=== PATIENT | female | born 1960 | race Caucasian/White ===

== ENCOUNTER 2017-02-08 16:30 | Emergency (ER) | payer BC ==
[2017-02-08 17:01] VITALS: BP 132/83
--- NOTE | 2017-02-08 18:07 | UC ---
Skin Complaint HPI - HPI Summary HPI Summary: The patient comes in today for: 1. Skin condition: Onset: 2-3 hours. Palliative/provocative: Pressing or flexing to a fish makes it worse. Quality: Throbbing, tightness. Region: Dorsum of the left hand. Severity: 4/10 Time: Constant. Associated symptoms: Event: She was emptying a sprinkler installer bucket and while doing so noticed a spider on her hand. She felt a bite and she shook her hand and the spider flew off. Headache: Left hand: throbbing, tightness, She also complains of feeling dizziness (unbalanced). Last Tetanus was done in the last 10 years. * - History of Current Complaint Chief Complaint: [facility] Time Seen by Provider: 02/08/17 17:49 Stated Complaint: SPIDER BITE,DIZZY, SWELLING AT THE SITE Hx Obtained From: Patient, Family/Brewmaster Hx Last Menstrual Period: 30 years ago. - Allergy/Home Medications Allergies/Adverse Reactions: Allergies Allergy/AdvReac Type Severity Reaction Status Date / Time Sulfa Drugs Allergy Severe Hives Verified 12/31/16 14:19 artifical chemical Allergy Unknown Hives Uncoded 12/31/16 14:19 Home Medications: Home Medications Aspirin [Aspirin 81 MG TAB] 81 mg PO DAILY 02/08/17 [History Confirmed 02/08/17] Indomethacin CAP* [Indocin CAP*] 25 mg PO BID 02/08/17 [History Confirmed ] Montelukast Sodium TAB* [Singulair 5 mg TAB*] 5 mg PO DAILY 02/08/17 [History Confirmed 02/08/17] Review of Systems Constitutional: Negative Skin: Rash Eyes: Negative ENT: Negative Respiratory: Negative Cardiovascular: Negative Gastrointestinal: Negative Genitourinary: Negative All Other Systems Reviewed And Are Negative: Yes PMH/Surg Hx/FS Hx/Imm Hx Previously Healthy: No - Tremor of head, Rheumatoid arthritis, Cardiovascular History: Hypertension Respiratory History: Asthma Psychological History: Anxiety - Surgical History Surgical History: Yes Surgery Procedure, Year, and Place: TOTAL RIGHT KNEE RECONSTRUCTION, ACL REPAIR , TWO RIGHT KNEE SCOPINGS,TOTAL HYSTERECTOMY,RECTAL REPAIR,LASER EYE SURGERY. LAPROSCOPIC ABLASION, LYMPH GLAND BIOPSY. ACL REPAIR RIGHT-SCAR TISSUE REMOVED FROM RIGTH ARM - Family History Known Family History: Positive: Cardiac Disease, Hypertension, Diabetes - Social History Occupation: Unemployed Lives: With Family Alcohol Use: Rare Substance Use Type: None Smoking Status (MU): Never Smoked Tobacco - Immunization History Most Recent Tetanus Shot: Within past 10 yrs. Physical Exam Triage Information Reviewed: Yes Appearance: Well-Appearing, No Pain Distress, Well-Nourished Vital Signs: Initial Vital Signs Temp 98.0 F 02/08/17 16:54 Pulse 79 02/08/17 16:54 Resp 18 02/08/17 16:54 BP 132/83 02/08/17 16:54 Pulse Ox 100 02/08/17 16:54 Vital Signs Reviewed: Yes Eyes: Positive: Conjunctiva Clear. Negative: Discharge ENT: Positive: Hearing grossly normal. Negative: Pharyngeal erythema, Nasal congestion, Nasal drainage, TM bulging, TM dull, TM red, Tonsillar swelling, Tonsillar exudate Dental: Negative: Gross Decay/Caries @, Dental Fracture @ Neck: Positive: Supple, Nontender, No Lymphadenopathy. Negative: Nuchal Rigidity Respiratory: Positive: Lungs clear, No respiratory distress, No accessory muscle use. Negative: Crackles, Wheezing Cardiovascular: Positive: RRR, No Murmur Abdomen Description: Positive: Nontender, No Organomegaly, Soft. Negative: Distended, Guarding, Peritoneal Signs Musculoskeletal: Positive: Strength Intact, ROM Intact, Edema @, Other: - Left hand: There was an ecchymotic area of the dorsum of the left hand with central induration. There was tenderness present. There was mild edema. He had full range of motion of her left hand/fingers. Neurological: Positive: Alert, Muscle Tone Normal Psychological: Positive: Age Appropriate Behavior, Consolable Skin: Negative: rashes, breakdown Course/Dx - Course Course Of Treatment: Patient told about spider bite care and also her was told of this. - Differential Diagnoses - Skin Complaint Differential Diagnoses: Impetigo, Tinea - Diagnoses Provider Diagnoses: Insect bite. Discharge - Discharge Plan Condition: Stable Disposition: HOME Patient Education Materials: Insect Bite or Sting (ED) Referrals: Ninoska Mina MD [Primary Care Provider] - 2 Days (Please see your primary care provider in a couple days to see how well you are doing. If you get worse , please be seen sooner. ) Additional Instructions: Please see your primary care provider in 2-3 days to see how well you are doing. If you get worse (increasing redness, soreness, swelling or discharge) please be seen sooner. Elevated and apply cold compresses (20 minutes on, and 20 minutes off) several times a day for the next 48 hours.).
== END 2017-02-08 18:50 | disposition home or self-care (01) ==
LOC: UCEAST 16:30
DX: S60.562A Insect bite (nonvenomous) of left hand, initial encounter (principal); W57.XXXA Bitten or stung by nonvenomous insect and other nonvenomous arthropods, initial encounter; Y92.9 Unspecified place or not applicable
CPT/HCPCS: 99212; G0463

== ENCOUNTER 2017-10-27 07:30 | Inpatient (IN) | payer BC ==
--- NOTE | 2017-10-14 20:54 | HP ---
HISTORY AND PHYSICAL: DATE OF OFFICE VISIT: 10/14/17 DATE OF SURGERY: 10/27/17 SURGEON: Eugenie Braden MD* (dictated by LATHA Oliveira). PROCEDURE: Right total knee arthroplasty. CHIEF COMPLAINT: Right knee pain. HISTORY OF PRESENT ILLNESS: Ms. De Dios is a 57-year-old female with complaints of right knee pain. She has failed conservative management and elected to proceed with a right total knee arthroplasty, which is scheduled for 10/27/[address] Braden. PAST MEDICAL HISTORY: Hypertension, anxiety, cervical dystonia, chronic pain syndrome, ankylosing spondylitis, hyperlipidemia and asthma. PAST SURGICAL HISTORY: Tubal ligation, hysterectomy, vein stripping, right knee arthroscopy x5, axillary lymphadenectomy, laser eye surgery and alex- neuropathy. CURRENT MEDICATIONS: 1. Montelukast sodium 10 mg daily. 2. EpiPen as needed. 3. mg twice daily. 4. Trazodone 50 mg q.h.s. 5. Propranolol 20 mg twice a day. 6. Clonazepam 0.5 mg as needed. 7. Dymista, allergy. 8. Lilli, allergy. 9. Dulera. 10. Pazeo. 11. Ventolin HFA. 12. Oxybutynin chloride 5 mg daily. 13. Hair Skin and Nails every day. 14. Calcium with vitamin D daily. 15. Vitamin B and fish oil. ALLERGIES: BIAXIN, environmental and CODEINE causing nausea. FAMILY HISTORY: Family history of diabetes, aortic aneurysm, coronary artery disease, stroke, Castleman's disease and schizophrenia. SOCIAL HISTORY: She is a 57-year-old female. She lives with her . She is a retired teacher at [employer]. She does not smoke, use drugs or alcohol. REVIEW OF SYSTEMS: A complete 14 point review of systems was reviewed with the patient, is positive for asthma. She denies history of DVT, PE, hepatitis C or HIV. PHYSICAL EXAM: GENERAL: She is well developed, well nourished, in no acute distress. VITAL SIGNS: She stands 5 feet 3 inches tall, weighs 135 pounds, her blood pressure is 126/86, heart rate is 80. HEENT: She is normocephalic, atraumatic. NECK: Supple. No palpable lymph nodes. PULMONARY: Lungs are clear to auscultation bilaterally. CARDIO: Regular rate and rhythm. Strong S1 and S2. ABDOMEN: Soft, nontender, nondistended. NEUROLOGIC: She is alert and oriented x3. Cranial nerves II through XII are intact. MUSCULOSKELETAL: Right lower extremity, skin is intact. There are no open wounds or abrasions. She has some tenderness over the medial and lateral joint line. 5 to 130 degrees of motion with patellofemoral crepitus. There is a moderate effusion. 2+ dorsalis pedis pulses. She has intact sensation in her lower extremities. Muscle group strengths are intact at 5/5. ASSESSMENT AND PLAN: Ms. De Dios is a 57-year-old female with end-stage osteoarthritis of right knee. She has failed conservative management and elected to proceed with a right total knee arthroplasty, which is scheduled for 10/27/[address] Braden discussed the risks and benefits of the surgery on today's visit. All of her questions are answered. She will follow with Dr. Braden in 2 weeks after the surgery. LATHA OLIVEIRA [id number]/[facility] #: [id number] ABILIO
[~2017-10-27 07:30] MED LIST: Acetaminophen IV 1GM/100ML * 1,000 MG/100 ML VIAL IVPB ONE; Buffered Lidocaine 0.9% SYRIN* 5 ML/SYR SYRINGE INTRADERM ONE; Dexamethasone IV* 4 MG/ML 1 ML (4 MG) IV SLOW PU ONE; Famotidine IV* 10 MG/ML 2 ML (20 mg) IV ONE; Gabapentin CAP(*) 300 MG PO ONE; celeCOXIB CAP* 200 MG PO ONE
[2017-10-27] MEDS ORDERED: Famotidine IV* 10 MG/ML 2 ML (20 mg) ONE (07:42)
[2017-10-27] MEDS ORDERED: Gabapentin CAP(*) 300 MG ONE (07:42)
[2017-10-27] MEDS ORDERED: celeCOXIB CAP* 100 MG ONE (07:42)
[2017-10-27] MEDS ORDERED: ceFAZolin 2 GM (*##) 2 GM/100 ML BAG USE CEFA2SOL IVPB ONE (07:42)
[2017-10-27] MEDS ORDERED: Buffered Lidocaine 0.9% SYRIN* 5 ML/SYR SYRINGE ONE (07:42)
[2017-10-27] MEDS ORDERED: Dexamethasone IV* 4 MG/ML 1 ML (4 MG) ONE (07:42)
[2017-10-27] MEDS ORDERED: Acetaminophen IV 1GM/100ML * 100 ML ONE (07:45)
--- OUTSIDE RECORDS SUMMARY | 2017-10-27 07:46 | XMS REPORT ---
:1960 External Reference #:[id number] Author Organization [facility] Address [address] [address] Phone [phone] Care Team Providers Name Role Phone Ninoska Mina MD Primary Care Physician Unavailable Payers Type Date Identification Numbers Payment Provider Subscriber Commercial Effective: Policy Number: [id number] BS Facets Arden De Dios 2011 PayID: [id number] [address] [address] [place] [address] Workers Compensation Expires: Policy Number: TST Workers Arden De Dios 2011 [id number] Comp Onset: 2011 PayID: [id number] [address] [place] [address] Medigap Part B Effective: 2010 Policy Number: BS Of [place] Arden De Dios [id number] Expires: 2011 PayID: [id number] [address] [address] [place] [address] Workers Compensation Expires: 2011 Policy Number: TSTWC Arden De Dios [id number] Onset: 2011 PayID: [id number] [address] [place] [id number] Advance Directives Type Date Description Status Comment Other Directive 09/10/2017 Health Care Proxy Current and Verified Problems Date Description Provider Status Onset: 03/22/2011 Benign essential hypertension Vicenta Bashir N.PJustino Active Onset: 08/28/2012 Ankylosing spondylitis Tim Mosher M.D. Active Onset: 08/28/2012 Spinal stenosis of lumbar region Tim Mosher M.D. Active Onset: 08/20/2013 Strain of rotator cuff capsule Tim Mosher M.D. Active Onset: 08/20/2013 Chronic pharyngitis Tim Mosher M.D. Active Onset: 03/08/2014 Hyperlipidemia Tim oMsher M.D. Active Onset: 03/08/2014 Cervical spondylosis without Tim Mosher M.D. Active myelopathy Onset: 11/29/2014 Chronic pain syndrome Tim Mosher M.D. Active Onset: 10/24/2015 Anxiety Ninoska Mina M.D. Active Onset: 08/27/2016 Lumbosacral stenosis Zsoficarol Diaz, [employer] Active Onset: 02/11/2017 Localized, secondary osteoarthritis Eugenie Braden M.D. Active Onset: 02/20/2017 Isolated cervical dystonia Ninoska Mina M.D. 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, tutoring Cigarette Use Never Smoked Cigarettes ETOH Use Denies alcohol use Smoking Patient has never smoked Exercise Type/Frequency Exercises regularly Allergies, Adverse Reactions, Alerts Date Description Reaction Status Severity Comments 08/11/2010 Biaxin Urticaria active Moderate to Severe 05/21/2014 Madelia Anaphylaxis, active Moderate to Urticaria Severe 02/21/2015 Envioromental Allergic asthma active Severe 02/28/2017 Acetaminophen / Codeine active Medications Medication Date Status Form Strength Qnty SIG Indications Ordering Provider Buspirone HCL 10/10 Active Tablets 5mg 60tab 1 by Lewis s mouth Arlene, DATAC[employer] DEVELOPER twice a day Hydrocodone-Aceta 05/04 Active Tablets 5-325mg 90tab 1 tab by Eugenie ayala s mouth Sampson, every 6 M.D. hours as needed for pain Montelukast 02/21 Active Tablets 10mg 90tab 1 tab by T78.40xA Zsofia s mouth Joe, every [employer] day. Epipen 2-Ricardo 05/21 Active Solution 0.3mg/0.3 2apk 995.3 Auto-Inject ML Endo, M.D. Venlafaxine HCL 12/04 Active Caps ER 150mg 60cap take 1 24HR s capsule Cotton, by mouth M.D. twice daily Trazodone HCL 04/15 Active Tablets 50mg 30tab take 1 s tablet by Cotton, mouth M.D. nightly at bedtime as needed Propranolol HCL Active Tablets 20mg 180ta 1 by bs mouth Cotton, twice a M.D. day Clonazepam Active Tablets 0.5mg 60tab Take 1/ Ninoska s Tablet By Cotton, Mouth In M.D. The Morning And In The Afternoon , And 1 Tablet At Night *Max 2/Day* Dymista Active Suspension 137-50mcg 2 spray 461.8 Unknown /0000 /Act each nostril bid Dulera Active Aerosol 200-5mcg/ Danielewic /0000 Act z, Trini, TIO Pazeo Active Solution 0.7% Unknown /0000 Ventolin HFA Active Aerosol 108(90Bas Unknown /0000 e) mcg/Act Oxybutynin Active Tablets 5mg 1 PO qd Unknown Chloride /0000 Cemill/Bioflavono Active Tablets take 1 Unknown ids tab daily Calcium 500+D Active Tablets 500-200mg 1 by Unknown /0000 -Unit mouth twice a day B-Stress Active Capsules Unknown /0000 Fish Oil Active Capsules 1000mg 1 by Unknown /0000 mouth every day Clarinex Active Tablets 5mg once Unknown /0000 daily Cephalexin 02/11 Hx Tablets 500mg 20tab 1 by s mouth Sampson, - four M.D. 02/28 times day for 5 days Augmentin 07/21 Hx Tablets 875-125mg 20tab one by J20.9 s mouth Varn, N.P. - every 12 07/31 hours ten days Benzonatate 07/21 Hx Capsules 100mg 30cap one by J20.9 s mouth Varn, N.P. - three 08/04 daily as needed for cough Fluticasone 12/13 Hx Suspension 50mcg/Act 16gm 2 sprays 461.8 Lewis Propionate each Arlene, DATAC[employer] DEVELOPER - nostril 05/27 qd weeks Levofloxacin 11/13 Hx Tablets 500mg 10tab one by Lewis s mouth Arlene, DATAC[employer] DEVELOPER - daily for 11/23 10 Augmentin 10/31 Hx Tablets 875-125mg 14tab 1 tablet 461.8 Lewis s by mouth Arlene, DAT[employer] DEVELOPER - q12 hours 11/10 for days Fluticasone 10/31 Hx Suspension 50mcg/Act 16gm 2 sprays 461.8 Lewis Propionate each Arlene, [employer] DEVELOPER - nostril 11/12 qd weeks Cheratussin ac 10/31 Hx Syrup 100-10mg/ 118ml take 5-10 461.8 Lewis 5ML millilite Arlene, DATAC[employer] DEVELOPER - rs every 11/06 4-6 hours as needed for cough. Ventolin HFA 10/31 Hx Aerosol 108(90Bas 18uni Inhale 461.8 Lewis e) ts Two Puffs Arlene, DAT[employer] DEVELOPER - mcg/Act By Mouth 05/27 Times Daily as Needed Ciclopirox 08/13 Hx Solution 8% 6.600 apply to 110.1 ml affected Varn, N.P. - toenails 08/14 and surroundi ng skin at bedtime Ergocalciferol 10/03 Hx Capsules 62039Apxr 8caps 1 cap by Bri mouth Rabia, - every M.D., FACP Amoxicillin 08/20 Hx Capsules 500mg 30cap 1 tab po 472.1 s tid for Endo, M.D. - 10 days 09/19 Lidoderm 08/28 Hx Patches 5% 30uni topical 724.02 ts 10 hours Endo, M.D. - 10/31 Cyclobenzaprine 08/28 Hx Tablets 5mg 90tab 1 hs and 724.02 s in 3 days Endo, M.D. - increase 07/20 to 2 h s and add 1 prn Venlafaxine HCL 02/04 Hx Caps ER 150mg 60cap Take One Bri ER 24HR s Capsule Rabia, - By Mouth M.D., FACP 08/28 Twice Daily Indomethacin 08/31 Hx Capsules 25mg 360ca take 1 M45.7 ofi ps capsules Joe, - by mouth [employer] 04/19 twice daily as needed Hydrocodone/Aceta 10/10 Hx Tablets 5-325mg 30tab 1-2 tabs 728.85 Bri minophen s by mouth Rabia, - every 6 M.D., FACP 08/28 hours needed Cyclobenzaprine 05/24 Hx Tablets 5mg 30tab take one 728.85 Bri HCL s at Rabia, - bedtime M.D., FACP 11/23 as needed Indomethacin ER 1010 Hx Capsules ER 75mg take one capsule Jessica Mosher - by mouth 08/31 twice a day with food Indomethacin ER 05/24 Hx Capsules ER 75mg take one capsule Jessica Mosher - by mouth 03/01 twice a day with food Metoprolol 05/10 Hx Tablets ER 50mg 90tab Take One Bri Succinate 24HR s Tablet By Rabia - Mouth One M.D., FACP 08/28 Time Daily Hydroxychloroquin 02/09 Hx Tablets 200mg 60tab Take One Tim e Sulfate s Tablet By Jessica Mosher - Mouth 07/20 Daily Sulfasalazine 12/03 Hx Tablets 500mg 60tab 2 po bid s Jessica Mosher - 01/11 Cyclobenzaprine 12/03 Hx Tablets 5mg 30tab 1 bid Bri HCL s Zackary Camarillo M.D., FACP 01/11 Indomethacin 12/03 Hx Capsules 25mg 120ca Take Two ps Capsules Jessica Mosher - By Mouth 05/24 Twice Daily Effexor 11/23 Hx Caps ER 150mg 60cap 1 by 24HR s mouth Rabia, - twice M.D., FACP 03/08 Effexor 08/11 Hx Caps ER 150mg 60cap 1 by Bri 24HR s mouth Rabia, - twice M.D., FACP 11/23 Augmentin 08/11 Hx Tablets 500-125mg Rabia, - [facility]., [facility] 08/11 Augmentin 08/11 Hx Tablets 875-125mg 20tab one by s mouth Rabia, - every 12 M.D., FACP 09/11 hours ten days Veramyst 08/11 Hx Suspension 27.5mcg/S 1Mont 2 sprays pray h each Rabia, - nostril M.D., [facility] 05/12 daily Anamantle HC 05/05 Hx Kit 3-0.5% 20uni Apply ts Twice Cotton, - Daily For M.D. 08/11 Toprol XL 04/21 Hx Tablets ER 50mg 90tab 1 tablet 24HR s daily Rabia, - M.D., [facility] 05/10 Ivermectin 02/20 Hx 200mcg 5unit take 5 po s in 1 dose Rabia, - on empty M.D., [facility] 08/11 & repeat in 2 weeks Plaquenil Hx Tablets 200mg 60tab 1 tablet Unknown /0000 s twice a - day 02/09 Xyzal Hx Tablets 5mg 30tab 1 tablet Unknown /0000 s daily as - needed 08/28 Effexor XR Hx Caps ER 75mg 30cap 1 capsule Bri 24HR s twice a Rabia, - day M.D., FACP 08/11 Indomethacin 25MG Hx Capsules Unknown 60cap 2 tablets Tim /0000 s twice a Endo, M.D. - day 12/03 Vivelle-Dot Hx Patches 0.075mg/2 24uni 2 patches Unknown /0000 Biweek 4HR ts weekly - 02/21 Metoprolol Hx Tablets ER 50mg 90tab 1 by Unknown Succinate ER /0000 24HR s mouth - every day 03/08 Lilli Allergy Hx Tablets 1 tab by Unknown /0000 mouth at - dinner 10/10 Zyrtec Allergy Hx Tablets 10mg 1 by Unknown /0000 mouth - every Am 02/28 Tumersaid 0000 Hx Tablets 1 by Unknown /0000 mouth - daily. 10/10 Medications Administered in Office Medication Date Status Form Strength Qnty SIG Indications Ordering Provider Synvisc Or Administered Injection Eugenie Synvisc-One Berny Braden M.D. Injection 1 MG Synvisc Or Administered Injection Eugenie Synvisc-One Berny Braden M.D. Injection 1 MG Synvisc Or Administered Injection Eugenie Synvisc-One Berny Braden M.D. Injection 1 MG Depomedrol Administered Injection Eugenie 40MG Berny Braden M.D. Immunizations CPT Code Status Date Vaccine Lot # [id number] Given 05/13/2017 Influenza Virus Vaccine, Quadrivalent, Split, Preservative Free Q2037 Given 08/18/2016 Fluvirin Im 3Yrs And Older 23467 Given 06/12/2016 Influenza Virus Vaccine, Quadrivalent, Split, Preservative Free 40065 Given 06/12/2016 Influenza Virus Vaccine, Quadrivalent, Split, Preservative Free 33239 Given 06/12/2016 Influenza Virus Vaccine, Quadrivalent, Split, Preservative Free Q2037 Given 05/21/2015 Fluvirin Im 3Yrs And Older Q2037 Given 05/15/2014 Fluvirin Im 3Yrs And Older Q2035 Given 05/15/2014 Afluria Vaccine 22435 Given 09/19/2013 Tdap - Tetanus/Diptheria/Acellular Pertussis [id number] Vital Signs Date Vital Result Comment 10/14/2017 Height 63.5 inches 5'3.50" Weight 137.00 lb Heart Rate 80 /min BP Systolic 126 mmHg BP Diastolic 86 mmHg BMI (Body Mass Index) 23.9 kg/m2 10/10/2017 Weight 139.00 lb with shoes Heart Rate 81 /min BP Systolic 114 mmHg BP Diastolic 86 mmHg O2 % BldC Oximetry 98 % 05/04/2017 Height 63.5 inches 5'3.50" Weight 135.00 lb Heart Rate 79 /min BP Systolic 138 mmHg BP Diastolic 94 mmHg Pain Level 7 BMI (Body Mass Index) 23.5 kg/m2 04/27/2017 Height 63 inches 5'3" Weight 137.00 lb BP Systolic 122 mmHg BP Diastolic 80 mmHg Respiratory Rate 18 /min Pain Level 2 BMI (Body Mass Index) 24.3 kg/m2 04/20/2017 Height 63 inches 5'3" Weight 137.00 lb BP Systolic 118 mmHg BP Diastolic 76 mmHg Respiratory Rate 18 /min Pain Level 3 BMI (Body Mass Index) 24.3 kg/m2 03/11/2017 Height 63 inches 5'3" Weight 137.00 lb Heart Rate 84 /min BP Systolic 124 mmHg BP Diastolic 77 mmHg Respiratory Rate 17 /min Body Temperature 98.4 F Pain Level 4 BMI (Body Mass Index) 24.3 kg/m2 03/07/2017 Height 63 inches 5'3" Weight 137.00 lb Heart Rate 87 /min BP Systolic 114 mmHg BP Diastolic 80 mmHg Body Temperature 98.7 F Pain Level 4 O2 % BldC Oximetry 97 % BMI (Body Mass Index) 24.3 kg/m2 02/28/2017 Height 63 inches 5'3" Weight 138.25 lb Heart Rate 74 /min BP Systolic 130 mmHg BP Diastolic 80 mmHg Body Temperature 97.5 F O2 % BldC Oximetry 95 % BMI (Body Mass Index) 24.5 kg/m2 02/11/2017 Height 63 inches 5'3" Weight 140.00 lb Heart Rate 76 /min BP Systolic 126 mmHg BP Diastolic 70 mmHg Respiratory Rate 15 /min Body Temperature 97.2 F Pain Level 5 BMI (Body Mass Index) 24.8 kg/m2 10/25/2016 Weight 137.00 lb Heart Rate 83 /min BP Systolic 140 mmHg BP Diastolic 100 mmHg BP Systolic Sitting 140 mmHg BP Diastolic Sitting 92 mmHg O2 % BldC Oximetry 97 % 08/27/2016 Height 63 inches 5'3" Weight 138.25 lb Heart Rate 84 /min BP Systolic Sitting 120 mmHg BP Diastolic Sitting 70 mmHg Respiratory Rate 14 /min Pain Level 4 BMI (Body Mass Index) 24.5 kg/m2 07/21/2016 Weight 139.00 lb Heart Rate 86 /min BP Systolic Sitting 128 mmHg BP Diastolic Sitting 82 mmHg Respiratory Rate 15 /min Body Temperature 97.4 F O2 % BldC Oximetry 98 % 11/26/2015 Height 63 inches 5'3" Weight 143.00 lb Heart Rate 88 /min BP Systolic Sitting 130 mmHg BP Diastolic Sitting 80 mmHg Respiratory Rate 14 /min Pain Level 4 BMI (Body Mass Index) 25.3 kg/m2 10/24/2015 Height 63 inches 5'3" Weight 140.00 lb Heart Rate 88 /min BP Systolic Sitting 134 mmHg BP Diastolic Sitting 82 mmHg Respiratory Rate 15 /min Body Temperature 98.2 F O2 % BldC Oximetry 98 % BMI (Body Mass Index) 24.8 kg/m2 05/27/2015 Height 63 inches 5'3" Weight 140.00 lb Heart Rate 76 /min BP Systolic Sitting 120 mmHg BP Diastolic Sitting 70 mmHg Pain Level 4 BMI (Body Mass Index) 24.8 kg/m2 02/21/2015 Weight 138.00 lb Heart Rate 76 /min BP Systolic Sitting 130 mmHg BP Diastolic Sitting 88 mmHg Pain Level 6 12/11/2014 Weight 144.00 lb Heart Rate 77 /min BP Systolic Sitting 124 mmHg BP Diastolic Sitting 83 mmHg Body Temperature 97.8 F 11/29/2014 Height 63 inches 5'3" Weight 144.00 lb Heart Rate 88 /min BP Systolic Sitting 124 mmHg BP Diastolic Sitting 80 mmHg Body Temperature 99.0 F Pain Level 8 BMI (Body Mass Index) 25.5 kg/m2 10/31/2014 Height 63 inches 5'3" Weight 144.00 lb Heart Rate 74 /min BP Systolic 124 mmHg BP Diastolic 86 mmHg Body Temperature 98.3 F O2 % BldC Oximetry 96 % BMI (Body Mass Index) 25.5 kg/m2 08/13/2014 Height 63 inches 5'3" Weight 143.00 lb Heart Rate 68 /min BP Systolic Sitting 128 mmHg BP Diastolic Sitting 88 mmHg BMI (Body Mass Index) 25.3 kg/m2 08/13/2014 Height 63 inches 5'3" Weight 145.00 lb Heart Rate 68 /min BP Systolic Sitting 128 mmHg BP Diastolic Sitting 88 mmHg Pain Level 5 BMI (Body Mass Index) 25.7 kg/m2 05/21/2014 Height 63 inches 5'3" Weight 143.00 lb Heart Rate 80 /min BP Systolic Sitting 130 mmHg BP Diastolic Sitting 86 mmHg Pain Level 7 BMI (Body Mass Index) 25.3 kg/m2 03/08/2014 Height 63 inches 5'3" Weight 141.00 lb Heart Rate 76 /min BP Systolic Sitting 124 mmHg BP Diastolic Sitting 80 mmHg BMI (Body Mass Index) 25.0 kg/m2 03/08/2014 Height 63 inches 5'3" Weight 141.50 lb Heart Rate 76 /min BP Systolic Sitting 132 mmHg BP Diastolic Sitting 92 mmHg Pain Level 5 BMI (Body Mass Index) 25.1 kg/m2 12/28/2013 Height 63 inches 5'3" Weight 143.25 lb Heart Rate 88 /min BP Systolic Sitting 118 mmHg BP Diastolic Sitting 78 mmHg BMI (Body Mass Index) 25.4 kg/m2 10/19/2013 Height 63 inches 5'3" Weight 148.00 lb Heart Rate 79 /min BP Systolic Sitting 126 mmHg BP Diastolic Sitting 88 mmHg BMI (Body Mass Index) 26.2 kg/m2 09/19/2013 Height 63 inches 5'3" Weight 144.00 lb Heart Rate 76 /min BP Systolic Sitting 120 mmHg BP Diastolic Sitting 68 mmHg BMI (Body Mass Index) 25.5 kg/m2 08/20/2013 Height 63 inches 5'3" Weight 147.25 lb Heart Rate 78 /min BP Systolic Sitting 140 mmHg BP Diastolic Sitting 98 mmHg BMI (Body Mass Index) 26.1 kg/m2 07/20/2013 Weight 146.00 lb Heart Rate 78 /min BP Systolic Sitting 122 mmHg BP Diastolic Sitting 80 mmHg Body Temperature 99.0 F 10/23/2012 Height 64 inches 5'4" Weight 142.00 lb Heart Rate 77 /min BP Systolic Sitting 122 mmHg BP Diastolic Sitting 67 mmHg BMI (Body Mass Index) 24.4 kg/m2 08/28/2012 Height 64 inches 5'4" Weight 141.00 lb Heart Rate 84 /min BP Systolic Sitting 118 mmHg BP Diastolic Sitting 76 mmHg BMI (Body Mass Index) 24.2 kg/m2 11/24/2011 Height 64 inches 5'4" Weight 149.50 lb Heart Rate 72 /min BP Systolic Sitting 128 mmHg BP Diastolic Sitting 78 mmHg BMI (Body Mass Index) 25.7 kg/m2 09/23/2011 Height 64 inches 5'4" Weight 152.00 lb Heart Rate 64 /min BP Systolic Sitting 114 mmHg BP Diastolic Sitting 78 mmHg BMI (Body Mass Index) 26.1 kg/m2 07/20/2011 Height 64 inches 5'4" Weight 149.00 lb Heart Rate 74 /min BP Systolic Sitting 120 mmHg BP Diastolic Sitting 78 mmHg BMI (Body Mass Index) 25.6 kg/m2 05/24/2011 Height 64 inches 5'4" Weight 150.00 lb Heart Rate 68 /min BP Systolic Sitting 114 mmHg BP Diastolic Sitting 62 mmHg BMI (Body Mass Index) 25.7 kg/m2 05/12/2011 Height 64 inches 5'4" Weight 150.00 lb Heart Rate 68 /min BP Systolic Sitting 112 mmHg BP Diastolic Sitting 68 mmHg BMI (Body Mass Index) 25.7 kg/m2 03/22/2011 Height 64 inches 5'4" Weight 150.00 lb Heart Rate 68 /min BP Systolic Sitting 122 mmHg BP Diastolic Sitting 76 mmHg Body Temperature 98.9 F BMI (Body Mass Index) 25.7 kg/m2 01/12/2011 Height 64 inches 5'4" Weight 154.00 lb Heart Rate 80 /min BP Systolic 118 mmHg BP Diastolic 70 mmHg BMI (Body Mass Index) 26.4 kg/m2 09/11/2010 Weight 157.75 lb Heart Rate 78 /min BP Systolic 124 mmHg BP Diastolic 88 mmHg 08/11/2010 Weight 152.00 lb Heart Rate 78 /min BP Systolic 116 mmHg 128/82 BP Diastolic 90 mmHg 128/82 Body Temperature 97.7 F Results Test Date Test Result H/L Range Note Order 10/10/2017 EKG results given to laurel Type & Screen 10/10/2017 Patient Blood Type O Positive Antibody Screen NEGATIVE CBC Auto Diff 10/10/2017 White Blood Count 7.4 10^3/uL 3.5-10.8 Red Blood Count 4.67 10^6/uL 4.0-5.4 Hemoglobin 14.1 g/dL 12.0-16.0 Hematocrit 42 % 35-47 Mean Corpuscular Volume 90 fL 80-97 Mean Corpuscular Hemoglobin 30 pg 27-31 Mean Corpuscular HGB Conc 34 g/dL 31-36 Red Cell Distribution Width 13 % 10.5-15 Platelet Count 177 10^3/uL 150-450 Mean Platelet Volume 10 um3 7.4-10.4 Abs Neutrophils 5.2 10^3/uL 1.5-7.7 Abs Lymphocytes 1.2 10^3/uL 1.0-4.8 Abs Monocytes 0.8 10^3/uL 0-0.8 Abs Eosinophils 0.1 10^3/uL 0-0.6 Abs Basophils 0 10^3/uL 0-0.2 Abs Nucleated RBC 0 10^3/uL Granulocyte % 70.6 % 38-83 Lymphocyte % 15.5 % Low 25-47 Monocyte % 11.3 % High 0-7 Eosinophil % 2.0 % 0-6 Basophil % 0.6 % 0-2 Nucleated Red Blood Cells % 0.1 Basic Metabolic Panel 10/10/2017 Sodium 136 mmol/L 133-145 Potassium 4.1 mmol/L 3.5-5.0 Chloride 99 mmol/L Low 101-111 Co2 Carbon Dioxide 30 mmol/L 22-32 Anion Gap 7 mmol/L 2-11 Glucose 80 mg/dL 70-100 Blood Urea Nitrogen 14 mg/dL 6-24 Creatinine 0.72 mg/dL 0.51-0.95 BUN/Creatinine Ratio 19.4 8-20 Calcium 9.8 mg/dL 8.6-10.3 Egfr Non- 83.2 >60 Egfr 107.0 >60 1 Inr/Protime 10/10/2017 Inr 0.94 0.77-1.02 Urine Culture And 10/10/2017 Urine Culture SEE RESULT BELOW 2 Sensitivities Lipid Profile 02/21/2017 Triglycerides 45 mg/dL 3 (Trig/Chol/HDL) Cholesterol 221 mg/dL 4 HDL Cholesterol 71.7 mg/dL 5 LDL Cholesterol 140 mg/dL 6 CBC Auto Diff 10/05/2016 White Blood Count 7.9 10^3/uL 3.5-10.8 Red Blood Count 4.57 10^6/uL 4.0-5.4 Hemoglobin 13.8 g/dL 12.0-16.0 Hematocrit 41 % 35-47 Mean Corpuscular Volume 91 fL 80-97 Mean Corpuscular Hemoglobin 30 pg 27-31 Mean Corpuscular HGB Conc 33 g/dL 31-36 Red Cell Distribution Width 13 % 10.5-15 Platelet Count 155 10^3/uL 150-450 Mean Platelet Volume 11 um3 High 7.4-10.4 Abs Neutrophils 5.8 10^3/uL 1.5-7.7 Abs Lymphocytes 1.3 10^3/uL 1.0-4.8 Abs Monocytes 0.6 10^3/uL 0-0.8 Abs Eosinophils 0.1 10^3/uL 0-0.6 Abs Basophils 0.1 10^3/uL 0-0.2 Abs Nucleated RBC 0.01 10^3/uL Granulocyte % 73.3 % 38-83 Lymphocyte % 16.7 % Low 25-47 Monocyte % 7.6 % 1-9 Eosinophil % 1.0 % 0-6 Basophil % 1.4 % 0-2 Nucleated Red Blood Cells % 0.1 Comp Metabolic Panel 10/05/2016 Sodium 138 mmol/L 133-145 Potassium 4.0 mmol/L 3.5-5.0 Chloride 103 mmol/L 101-111 Co2 Carbon Dioxide 33 mmol/L High 22-32 Anion Gap 2 mmol/L 2-11 Glucose 106 mg/dL High 70-100 Blood Urea Nitrogen 16 mg/dL 6-24 Creatinine 0.70 mg/dL 0.51-0.95 BUN/Creatinine Ratio 22.9 High 8-20 Calcium 9.3 mg/dL 8.6-10.3 Total Protein 6.6 g/dL 6.4-8.9 Albumin 4.0 g/dL 3.2-5.2 Globulin 2.6 g/dL 2-4 Albumin/Globulin Ratio 1.5 1-3 Total Bilirubin 0.30 mg/dL 0.2-1.0 Alkaline Phosphatase 68 U/L 34-104 Alt 22 U/L 7-52 Ast 23 U/L 13-39 Egfr Non- 86.2 >60 Egfr 110.9 >60 7 Laboratory test finding 10/05/2016 C Reactive Protein 1.12 mg/L < 5.00 8 Erythrocyte Sed Rate 20 mm/Hr 0-30 CBC Auto Diff 11/26/2015 White Blood Count 7.6 10^3/uL 3.5-10.8 Red Blood Count 4.38 10^6/uL 4.0-5.4 Hemoglobin 13.2 g/dL 12.0-16.0 Hematocrit 40 % 35-47 Mean Corpuscular Volume 92 fL 80-97 Mean Corpuscular Hemoglobin 30 pg 27-31 Mean Corpuscular HGB Conc 33 g/dL 31-36 Red Cell Distribution Width 13 % 10.5-15 Platelet Count 171 10^3/uL 150-450 Mean Platelet Volume 10 um3 7.4-10.4 Abs Neutrophils 4.7 10^3/uL 1.5-7.7 Abs Lymphocytes 1.9 10^3/uL 1.0-4.8 Abs Monocytes 0.8 10^3/uL 0-0.8 Abs Eosinophils 0.1 10^3/uL 0-0.6 Abs Basophils 0 10^3/uL 0-0.2 Abs Nucleated RBC 0 10^3/uL Granulocyte % 62.4 % 38-83 Lymphocyte % 24.8 % Low 25-47 Monocyte % 10.6 % High 1-9 Eosinophil % 1.6 % 0-6 Basophil % 0.6 % 0-2 Nucleated Red Blood Cells % 0.1 Comp Metabolic Panel 11/26/2015 Sodium 133 mmol/L 133-145 Potassium 3.9 mmol/L 3.5-5.0 Chloride 97 mmol/L Low 101-111 Co2 Carbon Dioxide 30 mmol/L 22-32 Anion Gap 6 mmol/L 2-11 Glucose 80 mg/dL 70-100 Blood Urea Nitrogen 16 mg/dL 6-24 Creatinine 0.70 mg/dL 0.51-0.95 BUN/Creatinine Ratio 22.9 High 8-20 Calcium 9.3 mg/dL 8.6-10.3 Total Protein 6.7 g/dL 6.4-8.9 Albumin 4.4 g/dL 3.2-5.2 Globulin 2.3 g/dL 2-4 Albumin/Globulin Ratio 1.9 1-3 Total Bilirubin 0.30 mg/dL 0.2-1.0 Alkaline Phosphatase 65 U/L 34-104 Alt 23 U/L 7-52 Ast 20 U/L 13-39 Egfr Non- 86.6 >60 Egfr 111.3 >60 9 Laboratory test finding 11/26/2015 C Reactive Protein 1.23 mg/L < 5.00 10 Erythrocyte Sed Rate 18 mm/Hr 0-30 CBC Auto Diff 05/27/2015 White Blood Count 7.9 10^3/uL 4.8-10.8 Red Blood Count 4.49 10^6/uL 4.0-5.4 Hemoglobin 13.9 g/dL 12.0-16.0 Hematocrit 42 % 35-47 Mean Corpuscular Volume 95 fL 80-97 Mean Corpuscular Hemoglobin 31 pg 27-31 Mean Corpuscular HGB Conc 33 g/dL 31-36 Red Cell Distribution Width 13 % 10.5-15 Platelet Count 152 10^3/uL 150-450 Mean Platelet Volume 10 um3 7.4-10.4 Abs Neutrophils 5.3 10^3/uL 1.5-7.7 Abs Lymphocytes 1.6 10^3/uL 1.0-4.8 Abs Monocytes 0.9 10^3/uL High 0-0.8 Abs Eosinophils 0.1 10^3/uL 0-0.6 Abs Basophils 0.1 10^3/uL 0-0.2 Abs Nucleated RBC 0.01 10^3/uL Granulocyte % 67.1 % 38-83 Lymphocyte % 19.5 % Low 25-47 Monocyte % 11.7 % High 1-9 Eosinophil % 1.0 % 0-6 Basophil % 0.7 % 0-2 Nucleated Red Blood Cells % 0.1 Comp Metabolic Panel 05/27/2015 Sodium 135 mmol/L 133-145 Potassium 4.4 mmol/L 3.5-5.0 Chloride 100 mmol/L Low 101-111 Co2 Carbon Dioxide 30 mmol/L 22-32 Anion Gap 5 mmol/L 2-11 Glucose 83 mg/dL 70-100 Blood Urea Nitrogen 17 mg/dL 6-24 Creatinine 0.71 mg/dL 0.51-0.95 BUN/Creatinine Ratio 23.9 High 8-20 Calcium 9.8 mg/dL 8.6-10.3 Total Protein 6.6 g/dL 6.4-8.9 Albumin 4.4 g/dL 3.2-5.2 Globulin 2.2 g/dL 2-4 Albumin/Globulin Ratio 2.0 1-3 Total Bilirubin 0.40 mg/dL 0.2-1.0 Alkaline Phosphatase 72 U/L 34-104 Alt 39 U/L 7-52 Ast 30 U/L 13-39 Egfr Non- 85.5 >60 Egfr 109.9 >60 11 Laboratory test finding 05/27/2015 Erythrocyte Sed Rate 17 mm/Hr 0-30 C Reactive Protein < 1.00 mg/L < 5.00 12 Laboratory test finding 12/12/2014 Throat Culture (SEE NOTE) 13 CBC Auto Diff 12/11/2014 White Blood Count 6.7 10^3/uL 4.8-10.8 Red Blood Count 4.34 10^6/uL 4.0-5.4 Hemoglobin 13.5 g/dL 12.0-16.0 Hematocrit 40 % 35-47 Mean Corpuscular Volume 93 fL 80-97 Mean Corpuscular Hemoglobin 31 pg 27-31 Mean Corpuscular HGB Conc 34 g/dL 31-36 Red Cell Distribution Width 13 % 10.5-15 Platelet Count 138 10^3/uL Low 150-450 Mean Platelet Volume 12 um3 High 7.4-10.4 Abs Neutrophils 3.9 10^3/uL 1.5-7.7 Abs Lymphocytes 1.8 10^3/uL 1.0-4.8 Abs Monocytes 0.8 10^3/uL 0-0.8 Abs Eosinophils 0.1 10^3/uL 0-0.6 Abs Basophils 0.1 10^3/uL 0-0.2 Abs Nucleated RBC 0 10^3/uL Granulocyte % 58.6 % 38-83 Lymphocyte % 27.1 % 25-47 Monocyte % 11.9 % High 1-9 Eosinophil % 1.5 % 0-6 Basophil % 0.9 % 0-2 Nucleated Red Blood Cells % 0 Comp Metabolic Panel 12/11/2014 Sodium 136 mmol/L 133-145 Potassium 4.5 mmol/L 3.5-5.0 Chloride 103 mmol/L 101-111 Co2 Carbon Dioxide 29 mmol/L 22-32 Anion Gap 4 mmol/L 2-11 Glucose 90 mg/dL 70-100 Blood Urea Nitrogen 15 mg/dL 6-24 Creatinine 0.72 mg/dL 0.51-0.95 BUN/Creatinine Ratio 20.8 High 8-20 Calcium 9.0 mg/dL 8.6-10.3 Total Protein 6.6 g/dL 6.4-8.9 Albumin 4.2 g/dL 3.2-5.2 Globulin 2.4 g/dL 2-4 Albumin/Globulin Ratio 1.8 1-3 Total Bilirubin 0.20 mg/dL 0.2-1.0 Alkaline Phosphatase 66 U/L 34-104 Alt 37 U/L 7-52 Ast 29 U/L 13-39 Egfr Non- 84.1 >60 Egfr 108.2 >60 14 Laboratory test finding 12/11/2014 Ferritin 82.3 ng/mL 11-307 Vitamin B12 And Folate Serum 12/11/2014 Vitamin B12 564 pg/mL 180-914 15 Folate 15.37 ng/mL >3.99 Laboratory test 12/11/2014 TSH (Thyroid 1.92 IU/mL 0.34-5.60 finding Stimulating Horm) Laboratory test 12/11/2014 C Reactive Protein < 1.00 mg/L < 5.00 16 finding Erythrocyte Sed Rate 14 mm/Hr 0-30 Uric Acid 4.3 mg/dL 2.3-6.6 Comp Metabolic Panel 05/27/2014 Sodium 139 mmol/L 133-145 Potassium 4.5 mmol/L 3.7-5.6 Chloride 105 mmol/L 101-111 Co2 Carbon Dioxide 31 mmol/L 22-32 Anion Gap 3 mmol/L 2-11 Glucose 83 mg/dL 70-100 Blood Urea Nitrogen 18 mg/dL 6-24 Creatinine 0.70 mg/dL 0.51-0.95 BUN/Creatinine Ratio 25.7 High 8-20 Calcium 9.3 mg/dL 8.6-10.3 Total Protein 6.5 g/dL 6.4-8.9 Albumin 4.0 g/dL 3.2-5.2 Globulin 2.5 g/dL 2-4 Albumin/Globulin Ratio 1.6 1-3 Total Bilirubin 0.40 mg/dL 0.2-1.0 Alkaline Phosphatase 56 U/L 34-104 Alt 17 U/L 7-52 Ast 16 U/L 13-39 Egfr Non- 87.2 >60 Egfr 112.1 >60 17 Laboratory test finding 05/27/2014 C Reactive Protein < 1.00 mg/L &lt ; 5.00 18 Erythrocyte Sed Rate 18 mm/Hr 0-30 Lipid Profile (Trig/Chol/HDL) 05/27/2014 Triglycerides 43 mg/dL 19 Cholesterol 202 mg/dL 20 HDL Cholesterol 61.4 mg/dL 21 LDL Cholesterol 132 mg/dL 22 CBC Auto Diff 05/27/2014 White Blood Count 5.6 10^3/uL 4.8-10.8 Red Blood Count 4.60 10^6/uL 4.0-5.4 Hemoglobin 13.8 g/dL 12.0-16.0 Hematocrit 41 % 35-47 Mean Corpuscular Volume 90 fL 80-97 Mean Corpuscular Hemoglobin 30 pg 27-31 Mean Corpuscular HGB Conc 33 g/dL 31-36 Red Cell Distribution Width 13 % 10.5-15 Platelet Count 146 10^3/uL Low 150-450 Mean Platelet Volume 11 um3 High 7.4-10.4 Abs Neutrophils 3.7 10^3/uL 1.5-7.7 Abs Lymphocytes 1.2 10^3/uL 1.0-4.8 Abs Monocytes 0.6 10^3/uL 0-0.8 Abs Eosinophils 0.1 10^3/uL 0-0.6 Abs Basophils 0 10^3/uL 0-0.2 Abs Nucleated RBC 0 10^3/uL Granulocyte % 65.9 % 38-83 Lymphocyte % 21.7 % Low 25-47 Monocyte % 9.9 % High 1-9 Eosinophil % 1.7 % 0-6 Basophil % 0.8 % 0-2 Nucleated Red Blood Cells % 0 CBC Auto Diff 11/23/2013 White Blood Count 6.5 10^3/uL 4.8-10.8 Red Blood Count 4.38 10^6/uL 4.0-5.4 Hemoglobin 13.5 g/dL 12.0-16.0 Hematocrit 39 % 35-47 Mean Corpuscular Volume 89 fL 80-97 Mean Corpuscular Hemoglobin 31 pg 27-31 Mean Corpuscular HGB Conc 35 g/dL 31-36 Red Cell Distribution Width 13 % 10.5-15 Platelet Count 131 10^3/uL Low 150-450 Mean Platelet Volume 12 um3 High 7.4-10.4 Abs Neutrophils 4.2 10^3/uL 1.5-7.7 Abs Lymphocytes 1.5 10^3/uL 1.0-4.8 Abs Monocytes 0.7 10^3/uL 0-0.8 Abs Eosinophils 0.1 10^3/uL 0-0.6 Abs Basophils 0 10^3/uL 0-0.2 Abs Nucleated RBC 0 10^3/uL Granulocyte % 64.6 % 38-83 Lymphocyte % 23.1 % Low 25-47 Monocyte % 10.5 % High 1-9 Eosinophil % 1.2 % 0-6 Basophil % 0.6 % 0-2 Nucleated Red Blood Cells % 0 Laboratory test finding 11/23/2013 C Reactive Protein < 1.00 mg/L &lt ; 5.00 23 Erythrocyte Sed Rate 20 mm/Hr 0-30 Comp Metabolic Panel 11/23/2013 Sodium 137 mmol/L 133-145 Potassium 4.7 mmol/L 3.7-5.6 Chloride 103 mmol/L 101-111 Co2 Carbon Dioxide 31 mmol/L 22-32 Anion Gap 3 mmol/L 2-11 Glucose 104 mg/dL High 70-100 Blood Urea Nitrogen 19 mg/dL 6-24 Creatinine 0.93 mg/dL 0.51-0.95 BUN/Creatinine Ratio 20.4 High 8-20 Calcium 9.1 mg/dL 8.6-10.3 Total Protein 6.5 g/dL 6.4-8.9 Albumin 4.2 g/dL 3.2-5.2 Globulin 2.3 g/dL 2-4 Albumin/Globulin Ratio 1.8 1-3 Total Bilirubin 0.20 mg/dL 0.2-1.0 Alkaline Phosphatase 58 U/L 34-104 Alt 18 U/L 7-52 Ast 19 U/L 13-39 Egfr Non- 62.8 >60 Egfr 80.8 >60 24 Immunoglobulins Serum Quant 11/23/2013 Immunoglobulin G 1140 mg/dL 767 - 1590 25 Immunoglobulin M 89 mg/dL 37 - 286 Immunoglobulin A 284 mg/dL 61 - 356 Protein Electrophoresis 11/23/2013 Total Protein(Pep) 6.7 g/dL 6.3 - 7.9 Albumin 3.5 g/dL 3.4-4.7 Alpha-1 Globulin 0.2 g/dL 0.1-0.3 Alpha-2 Globulin 0.8 g/dL 0.6-1.0 Beta Globulin 0.9 g/dL 0.7-1.2 Gamma Globulin 1.3 g/dL 0.6-1.6 Albumin/Globulin Ratio 1.09 Impression See Comment 26 Laboratory test finding 11/23/2013 Amaris (Anti-Nuclear AB) Negative Negative Screen Eileen Screen Negative Negative 27 Lipid Profile (Trig/Chol/HDL) 09/27/2013 Triglycerides 77 mg/dL 28 Cholesterol 204 mg/dL 29 HDL Cholesterol 60.3 mg/dL 30 LDL Cholesterol 128 mg/dL 31 Laboratory test finding 09/27/2013 TSH (Thyroid 2.11 IU/mL 0.34-5.60 Stimulating Horm) Vitamin D, 25 Hydroxy 09/27/2013 25-Hydroxy Vitamin D2 <4.0 ng/mL 25-Hydroxy Vitamin D3 27 ng/mL 25-Hydroxy Vitamin D Total 27 ng/mL 32 Laboratory test finding 09/27/2013 Hepatitis C Antibody Nonreactive Nonreactive 33 CBC Auto Diff 08/20/2013 White Blood Count 6.8 10^3/uL 4.8-10.8 Red Blood Count 4.28 10^6/uL 4.0-5.4 Hemoglobin 12.8 g/dL 12.0-16.0 Hematocrit 38 % 35-47 Mean Corpuscular Volume 89 fL 80-97 Mean Corpuscular Hemoglobin 30 pg 27-31 Mean Corpuscular HGB Conc 34 g/dL 31-36 Red Cell Distribution Width 13 % 10.5-15 Platelet Count 167 10^3/uL 150-450 34 Mean Platelet Volume 11 um3 High 7.4-10.4 Abs Neutrophils 4.3 10^3/uL 1.5-7.7 Abs Lymphocytes 1.6 10^3/uL 1.0-4.8 Abs Monocytes 0.7 10^3/uL 0-0.8 Abs Eosinophils 0.2 10^3/uL 0-0.6 Abs Basophils 0.1 10^3/uL 0-0.2 Abs Nucleated RBC 0 10^3/uL Granulocyte % 63.0 % 38-83 Lymphocyte % 23.6 % Low 25-47 Monocyte % 10.1 % High 1-9 Eosinophil % 2.5 % 0-6 Basophil % 0.8 % 0-2 Nucleated Red Blood Cells % 0 Laboratory test finding 08/20/2013 Erythrocyte Sed Rate 14 mm/Hr 0-30 35 C Reactive Protein < 0.5 mg/dL Less than 0.5 Comp Metabolic Panel 08/20/2013 Sodium 134 mmol/L 133-145 Potassium 4.1 mmol/L 3.5-5.0 Chloride 99 mmol/L Low 101-111 Co2 Carbon Dioxide 30.0 mmol/L 22-32 Anion Gap 5.0 mmol/L 2-11 Glucose 91 mg/dL 70-100 Blood Urea Nitrogen 19 mg/dL 6-24 Creatinine 0.60 mg/dL 0.50-1.40 BUN/Creatinine Ratio 31.7 High 8-20 Calcium 9.3 mg/dL 8.1-9.9 Total Protein 6.7 g/dL 6.2-8.1 Albumin 3.9 g/dL 3.6-5.4 Globulin 2.8 g/dL 2-4 Albumin/Globulin Ratio 1.4 1-3 Total Bilirubin 0.4 mg/dL 0.4-1.5 Alkaline Phosphatase 65 U/L 30-110 Alt 25 U/L 14-54 Ast 22 U/L 12-42 Egfr Non- 104.2 >60 Egfr 134.0 >60 36 Laboratory test finding 07/20/2013 Rapid Strep A neg CBC Auto Diff 01/31/2013 White Blood Count 7.2 10^3/uL 4.8-10.8 Red Blood Count 4.27 10^6/uL 4.0-5.4 Hemoglobin 12.9 g/dL 12.0-16.0 Hematocrit 39 % 35-47 Mean Corpuscular Volume 91 fL 80-97 Mean Corpuscular Hemoglobin 30 pg 27-31 Mean Corpuscular HGB Conc 33 g/dL 31-36 Red Cell Distribution Width 13 % 10.5-15 Platelet Count 195 10^3/uL 150-450 37 Mean Platelet Volume 11 um3 High 7.4-10.4 Abs Neutrophils 4.6 10^3/uL 1.5-7.7 Abs Lymphocytes 1.5 10^3/uL 1.0-4.8 Abs Monocytes 0.9 10^3/uL High 0-0.8 Abs Eosinophils 0.2 10^3/uL 0-0.6 Abs Basophils 0.1 10^3/uL 0-0.2 Abs Nucleated RBC 0.01 10^3/uL Granulocyte % 64.2 % 38-83 Lymphocyte % 20.4 % Low 25-47 Monocyte % 12.1 % High 1-9 Eosinophil % 2.5 % 0-6 Basophil % 0.8 % 0-2 Nucleated Red Blood Cells % 0.1 Comp Metabolic Panel 01/31/2013 Sodium 137 mmol/L 133-145 Potassium 3.9 mmol/L 3.5-5.0 Chloride 102 mmol/L 101-111 Co2 Carbon Dioxide 30.0 mmol/L 22-32 Anion Gap 5.0 mmol/L 2-11 Glucose 93 mg/dL 70-100 Blood Urea Nitrogen 15 mg/dL 6-24 Creatinine 0.80 mg/dL 0.50-1.40 BUN/Creatinine Ratio 18.8 8-20 Calcium 9.0 mg/dL 8.1-9.9 Total Protein 6.2 g/dL 6.2-8.1 Albumin 3.8 g/dL 3.6-5.4 Globulin 2.4 g/dL 2-4 Albumin/Globulin Ratio 1.6 1-3 Total Bilirubin 0.4 mg/dL 0.4-1.5 Alkaline Phosphatase 69 U/L 30-110 Alt 27 U/L 14-54 Ast 23 U/L 12-42 Egfr Non- 75.0 >60 Egfr 96.5 >60 38 Laboratory test finding 01/31/2013 TSH (Thyroid Stimulating 0.98 miu/mL 0.34-5.60 Horm) Comp Metabolic Panel 08/31/2012 Sodium 138 mmol/L 133-145 Potassium 4.7 mmol/L 3.5-5.0 Chloride 101 mmol/L 101-111 Co2 Carbon Dioxide 31.0 mmol/L 22-32 Anion Gap 6.0 mmol/L 2-11 Glucose 93 mg/dL 70-100 Blood Urea Nitrogen 18 mg/dL 6-24 Creatinine 0.90 mg/dL 0.50-1.40 BUN/Creatinine Ratio 20.0 8-20 Calcium 9.6 mg/dL 8.1-9.9 Total Protein 6.1 g/dL Low 6.2-8.1 Albumin 3.9 g/dL 3.6-5.4 Globulin 2.2 g/dL 2-4 Albumin/Globulin Ratio 1.8 1-3 Total Bilirubin 0.4 mg/dL 0.4-1.5 Alkaline Phosphatase 64 U/L 30-110 Alt 19 U/L 14-54 Ast 18 U/L 12-42 Egfr Non- 65.5 >60 Egfr 84.2 >60 39 Laboratory test finding 08/31/2012 Erythrocyte Sed Rate 17 mm/Hr 0-30 C Reactive Protein < 0.5 mg/dL Less than 0.5 Laboratory test finding 03/23/2011 Amylase 42 U/L 20-120 40 Laboratory test finding 03/22/2011 Lipase 33 U/L 22-51 Comp Metabolic Panel 03/22/2011 Sodium 137 mmol/L 135-145 Potassium 4.2 mmol/L 3.5-5.0 Chloride 104 mmol/L 101-111 Co2 (Carbon Dioxide) 27.0 mmol/L 22-32 Anion Gap 6.0 mmol/L 2-11 41 Glucose 91 mg/dL 70-100 BUN 13 mg/dL 6-24 Creatinine 0.80 mg/dL 0.50-1.40 One Over Creatinine 1.20 BUN/Creatinine Ratio 16.3 8-20 Calcium 9.2 mg/dL 8.1-9.9 Total Protein 6.4 GM/DL 6.2-8.1 Albumin 4.0 GM/DL 3.6-5.4 Globulin 2.4 GM/DL 2-4 Albumin/Globulin Ratio 1.7 1-3 Bilirubin Total 0.5 mg/dL 0.4-1.5 42 Alkaline Phosphatase 59 U/L 30-110 Alt (SGPT) 23 U/L 14-54 Ast (Sgot) 23 U/L 12-42 eGFR Non- 75.6 > 60 eGFR 97.3 > 60 43 CBC With Manual Diff 03/22/2011 White Blood Count 6.8 CUMM 4.8-10.8 Red Cell Count 4.36 CUMM 4.2-5.4 Hemoglobin 13.5 g/dL 12.0-16.0 Hematocrit 39 % 35-47 Mean Corpuscular Volume 88 um3 79-97 Mean Corpuscular Hemoglob 31 pg 27-31 Mean Corpuscular HGB Cone 35 g/dL 32-36 Redcell Distribution WDTH 13 % 10.5-15 Platelet Count 138 CUMM Low 150-450 Mean Platelet Volume 11.2 um3 High 7.4-10.4 Polysegmented Neutrophil 74 % 38-83 Band Neutrophil 4 % 0-8 Lymphocyte 18 % Low 25-47 Monocyte 4 % 0-13 Absolute Neutrophil Count 5.3 RBC Morphology NORMAL Laboratory test 02/11/2011 C Reactive Protein < 0.5 mg/dL Less Than 0.5 finding CBC With Manual Diff 02/11/2011 White Blood Count 7.1 CUMM 4.8-10.8 Red Cell Count 4.36 CUMM 4.2-5.4 Hemoglobin 13.4 g/dL 12.0-16.0 Hematocrit 40 % 35-47 Mean Corpuscular Volume 91 um3 79-97 Mean Corpuscular Hemoglob 31 pg 27-31 Mean Corpuscular HGB Cone 34 g/dL 32-36 Redcell Distribution WDTH 12 % 10.5-15 Platelet Count 150 CUMM 150-450 Mean Platelet Volume 11.9 um3 High 7.4-10.4 Polysegmented Neutrophil 65 % 38-83 Lymphocyte 25 % 25-47 Monocyte 9 % 0-13 Eosinophil 1 % 0-6 Absolute Neutrophil Count 4.6 RBC Morphology NORMAL Laboratory test finding 02/11/2011 Erythrocyte Sed Rate 9 MM/HR 0-30 Comp Metabolic Panel 02/11/2011 Sodium 138 mmol/L 135-145 Potassium 4.3 mmol/L 3.5-5.0 Chloride 102 mmol/L 101-111 Co2 (Carbon Dioxide) 30.0 mmol/L 22-32 Anion Gap 6.0 mmol/L 2-11 44 Glucose 84 mg/dL 70-100 BUN 14 mg/dL 6-24 Creatinine 0.80 mg/dL 0.50-1.40 One Over Creatinine 1.20 BUN/Creatinine Ratio 17.5 8-20 Calcium 9.8 mg/dL 8.1-9.9 Total Protein 6.1 GM/DL Low 6.2-8.1 Albumin 4.1 GM/DL 3.6-5.4 Globulin 2.0 GM/DL 2-4 Albumin/Globulin Ratio 2.1 1-3 Bilirubin Total 0.5 mg/dL 0.4-1.5 45 Alkaline Phosphatase 51 U/L 30-110 Alt (SGPT) 23 U/L 14-54 Ast (Sgot) 22 U/L 12-42 eGFR Non- 75.6 > 60 eGFR 97.3 > 60 46 1 Because ethnic data is not always readily available, this report includes an eGFR for both -Americans and non- Americans. The National Kidney Disease Education Program (NKDEP) does not endorse the use of the MDRD equation for patients that are not between the ages of 18 and 70, are , have extremes of body size, muscle mass, or nutritional status, or are non- or non-. According to the National Kidney Foundation, irrespective of diagnosis, the stage of the disease is based on the level of kidney function: Stage Description GFR(mL/min/1.73 m(2)) 1 Kidney damage with normal or decreased GFR 90 2 Kidney damage with mild decrease in GFR 60-89 3 Moderate decrease in GFR 30-59 4 Severe decrease in GFR 15-29 5 Kidney failure <15 (or dialysis) 2 SEE RESULT BELOW Name: ARDEN DE DIOS : [address]: Lewis Jacobs NP Acct: [id number] Unit: [id number] AGE: 57 Location: [facility] Re10/10/17 SEX: F Status: REG REF SPEC: [id number] RAFI: 10/10/17-[address]: Lewis Jacobs NP REQ: [id number] RECD: 10/10/17 STATUS: COMP _ SOURCE: URINE SPDESC: ORDERED: Urine Culture Procedure Result Reported Site Urine Culture Final 10/11/17- 1212 ML No Growth (<1,000 CFU/mL) * ML - MAIN LAB ([facility]) . END OF REPORT * ML=Testing performed at Main Lab DEPARTMENT OF PATHOLOGY, [address] [place] [address] Gwyn Palmer M.D. Director [facility] # [id number] 3 Desirable <150 Borderline high 150-199 High 200-499 Very High >500 4 Desirable <200 Borderline high 200-239 High >239 5 Low <40 Desirable: 40-60 High: >60 6 Desirable: <100 mg/dL Near Optimal: 100-129 mg/dL Borderline High: 130-159 mg/dL High: 160-189 mg/dL Very High: >189 mg/dL 7 Because ethnic data is not always readily available, this report includes an eGFR for both -Americans and non- Americans. The National Kidney Disease Education Program (NKDEP) does not endorse the use of the MDRD equation for patients that are not between the ages of 18 and 70, are , have extremes of body size, muscle mass, or nutritional status, or are non- or non-. According to the National Kidney Foundation, irrespective of diagnosis, the stage of the disease is based on the level of kidney function: Stage Description GFR(mL/min/1.73 m(2)) 1 Kidney damage with normal or decreased GFR 90 2 Kidney damage with mild decrease in GFR 60-89 3 Moderate decrease in GFR 30-59 4 Severe decrease in GFR 15-29 5 Kidney failure <15 (or dialysis) 8 Acute inflammation: >10.00 9 Because ethnic data is not always readily available, this report includes an eGFR for both -Americans and non- Americans. The National Kidney Disease Education Program (NKDEP) does not endorse the use of the MDRD equation for patients that are not between the ages of 18 and 70, are , have extremes of body size, muscle mass, or nutritional status, or are non- or non-. According to the National Kidney Foundation, irrespective of diagnosis, the stage of the disease is based on the level of kidney function: Stage Description GFR(mL/min/1.73 m(2)) 1 Kidney damage with normal or decreased GFR 90 2 Kidney damage with mild decrease in GFR 60-89 3 Moderate decrease in GFR 30-59 4 Severe decrease in GFR 15-29 5 Kidney failure <15 (or dialysis) 10 Acute inflammation: >10.00 11 Because ethnic data is not always readily available, this report includes an eGFR for both -Americans and non- Americans. The National Kidney Disease Education Program (NKDEP) does not endorse the use of the MDRD equation for patients that are not between the ages of 18 and 70, are , have extremes of body size, muscle mass, or nutritional status, or are non- or non-. According to the National Kidney Foundation, irrespective of diagnosis, the stage of the disease is based on the level of kidney function: Stage Description GFR(mL/min/1.73 m(2)) 1 Kidney damage with normal or decreased GFR 90 2 Kidney damage with mild decrease in GFR 60-89 3 Moderate decrease in GFR 30-59 4 Severe decrease in GFR 15-29 5 Kidney failure <15 (or dialysis) 12 Acute inflammation: >10.00 13 RUN DATE: 12/14/14 [facility] LAB LIVE PAGE 1 RUN TIME: [address] [place] [id number] Specimen Inquiry Name: ARDEN DE DIOS : [address]: Lewis Jacobs DATACAP DEVELOPER Acct: [id number] Unit: [id number] AGE: 54 Location: [facility] Re12/12/14 SEX: F Status: REG REF SPEC: [id number] RAFI: 12/12/[address]: Lewis Jacobs NP REQ: [id number] RECD: 12/12/14 STATUS: COMP _ SOURCE: THROAT SPDESC: ORDERED: Throat Culture QUERIES: Provider Requisition # [id number] Procedure Result Verified Site Throat Culture Final 12/14/14- 810 ML Organism 1 NORMAL MARIEL Quantity 3+ * ML - MAIN LAB ([facility]) . END OF REPORT * ML=Testing performed at Main Lab DEPARTMENT OF PATHOLOGY, [address] [place] [id number] Gwyn Palmer M.D. Director [facility] # [id number] 14 Because ethnic data is not always readily available, this report includes an eGFR for both -Americans and non- Americans. The National Kidney Disease Education Program (NKDEP) does not endorse the use of the MDRD equation for patients that are not between the ages of 18 and 70, are , have extremes of body size, muscle mass, or nutritional status, or are non- or non-. According to the National Kidney Foundation, irrespective of diagnosis, the stage of the disease is based on the level of kidney function: Stage Description GFR(mL/min/1.73 m(2)) 1 Kidney damage with normal or decreased GFR 90 2 Kidney damage with mild decrease in GFR 60-89 3 Moderate decrease in GFR 30-59 4 Severe decrease in GFR 15-29 5 Kidney failure <15 (or dialysis) 15 Normal Range 180 to 914 Indeterminate Range 145 to 180 Deficient Range <145 16 Acute inflammation: >10.00 17 Because ethnic data is not always readily available, this report includes an eGFR for both -Americans and non- Americans. The National Kidney Disease Education Program (NKDEP) does not endorse the use of the MDRD equation for patients that are not between the ages of 18 and 70, are , have extremes of body size, muscle mass, or nutritional status, or are non- or non-. According to the National Kidney Foundation, irrespective of diagnosis, the stage of the disease is based on the level of kidney function: Stage Description GFR(mL/min/1.73 m(2)) 1 Kidney damage with normal or decreased GFR 90 2 Kidney damage with mild decrease in GFR 60-89 3 Moderate decrease in GFR 30-59 4 Severe decrease in GFR 15-29 5 Kidney failure <15 (or dialysis) 18 Acute inflammation: >10.00 19 Desirable <150 Borderline high 150-199 High 200-499 Very High >500 20 Desirable <200 Borderline high 200-239 High >239 21 Low <40 Desirable: 40-60 High: >60 22 Desirable <100 Near Optimal 100-129 Borderline high 130-159 High 160-189 Very High >189 23 Acute inflammation: >10.00 24 Because ethnic data is not always readily available, this report includes an eGFR for both -Americans and non- Americans. The National Kidney Disease Education Program (NKDEP) does not endorse the use of the MDRD equation for patients that are not between the ages of 18 and 70, are , have extremes of body size, muscle mass, or nutritional status, or are non- or non-. According to the National Kidney Foundation, irrespective of diagnosis, the stage of the disease is based on the level of kidney function: Stage Description GFR(mL/min/1.73 m(2)) 1 Kidney damage with normal or decreased GFR 90 2 Kidney damage with mild decrease in GFR 60-89 3 Moderate decrease in GFR 30-59 4 Severe decrease in GFR 15-29 5 Kidney failure <15 (or dialysis) 25 Test Performed by: [place] [address] Tobacco Drummer: Shahbaz Meade III, M.D. 26 RESULT: No apparent monoclonal protein on serum electrophoresis. Test Performed by: [place] [address] Tobacco Drummer: Shahbaz Meade III, M.D. 27 The above EILEEN screen is designed for the detection of antibodies to extractable nuclear antigen (EILEEN) in human serum. It is a combination test for the detection of antibodies to BIOMED TECH, Sm, SS-A (Ro), and SS-B (La) nuclear antigens. 28 Desirable <150 Borderline high 150-199 High 200-499 Very High >500 29 Desirable <200 Borderline high 200-239 High >239 30 Low <40 Desirable: 40-60 High: >60 31 Desirable <100 Near Optimal 100-129 Borderline high 130-159 High 160-189 Very High >189 32 -- REFERENCE VALUE -- 25-HYDROXY D TOTAL (D2+D3) Optimum levels in the healthy population are 20-50, patients with bone disease may benefit from higher levels within this range. Test Performed by: [address] [address] Tobacco Drummer: Shahbaz Meade III, M.D. 33 NON-FASTING 34 CONFIRMED BY ESTIMATE ON BLOOD SMEAR 35 @08/20/13 1851: Slide Review added. RFLXG=SR. 36 Because ethnic data is not always readily available, this report includes an eGFR for both -Americans and non- Americans. The National Kidney Disease Education Program (NKDEP) does not endorse the use of the MDRD equation for patients that are not between the ages of 18 and 70, are , have extremes of body size, muscle mass, or nutritional status, or are non- or non-. According to the National Kidney Foundation, irrespective of diagnosis, the stage of the disease is based on the level of kidney function: Stage Description GFR(mL/min/1.73 m(2)) 1 Kidney damage with normal or decreased GFR 90 2 Kidney damage with mild decrease in GFR 60-89 3 Moderate decrease in GFR 30-59 4 Severe decrease in GFR 15-29 5 Kidney failure <15 (or dialysis) 37 Platelet count confirmed by smear estimate. 38 Because ethnic data is not always readily available, this report includes an eGFR for both -Americans and non- Americans. The National Kidney Disease Education Program (NKDEP) does not endorse the use of the MDRD equation for patients that are not between the ages of 18 and 70, are , have extremes of body size, muscle mass, or nutritional status, or are non- or non-. According to the National Kidney Foundation, irrespective of diagnosis, the stage of the disease is based on the level of kidney function: Stage Description GFR(mL/min/1.73 m(2)) 1 Kidney damage with normal or decreased GFR 90 2 Kidney damage with mild decrease in GFR 60-89 3 Moderate decrease in GFR 30-59 4 Severe decrease in GFR 15-29 5 Kidney failure <15 (or dialysis) 39 Because ethnic data is not always readily available, this report includes an eGFR for both -Americans and non- Americans. The National Kidney Disease Education Program (NKDEP) does not endorse the use of the MDRD equation for patients that are not between the ages of 18 and 70, are , have extremes of body size, muscle mass, or nutritional status, or are non- or non-. According to the National Kidney Foundation, irrespective of diagnosis, the stage of the disease is based on the level of kidney function: Stage Description GFR(mL/min/1.73 m(2)) 1 Kidney damage with normal or decreased GFR 90 2 Kidney damage with mild decrease in GFR 60-89 3 Moderate decrease in GFR 30-59 4 Severe decrease in GFR 15-29 5 Kidney failure <15 (or dialysis) 40 PLEASE NOTE NEW REFERENCE RANGE. 41 Anion gap measurement may be of limited value in the presence of any alkalosis, especially in a combined acid base disorder. . 42 A metabolite of Naproxen, O-desmethylnaproxen, has been shown to interfere with the Jendrassik-Lobito method for measuring total bilirubin. Samples from patients who have taken Naproxen have shown spurious elevation in total bilirubin levels. 43 Because ethnic data is not always readily available, this report includes an eGFR for both -Americans and non- Americans. The National Kidney Disease Education Program (NKDEP) does not endorse the use of the MDRD equation for patients that are not between the ages of 18 and 70, are , have extremes of body size, muscle mass, or nutritional status, or are non- or non-. According to the National Kidney Foundation, irrespective of diagnosis, the stage of the disease is based on the level of kidney function: Stage Description GFR(mL/min/1.73 m(2)) 1 Kidney damage with normal or decreased GFR 90 2 Kidney damage with mild decrease in GFR 60-89 3 Moderate decrease in GFR 30-59 4 Severe decrease in GFR 15-29 5 Kidney failure <15 (or dialysis) 44 Anion gap measurement may be of limited value in the presence of any alkalosis, especially in a combined acid base disorder. . 45 A metabolite of Naproxen, O-desmethylnaproxen, has been shown to interfere with the Jendrassik-Lobito method for measuring total bilirubin. Samples from patients who have taken Naproxen have shown spurious elevation in total bilirubin levels. 46 Because ethnic data is not always readily available, this report includes an eGFR for both -Americans and non- Americans. The National Kidney Disease Education Program (NKDEP) does not endorse the use of the MDRD equation for patients that are not between the ages of 18 and 70, are , have extremes of body size, muscle mass, or nutritional status, or are non- or non-. According to the National Kidney Foundation, irrespective of diagnosis, the stage of the disease is based on the level of kidney function: Stage Description GFR(mL/min/1.73 m(2)) 1 Kidney damage with normal or decreased GFR 90 2 Kidney damage with mild decrease in GFR 60-89 3 Moderate decrease in GFR 30-59 4 Severe decrease in GFR 15-29 5 Kidney failure <15 (or dialysis) Procedures Date CPT Code Description Status 10/13/2017 Mammogram Completed 10/13/2017 Bone Mineral Density Test Completed 10/10/2017 00353 EKG Tracing & Interpretation Completed 05/04/2017 66193 Inject/Drain Joint/Bursa Major Completed 04/27/2017 74726 Inject/Drain Joint/Bursa Major Completed 04/20/2017 75452 Inject/Drain Joint/Bursa Major Completed 02/11/2017 62070 Inject/Drain Joint/Bursa Major Completed 08/13/2014 08632 Destruction Of Benign Lesions Any Method 1-14 lesions Completed 09/19/2013 58835 EKG Tracing & Interpretation Completed 09/19/2013 25144 Destruction Of Benign Lesions Any Method 1-14 lesions Completed 03/16/2010 Colonoscopy Completed 01/21/2010 62368 Destruction ALL Benign Or Premalignant Lesion (Other Completed Than [place] 01/21/2010 89268 Dest Lesion Each Addl Lesion 2 Through 14 Each Completed 08/30/2005 Mammogram Completed 03/18/2003 57204 Pulse Doppler & Continuous Wave Completed 03/18/2003 04965 Echocardiogram Completed 03/18/2003 20613 Color Doppler Completed Encounters Type Date Location Provider CPT E/M Dx Office Visit 03/11/2017 [facility] Eugenie Braden M.D. 79152 M25.561 10:45a Of [place] M25.461 M17.31 Office Visit 03/07/2017 3:00p [facility] [place] 93861 M45.7 [facility]25.561 Z79.899 Office Visit 02/28/2017 4:00p [facility] Ninoska Leopoldo, 47359 Z00.00 - Jus Lopez E04.9 Office Visit 02/11/2017 10:00a [facility] Eugenie Braden M.D. 24874 M25.561 C.M.AJustino M25.461 M17.31 Office Visit 10/25/2016 11:40a [facility] Ninoska Leopoldo, 61243 I83.12 - Jus Lopez R03.0 E78.5 Office Visit 08/27/2016 2:00p [facility] Iglesia Diaz CUSHION MAKER HAND 81158 M45.7 [facility] R76.8 M48.07 Z79.899 R21 Office Visit 07/21/2016 4:00p [facility] Vicenta Bashir, 43258 J45.901 - Jus N.P. Office Visit 11/26/2015 3:30p [facility] Iglesia Diaz CUSHION MAKER HAND 93583 M45.7 [facility] R76.8 M75.82 Office Visit 10/24/2015 4:00p [facility] Ninoska Mina, 81008 Z00.00 - Jus Lopez Z12.11 Office Visit 05/27/2015 3:00p [facility] [place] 05009 M45.7 [facility] M48.06 M75.82 Z79.899 Office Visit 02/21/2015 10:00a [facility] [place] 66831 724.02 [facility] 720.0 726.19 995.3 Office Visit 12/11/2014 4:00p [facility] [place] [address] 472.1 [place] 780.79 Office Visit 11/29/2014 2:40p [facility] Tim Mosher 47071 724.02 Of Kary Lopez 720.0 726.19 338.4 Office Visit 10/31/2014 2:00p [facility] [place] [address] 461.8 - [place] Office Visit 08/13/2014 3:00p [facility] Vicenta Bashir, N.P. 52632 078.10 - [place] 110.1 Office Visit 08/13/2014 2:00p [facility] Tim Mosher, 61500 724.02 Of Non Linear Editor M.D. 720.0 726.19 995.3 Office Visit 05/21/2014 2:40p [facility] Tim Mosher, 01822 724.02 Of Non Linear Editor M.D. 720.0 726.19 995.3 Office Visit 03/08/2014 11:40a [facility] Ninoska Leopoldo, 15500 401.1 - [place] M.DJustino 078.12 Office Visit 03/08/2014 10:40a [facility] Tim Mosher, 60101 724.02 Of Non Linear Editor M.D. 720.0 726.19 272.4 721.0 Office Visit 12/28/2013 2:40p [facility] Tim Mosher, 97830 724.02 Of Non Linear Editor M.D. 720.0 683 726.19 Office Visit 10/19/2013 2:20p [facility] Tim Mosher M.D. 03591 720.0 Of Non Linear Editor 724.02 V58.69 683 726.19 Office Visit 09/19/2013 11:40a [facility] - Bri Camarillo M.D., 03245 V70.0 [place] FACP V76.10 V73.89 726.19 078.12 401.1 272.0 268.9 V06.1 Office Visit 08/20/2013 2:40p [facility] Tim Mosher, 70000 724.02 Of Non Linear Editor M.D. 720.0 V58.69 840.4 472.1 726.19 Office Visit 07/20/2013 3:00p [facility] - Flor Luciano M.D. 24328 784.1 [place] Office Visit 10/23/2012 2:40p [facility] Tim Mosher 51290 724.02 Of Non Linear Editor M.D. 720.0 V58.69 Office Visit 08/28/2012 4:20p [facility] Tim Mosher M.D. 11213 720.0 Of Non Linear Editor 724.02 Office Visit 11/24/2011 3:40p [facility] - Bri Camarillo M.D., 68070 726.19 [place] FACP Office Visit 09/23/2011 3:40p Non Linear [facility] - Bri Camarillo M.D., 49288 726.19 [place] FACP Office Visit 08/30/2011 9:15a [facility] Of Jass Herrera M.D. 22512 840.9 C.M.A. Office Visit 07/20/2011 3:00p DO Not Use Bri Camarillo M.D., 37508 726.19 Non Linear Editor-[place] FACP Office Visit 05/24/2011 11:20a DO Not Use Bri Camarillo M.D., 08117 728.85 Non Linear [facility] FACP Office Visit 05/12/2011 4:00p DO Not Use Bri Camarillo M.D., 11240 729.5 Non Linear [facility] FACP Office Visit 03/22/2011 2:00p DO Not Use Vicenta Bashir, 36236 789.02 Non Linear Editor-[place] N.P. Office Visit 01/12/2011 4:20p [facility] Tim Mosher, 66011 287.5 Of Kary Lopez 720.0 721.3 Office Visit 09/11/2010 3:30p DO Not Use Non Linear [facility] Vicenta Varn, 56537 311 N.P. Office Visit 08/11/2010 1:15p DO Not Use Non Linear [facility] Vicenta Varn, 94621 401.1 N.P. 311 461.9 Office Visit 02/09/2010 1:30p DO Not Use Vicenta Varn, 96351 V70.0 Non Linear Editor-[place] N.P. Office Visit 01/21/2010 3:45p DO Not Use Vicenta Varn, 63113 078.10 Non Linear Editor-[place] N.P. 729.5 Office Visit 12/02/2009 4:00p DO Not Use Non Linear [facility] Vicenta Rian, 27527 455.6 N.P. Office Visit 08/19/2009 3:00p DO Not Use Non Linear [facility] Bri Camarillo M.D., 31509 528.2 FACP Office Visit 07/07/2009 4:00p DO Not Use Non Linear [facility] Maine Jones, 09627 461.9 M.D. 462 Office Visit 06/21/2008 2:45p DO Not Use Non Linear [facility] Bri Camarillo, 62779 721.90 M.D., FACP Office Visit 05/17/2008 3:30p DO Not Use Non Linear [facility] Bri Camarillo, 85281 724.2 M.D., FACP 333.1 Office Visit 06/08/2007 11:45a DO Not Use Vicenta Krysten, 43106 787.01 Non Linear Editor-[place] N.P. 558.9 Plan of Care Future Appointment(s):11/09/2017 10:15 am - Eugenie Braden M.D. at [facility].10/27/2017 10:30 am - Andrea Ricks PA-C at [facility]10/27/2017 10:30 am - LATHA Patino at [facility].10/27/2017 10:30 am - Eugenie Braden M.D. at [facility].10/14/2017 - Eugenie Braden M.D.M25.561 Pain in right kneeFollow up:Follow up: 2 weeks after muwzodkD16.31 Unilateral post- traumatic osteoarthritis, right kneeM25.461 Effusion, right knee
--- OUTSIDE RECORDS SUMMARY | 2017-10-27 07:48 | XMS REPORT ---
:1960 External Reference #:[id number] Author [facility] Address [address] [address] Phone [phone] Care Team Providers Name Role Phone Ninoska Mina MD Primary Care Physician Unavailable Payers Type Date Identification Numbers Payment Provider Subscriber Commercial Effective: Policy Number: [id number] BS Facets Arden De Dios 2011 PayID: [id number] [address] [address] DEVEN Vicente [address] Workers Compensation Expires: Policy Number: TST Workers Arden De Dios 2011 [id number] Comp Onset: 2011 PayID: [id number] [address] [place] [address] Medigap Part B Effective: 2010 Policy Number: BS Of [place] Arden De Dios [id number] Expires: 2011 PayID: [id number] [address] [address] DEVEN Vicente [address] Workers Compensation Expires: 2011 Policy Number: TSTWC Arden De Dios [id number] Onset: 2011 PayID: [id number] [address] [place] [id number] Problems Date Description Provider Status Onset: 03/22/2011 Benign essential hypertension Vicenta Bashir N.Carmelina Active Onset: 08/28/2012 Ankylosing spondylitis Tim Mosher M.D. Active Onset: 08/28/2012 Spinal stenosis of lumbar region Tim Mosher M.D. Active Onset: 08/20/2013 Strain of rotator cuff capsule Tim Mosher M.D. Active Onset: 08/20/2013 Chronic pharyngitis Tim Mosher M.D. Active Onset: 03/08/2014 Hyperlipidemia Tim Mosher M.D. Active Onset: 03/08/2014 Cervical spondylosis without Tim Mosher M.D. Active myelopathy Onset: 11/29/2014 Chronic pain syndrome Tim Mosher M.D. Active Onset: 10/24/2015 Anxiety Ninoska Mina M.D. 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, tutoring Cigarette Use Never Smoked Cigarettes ETOH Use Denies alcohol use Smoking Patient has never smoked Exercise Type/Frequency Exercises regularly Allergies, Adverse Reactions, Alerts Date Description Reaction Status Severity Comments 08/11/2010 Biaxin Urticaria active Moderate to Severe 05/21/2014 [place] Anaphylaxis, active Moderate to Urticaria Severe 02/21/2015 Envioromental Allergic asthma active Severe 02/28/2017 Acetaminophen / Codeine active Medications Medication Date Status Form Strength Qnty SIG Indications Ordering Provider Buspirone HCL 10/10 Active Tablets 5mg 60tab 1 by Lewis s mouth Arlene, MARKET RESEARCH EXECUTIVE twice a day Hydrocodone-Aceta 05/04 Active Tablets 5-325mg 90tab 1 tab by Eugenie ayala s mouth Sampson, every 6 M.D. hours as needed for pain Montelukast 02/21 Active Tablets 10mg 90tab 1 tab by T78.40xA Zsofia Sodium s mouth Joe, every ROOFING LABORER day. Epipen 2-Ricardo 05/21 Active Solution 0.3mg/0.3 2apk 995.3 Auto-Inject ML Endo, M.D. Venlafaxine HCL 12/04 Active Caps ER 150mg 60cap take 1 24HR s capsule Cotton, by mouth M.D. twice daily Trazodone HCL 04/15 Active Tablets 50mg 30tab take 1 s tablet by Cotton, mouth M.D. nightly at bedtime as needed Propranolol HCL Active Tablets 20mg 180ta 1 by Ninoska /0000 bs mouth Cotton, twice a M.D. day Clonazepam Active Tablets 0.5mg 60tab Take 1/2 Ninoska /0000 s Tablet By Cotton, Mouth In M.D. [...] Cemill/Bioflavono Active Tablets take 1 Unknown ids / tab daily Calcium 500+D Active Tablets 500-200mg [...] Hx Tablets 875-125mg 20tab one by J20.9 Vicenta /2016 s mouth Varn, N.P. - every 12 07/31 hours ten days Benzonatate 07/21 Hx Capsules 100mg 30cap one by J20.9 Vicenta /2016 s mouth Varn, N.P. - three 08/04 daily as needed for cough Fluticasone 12/13 Hx Suspension 50mcg/Act 16gm 2 sprays 461.8 Lewis Propionate each Arlene, MARKET RESEARCH EXECUTIVE - nostril 05/27 qd weeks Levofloxacin 11/13 Hx Tablets 500mg 10tab one by Lewis s mouth Arlene, MARKET RESEARCH EXECUTIVE - daily for 11/23 10 Augmentin 10/31 Hx Tablets 875-125mg 14tab 1 tablet 461.8 Lewis s by mouth Arlene, MARKET RESEARCH EXECUTIVE - q12 hours 11/10 for days Fluticasone 10/31 Hx Suspension 50mcg/Act 16gm 2 sprays 461.8 Lewis Propionate each Arlene, MARKET RESEARCH EXECUTIVE - nostril 11/12 qd weeks Cheratussin ac 10/31 Hx Syrup 100-10mg/ 118ml take 5-10 461.8 Lewis 5ML millilite Arlene, MARKET RESEARCH EXECUTIVE - rs every 11/06 4-6 hours as needed for cough. Ventolin HFA 10/31 Hx Aerosol 108(90Bas 18uni Inhale 461.8 Lewis e) ts Two Puffs Arlene, MARKET RESEARCH EXECUTIVE - mcg/Act By Mouth 05/27 Times Daily as Needed Ciclopirox 08/13 Hx Solution 8% 6.600 apply to 110.1 ml affected Varn, N.P. - toenails 08/14 surroundi ng skin at bedtime Ergocalciferol 10/03 Hx Capsules [id number] 8caps 1 cap by Bri mouth Rabia, [...] - increase 07/20 to 2 h s /2012 and add 1 prn Venlafaxine HCL 02/04 Hx Caps ER 150mg 60cap Take One Bri ER 24HR s Capsule Rabia, - By Mouth M.D., FACP 08/28 Twice Daily Indomethacin 08/31 Hx Capsules 25mg 360ca take 1 M45.7 ofia ps capsules Joe, - by mouth ROOFING LABORER 04/19 twice daily as needed Hydrocodone/Aceta 10/10 Hx Tablets 5-325mg 30tab 1-2 tabs 728.85 Bri minophen s by mouth Rabia, - every 6 M.D., FACP 08/28 hours needed Cyclobenzaprine 10/ Hx Tablets 5mg 30tab take one 728.85 Bri HCL s at Rabia, - bedtime M.D., FACP 11/23 as needed Indomethacin ER 10 Hx Capsules ER 75mg take one capsule Jessica Mosher - by mouth 08/31 twice a day with food Indomethacin ER 05/24 Hx Capsules ER 75mg take one capsule Jessica Mosher - by mouth 03/01 twice a day with food Metoprolol 05/10 Hx Tablets ER 50mg 90tab Take One Bri Succinate ER 24HR s Tablet By Rabia, - Mouth One M.D., FACP 08/28 Time Daily Hydroxychloroquin 02/09 Hx Tablets 200mg 60tab Take One e Sulfate s Tablet By Jessica Mosher - Mouth 07/20 Daily Sulfasalazine 12/03 Hx Tablets 500mg 60tab 2 po bid s Jessica Mosher - 01/11 Cyclobenzaprine 12/03 Hx Tablets 5mg 30tab 1 bid Bri HCL s Zackary Camarillo M.D., FACP 01/11 Indomethacin 12/03 Hx Capsules 25mg 120ca Take Two ps Capsules Jessica Mosher - By Mouth 05/24 Daily Effexor 11/23 Hx Caps ER 150mg 60cap 1 by 24HR s mouth Rabia, - twice M.D., FACP 03/08 Effexor 08/11 Hx Caps ER 150mg 60cap 1 by Bri 24HR s mouth Rabia, - twice M.D., FACP 11/23 Augmentin 08/11 Hx Tablets 500-125mg Rabia, - M.D., [facility] 08/11 Augmentin 08/11 Hx Tablets 875-125mg 20tab one by s mouth Rabia, - every 12 M.D., [facility] 09/11 hours ten days Veramyst 08/11 Hx Suspension 27.5mcg/S 1Mont 2 sprays pray h each Rabia, - nostril M.D., [facility] 05/12 daily Anamantle HC 05/05 Hx Kit 3-0.5% 20uni Apply Ninoska ts Twice , - Daily For M.D. 08/11 Toprol XL 04/21 Hx Tablets ER 50mg 90tab 1 tablet 24HR s daily Rabia, - M.D., [facility] 05/10 Ivermectin 02/20 Hx 200mcg 5unit take 5 po s in 1 dose Rabia, - on empty M.D., [facility] 08/11 & repeat in 2 weeks Plaquenil Hx Tablets 200mg 60tab 1 tablet Unknown /0000 s twice a - day 02/09 Xyzal Hx Tablets 5mg 30tab 1 tablet Unknown /0000 s daily as - needed 08/28 Effexor XR Hx Caps ER 75mg 30cap 1 capsule Bri 24HR s twice a Rabia, - day M.D., [facility] 08/11 Indomethacin 25MG Hx Capsules Unknown 60cap [...] mouth at - dinner 10/10 Zyrtec Allergy 00/00 Hx Tablets 10mg 1 by Unknown /0000 mouth - every Am 02/28 Tumersaid 00/00 Hx Tablets 1 by Unknown /0000 mouth - daily. 10/10 Medications Administered in Office Medication Date Status Form Strength Qnty SIG Indications Ordering Provider Synvisc Or Administered Injection Eugenie Synvisc-One Berny Braden M.D. Injection 1 MG Synvisc Or Administered Injection Eugenie Synvisc-Darlyn Braden M.D. Injection 1 MG Synvisc Or Administered Injection Eugenie Synvisc-One Berny Braden M.D. Injection 1 MG Depomedrol Administered Injection Eugenie 40MG Berny Braden M.D. Immunizations CPT Code Status Date Vaccine Lot # 25655 Given 05/13/2017 Influenza Virus Vaccine, Quadrivalent, Split, Preservative Free Q2037 Given 08/18/2016 Fluvirin Im 3Yrs And Older 24[address] Given 06/12/2016 Influenza Virus Vaccine, Quadrivalent, Split, Preservative Free 72099 Given 06/12/2016 Influenza Virus Vaccine, Quadrivalent, Split, Preservative Free 28981 Given 06/12/2016 Influenza Virus Vaccine, Quadrivalent, Split, Preservative Free Q2037 Given 05/21/2015 Fluvirin Im 3Yrs And Older Q2037 Given 05/15/2014 Fluvirin Im 3Yrs And Older Q2035 Given 05/15/2014 Afluria Vaccine 21067 Given 09/19/2013 Tdap - Tetanus/Diptheria/Acellular Pertussis [id number] Vital Signs Date Vital Result Comment 10/10/2017 Weight 139.00 lb with shoes Heart [...] Note Order 10/10/2017 EKG results given to [facility] Lipid Profile 02/21/2017 Triglycerides 45 mg/dL 1 (Trig/Chol/HDL) Cholesterol 221 mg/dL 2 HDL Cholesterol 71.7 mg/dL 3 LDL Cholesterol 140 mg/dL 4 CBC Auto Diff 10/05/2016 White Blood Count [...] Egfr Non- 86.2 >60 Egfr 110.9 >60 5 Laboratory test finding 10/05/2016 C Reactive Protein 1.12 mg/L < 5.00 6 Erythrocyte Sed Rate 20 mm/Hr 0-30 CBC [...] Egfr Non- 86.6 >60 Egfr 111.3 >60 7 Laboratory test finding 11/26/2015 C Reactive Protein 1.23 mg/L < 5.00 8 Erythrocyte Sed Rate 18 mm/Hr 0-30 CBC [...] Egfr Non- 85.5 >60 Egfr 109.9 >60 9 Laboratory test finding 05/27/2015 Erythrocyte Sed Rate 17 mm/Hr 0-30 C Reactive Protein < 1.00 mg/L < 5.00 10 Laboratory test finding 12/12/2014 Throat Culture (SEE NOTE) 11 CBC Auto Diff 12/11/2014 White Blood Count [...] Egfr Non- 84.1 >60 Egfr 108.2 >60 12 Laboratory test finding 12/11/2014 C Reactive Protein < 1.00 mg/L &lt ; 5.00 13 Erythrocyte Sed Rate 14 mm/Hr 0-30 Uric Acid 4.3 mg/dL 2.3-6.6 Laboratory test finding 12/11/2014 TSH (Thyroid Stimulating 1.92 IU/mL 0.34-5.60 Horm) Vitamin B12 And Folate 12/11/2014 Vitamin B12 564 pg/mL 180-914 14 Serum Folate 15.37 ng/mL >3.99 Laboratory test finding 12/11/2014 Ferritin 82.3 ng/mL 11-307 CBC Auto Diff 05/27/2014 White Blood Count [...] Blood Cells % 0 Comp Metabolic Panel 05/27/2014 Sodium 139 mmol/L [...] Egfr Non- 87.2 >60 Egfr 112.1 >60 15 Laboratory test finding 05/27/2014 C Reactive Protein < 1.00 mg/L &lt ; 5.00 16 Erythrocyte Sed Rate 18 mm/Hr 0-30 Lipid Profile (Trig/Chol/HDL) 05/27/2014 Triglycerides 43 mg/dL 17 Cholesterol 202 mg/dL 18 HDL Cholesterol 61.4 mg/dL 19 LDL Cholesterol 132 mg/dL 20 CBC Auto Diff 11/23/2013 White Blood Count [...] Protein < 1.00 mg/L &lt ; 5.00 21 Erythrocyte Sed Rate 20 mm/Hr 0-30 Comp [...] Egfr Non- 62.8 >60 Egfr 80.8 >60 22 Immunoglobulins Serum Quant 11/23/2013 Immunoglobulin G 1140 mg/dL 767 - 1590 23 Immunoglobulin M 89 mg/dL 37 - 286 Immunoglobulin A 284 mg/dL 61 - 356 Protein Electrophoresis 11/23/2013 Total Protein(Pep) 6.7 g/dL 6.3 - 7.9 Albumin 3.5 g/dL 3.4-4.7 Alpha-1 Globulin 0.2 g/dL 0.1-0.3 Alpha-2 Globulin 0.8 g/dL 0.6-1.0 Beta Globulin 0.9 g/dL 0.7-1.2 Gamma Globulin 1.3 g/dL 0.6-1.6 Albumin/Globulin Ratio 1.09 Impression See Comment 24 Laboratory test finding 11/23/2013 [place] (Anti-Nuclear AB) Negative Negative Screen Eileen Screen Negative Negative 25 Lipid Profile (Trig/Chol/HDL) 09/27/2013 Triglycerides 77 mg/dL 26 Cholesterol 204 mg/dL 27 HDL Cholesterol 60.3 mg/dL 28 LDL Cholesterol 128 mg/dL 29 Laboratory test finding 09/27/2013 TSH (Thyroid 2.11 IU/mL 0.34-5.60 Stimulating Horm) Vitamin D, 25 Hydroxy 09/27/2013 25-Hydroxy Vitamin D2 <4.0 ng/mL 25-Hydroxy Vitamin D3 27 ng/mL 25-Hydroxy Vitamin D Total 27 ng/mL 30 Laboratory test finding 09/27/2013 Hepatitis C Antibody Nonreactive Nonreactive 31 CBC Auto Diff 08/20/2013 White Blood Count 6.8 10^3/uL 4.8-10.8 Red Blood Count 4.28 10^6/uL 4.0-5.4 Hemoglobin 12.8 g/dL 12.0-16.0 Hematocrit 38 % 35-47 Mean Corpuscular Volume 89 fL 80-97 Mean Corpuscular Hemoglobin 30 pg 27-31 Mean Corpuscular HGB Conc 34 g/dL 31-36 Red Cell Distribution Width 13 % 10.5-15 Platelet Count 167 10^3/uL 150-450 32 Mean Platelet Volume 11 um3 High 7.4-10.4 [...] 08/20/2013 Erythrocyte Sed Rate 14 mm/Hr 0-30 33 C Reactive Protein < 0.5 mg/dL Less [...] Egfr Non- 104.2 >60 Egfr 134.0 >60 34 Laboratory test finding 07/20/2013 Rapid Strep A neg CBC Auto Diff 01/31/2013 White Blood Count 7.2 10^3/uL 4.8-10.8 Red Blood Count 4.27 10^6/uL 4.0-5.4 Hemoglobin 12.9 g/dL 12.0-16.0 Hematocrit 39 % 35-47 Mean Corpuscular Volume 91 fL 80-97 Mean Corpuscular Hemoglobin 30 pg 27-31 Mean Corpuscular HGB Conc 33 g/dL 31-36 Red Cell Distribution Width 13 % 10.5-15 Platelet Count 195 10^3/uL 150-450 35 Mean Platelet Volume 11 um3 High 7.4-10.4 [...] Egfr Non- 75.0 >60 Egfr 96.5 >60 36 Laboratory test finding 01/31/2013 TSH (Thyroid Stimulating 0.98 miu/mL 0.34-5.60 Horm) Laboratory test finding 08/31/2012 Erythrocyte Sed Rate 17 mm/Hr 0-30 C Reactive Protein < 0.5 mg/dL Less than 0.5 Comp Metabolic Panel 08/31/2012 Sodium 138 mmol/L [...] Egfr Non- 65.5 >60 Egfr 84.2 >60 37 Laboratory test finding 03/23/2011 Amylase 42 U/L 20-120 38 Laboratory test finding 03/22/2011 Lipase 33 U/L 22-51 Comp Metabolic Panel 03/22/2011 Sodium 137 mmol/L 135-145 Potassium 4.2 mmol/L 3.5-5.0 Chloride 104 mmol/L 101-111 Co2 (Carbon Dioxide) 27.0 mmol/L 22-32 Anion Gap 6.0 mmol/L 2-11 39 Glucose 91 mg/dL 70-100 BUN 13 mg/dL 6-24 Creatinine 0.80 mg/dL 0.50-1.40 One Over Creatinine 1.20 BUN/Creatinine Ratio 16.3 8-20 Calcium 9.2 mg/dL 8.1-9.9 Total Protein 6.4 GM/DL 6.2-8.1 Albumin 4.0 GM/DL 3.6-5.4 Globulin 2.4 GM/DL 2-4 Albumin/Globulin Ratio 1.7 1-3 Bilirubin Total 0.5 mg/dL 0.4-1.5 40 Alkaline Phosphatase 59 U/L 30-110 Alt (SGPT) 23 U/L 14-54 Ast (Sgot) 23 U/L 12-42 eGFR Non- 75.6 > 60 eGFR 97.3 > 60 41 CBC With Manual Diff 03/22/2011 White Blood [...] Absolute Neutrophil Count 5.3 RBC Morphology NORMAL Comp Metabolic Panel 02/11/2011 Sodium 138 mmol/L 135-145 Potassium 4.3 mmol/L 3.5-5.0 Chloride 102 mmol/L 101-111 Co2 (Carbon Dioxide) 30.0 mmol/L 22-32 Anion Gap 6.0 mmol/L 2-11 42 Glucose 84 mg/dL 70-100 BUN 14 mg/dL 6-24 Creatinine 0.80 mg/dL 0.50-1.40 One Over Creatinine 1.20 BUN/Creatinine Ratio 17.5 8-20 Calcium 9.8 mg/dL 8.1-9.9 Total Protein 6.1 GM/DL Low 6.2-8.1 Albumin 4.1 GM/DL 3.6-5.4 Globulin 2.0 GM/DL 2-4 Albumin/Globulin Ratio 2.1 1-3 Bilirubin Total 0.5 mg/dL 0.4-1.5 43 Alkaline Phosphatase 51 U/L 30-110 Alt (SGPT) 23 U/L 14-54 Ast (Sgot) 22 U/L 12-42 eGFR Non- 75.6 > 60 eGFR 97.3 > 60 44 Laboratory test finding 02/11/2011 Erythrocyte Sed Rate 9 MM/HR 0-30 CBC With Manual Diff 02/11/2011 White Blood [...] Count 4.6 RBC Morphology NORMAL Laboratory test 02/11/2011 C Reactive Protein < 0.5 mg/dL Less Than 0.5 finding 1 Desirable <150 Borderline high 150-199 High 200-499 Very High >500 2 Desirable <200 Borderline high 200-239 High >239 3 Low <40 Desirable: 40-60 High: >60 4 Desirable: <100 mg/dL Near Optimal: 100-129 mg/dL Borderline High: 130-159 mg/dL High: 160-189 mg/dL Very High: >189 mg/dL 5 Because ethnic data is not always readily [...] 15-29 5 Kidney failure <15 (or dialysis) 6 Acute inflammation: >10.00 7 Because ethnic data is not always [...] (or dialysis) 10 Acute inflammation: >10.00 11 RUN DATE: 12/14/14 [facility] LAB LIVE PAGE 1 RUN TIME: [address] [place] [id number] Specimen Inquiry Name: ARDEN DE DIOS : [address]: Lewis Jacobs NP Acct: [id number] Unit: [id number] AGE: 54 Location: [facility] Re12/12/14 SEX: F Status: REG REF SPEC: [id number] RAFI: 12/12/[address]: Lewis Jacobs NP REQ: [id number] RECD: 12/12/14 STATUS: COMP _ SOURCE: THROAT SPDESC: ORDERED: Throat Culture QUERIES: Provider Requisition # [id number] Procedure Result Verified Site Throat Culture Final 12/14/14- 810 ML Organism 1 NORMAL MARIEL Quantity 3+ * ML - MAIN LAB (PSC1) . END OF REPORT * ML=Testing performed at Main Lab DEPARTMENT OF PATHOLOGY, [address] [place] [address] Gwyn Palmer M.D. Director [facility] # [id number] 12 Because ethnic data is not always readily [...] 15-29 5 Kidney failure <15 (or dialysis) 13 Acute inflammation: >10.00 14 Normal Range 180 to 914 Indeterminate Range 145 to 180 Deficient Range <145 15 Because ethnic data is not always readily [...] 15-29 5 Kidney failure <15 (or dialysis) 16 Acute inflammation: >10.00 17 Desirable <150 Borderline high 150-199 High 200-499 Very High >500 18 Desirable <200 Borderline high 200-239 High >239 19 Low <40 Desirable: 40-60 High: >60 20 Desirable <100 Near Optimal 100-129 Borderline high 130-159 High 160-189 Very High >189 21 Acute inflammation: >10.00 22 Because ethnic data is not always readily [...] 15-29 5 Kidney failure <15 (or dialysis) 23 Test Performed by: [place] [address] Painter And Paperhanger Apprentice: Shahbaz Meade III, M.D. 24 RESULT: No apparent monoclonal protein on serum electrophoresis. Test Performed by: [place] [address] Painter And Paperhanger Apprentice: Shahbaz Meade III, M.D. 25 The above EILEEN screen is designed for the detection of antibodies to extractable nuclear antigen (EILEEN) in human serum. It is a combination test for the detection of antibodies to INSPECTOR GENERAL, Sm, SS-A (Ro), and SS-B (La) nuclear antigens. 26 Desirable <150 Borderline high 150-199 High 200-499 Very High >500 27 Desirable <200 Borderline high 200-239 High >239 28 Low <40 Desirable: 40-60 High: >60 29 Desirable <100 Near Optimal 100-129 Borderline high 130-159 High 160-189 Very High >189 30 -- REFERENCE VALUE -- 25-HYDROXY D TOTAL (D2+D3) Optimum levels in the healthy population are 20-50, patients with bone disease may benefit from higher levels within this range. Test Performed by: [facility] [place] - [address] [address] Painter And Paperhanger Apprentice: Shahbaz Meade III, M.D. 31 NON-FASTING 32 CONFIRMED BY ESTIMATE ON BLOOD SMEAR 33 @08/20/13 1851: Slide Review added. RFLXG=SR. 34 Because ethnic data is not always readily [...] 15-29 5 Kidney failure <15 (or dialysis) 35 Platelet count confirmed by smear estimate. 36 Because ethnic data is not always [...] 5 Kidney failure <15 (or dialysis) 37 Because ethnic data is not always readily [...] 15-29 5 Kidney failure <15 (or dialysis) 38 PLEASE NOTE NEW REFERENCE RANGE. 39 Anion gap measurement may be of limited value in the presence of any alkalosis, especially in a combined acid base disorder. . 40 A metabolite of Naproxen, O-desmethylnaproxen, has been shown to interfere with the [place] method for measuring total bilirubin. Samples from patients who have taken Naproxen have shown spurious elevation in total bilirubin levels. 41 Because ethnic data is not always readily [...] 15-29 5 Kidney failure <15 (or dialysis) 42 Anion gap measurement may be of limited value in the presence of any alkalosis, especially in a combined acid base disorder. . 43 A metabolite of Naproxen, O-desmethylnaproxen, has been shown to interfere with the [place] method for measuring total bilirubin. Samples from patients who have taken Naproxen have shown spurious elevation in total bilirubin levels. 44 Because ethnic data is not always readily [...] dialysis) Procedures Date CPT Code Description Status 05/04/201724520 Inject/Drain Joint/Bursa Major Completed 04/27/2017 06798 Inject/Drain Joint/Bursa Major Completed 04/20/2017 44905 Inject/Drain Joint/Bursa Major Completed 02/11/2017 56761 Inject/Drain Joint/Bursa Major Completed 08/13/2014 78397 Destruction Of Benign Lesions Any Method 1-14 lesions Completed 09/19/2013 51221 EKG Tracing & Interpretation Completed 09/19/2013 76641 Destruction Of Benign Lesions Any Method 1-14 lesions Completed 03/16/2010 Colonoscopy Completed 01/21/2010 89441 Dest Lesion Each Addl Lesion 2 Through 14 Each Completed 01/21/2010 71529 Destruction ALL Benign Or Premalignant Lesion (Other Completed Than [place] 08/30/2005 Mammogram Completed 03/18/2003 57360 Color Doppler Completed 03/18/2003 09630 Pulse Doppler & Continuous Wave Completed 03/18/2003 30930 Echocardiogram Completed Encounters Type Date Location Provider CPT E/M Dx Office Visit 03/11/2017 [facility] Eugenie Braden M.D. 49719 M25.561 10:45a Of Brandin M25.461 M17.31 Office Visit 03/07/2017 3:00p [facility] 26083 M45.7 SkylerArrowisaac M25.561 Z79.899 Office Visit 02/28/2017 4:00p [facility] Internal Medicine Ninoska Mina, 46056 Z00.00 - Jus Lopez E04.9 Office Visit 02/11/2017 10:00a [facility] Of Eugenie Braden M.D. 47401 M25.561 Brandin M25.461 M17.31 Office Visit 10/25/2016 11:40a [facility] Internal Medicine Ninoska Mina, 11259 I83.12 - Jus Lopez R03.0 E78.5 Office Visit 08/27/2016 2:00p [facility] 59223 M45.7 [facility] R76.8 M48.07 Z79.899 R21 Office Visit 07/21/2016 4:00p [facility] Internal Medicine Vicenta Bashir, 12830 J45.901 - Jus N.P. Office Visit 11/26/2015 3:30p [facility] Ig[facility]ia DiazSANCHO 33838 M45.7 Of [facility] R76.8 M75.82 Office Visit 10/24/2015 4:00p [facility] Internal Medicine Ninoska Mina, 29183 Z00.00 - Jus Lopez Z12.11 Office Visit 05/27/2015 3:00p [facility] 71406 M45.7 [facility] M48.06 M75.82 Z79.899 Office Visit 02/21/2015 10:00a [facility] Diaz[place]ANCHO 15044 724.02 Of [facility] 720.0 726.19 995.3 Office Visit 12/11/2014 4:00p [facility] [place] [address] 472.1 [place] 780.79 Office Visit 11/29/2014 2:40p Rhe[facility]ology Services Tim Mosher 08244 724.02 Of Kary Lopez 720.0 726.19 338.4 Office Visit 10/31/2014 2:00p [facility] [place] [address] 461.8 - [place] Office Visit 08/13/2014 3:00p [facility] Internal Medicine Vicenta Bashir N.P. 40903 078.10 - [place] 110.1 Office Visit 08/13/2014 2:00p [facility] Services Tim Mosher, 40643 724.02 Of Kary M.D. 720.0 726.19 995.3 Office Visit 05/21/2014 2:40p [facility]ology Services Tim Mosher, 06344 724.02 Of Bait Painter MJustinoDJustino 720.0 726.19 995.3 Office Visit 03/08/2014 11:40a [facility] Internal Medicine Ninoska Mina 10702 401.1 - Jus Lopez 078.12 Office Visit 03/08/2014 10:40a [facility] Services Tim Mosher, 97738 724.02 Of Kary Gutiérrez.DJustino 720.0 726.19 272.4 721.0 Office Visit 12/28/2013 2:40p [facility] Services Tim Mosher, 05944 724.02 Of Kary M.DJustino 720.0 683 726.19 Office Visit 10/19/2013 2:20p [facility] Services Tim Mosher M.D. 82631 720.0 Of [facility] 724.02 V58.69 683 726.19 Office Visit 09/19/2013 11:40a [facility] Internal Medicine - Bri Camarillo M.D., 77429 V70.0 [place] FACP V76.10 V73.89 726.19 078.12 401.1 272.0 268.9 V06.1 Office Visit 08/20/2013 2:40p [facility] Services Tim Mosher, 82751 724.02 Of Kary M.DJustino 720.0 V58.69 840.4 472.1 726.19 Office Visit 07/20/2013 3:00p [facility] Internal Medicine - Flor Luciano M.D. 23652 784.1 [place] Office Visit 10/23/2012 2:40p [facility] Services Tim Mosher, 89991 724.02 Of Kary Lopez 720.0 V58.69 Office Visit 08/28/2012 4:20p [facility] Services Tim Mosher M.D. 07377 720.0 Of Bait Painter 724.02 Office Visit 11/24/2011 3:40p [facility] Internal Medicine - Bri Camarillo M.D., 79159 726.19 [place] FACP Office Visit 09/23/2011 3:40p [facility] Internal Medicine - Bri Camarillo M.D., 18497 726.19 [place] FACP Office Visit 08/30/2011 9:15a [facility] Of Jass Herrera M.D. 15528 840.9 C.M.A. Office Visit 07/20/2011 3:00p DO Not Use Bri Camarillo M.D., 74755 726.19 B[facility] Painter-[place] FACP Office Visit 05/24/2011 11:20a DO Not Use Bri Camarillo M.D., 79048 728.85 Bait Painter-[place] FACP Office Visit 05/12/2011 4:00p DO Not Use Bri Camarillo M.D., 38744 729.5 [facility] Pain[facility]-[place] FACP Office Visit 03/22/2011 2:00p DO Not Use Vicenta Varn, 73769 789.02 Bait Painter-[place] N.P. Office Visit 01/12/2011 4:20p Rheumatology Services Tim [place], [address] 287.5 Of Bait Painter Jessica 720.0 721.3 Office Visit 09/11/2010 3:30p DO Not Use [facility] Vicenta Varn, 13191 311 N.P. Office Visit 08/11/2010 1:15p DO Not Use [employer] Vicenta Varn, 12453 401.1 N.P. 311 461.9 Office Visit 02/09/2010 1:30p DO Not Use Vicenta Varn, 46953 V70.0 [employer] N.P. Office Visit 01/21/2010 3:45p DO Not Use Vicenta Varn, 68583 078.10 [employer] N.P. 729.5 Office Visit 12/02/2009 4:00p DO Not Use [facility] Vicenta Varn, 28236 455.6 N.P. Office Visit 08/19/2009 3:00p DO Not Use [facility] Bri Camarillo M.D., 14900 528.2 FACP Office Visit 07/07/2009 4:00p DO Not Use [facility] Maine Jones, 99226 461.9 M.D. 462 Office Visit 06/21/2008 2:45p DO Not Use [employer] [facility] Bri Camarillo, 22250 721.90 M.D., FACP Office Visit 05/17/2008 3:30p DO Not Use [employer] Bri Camarillo, 95453 724.2 M.D., FACP 333.1 Office Visit 06/08/2007 11:45a DO Not Use Vicenta Bashir, 51783 787.01 [employer] N.P. 558.9 Plan of Care Future Appointment(s):10/27/2017 10:30 am - Andrea Ricks PA-C at [facility].10/27/2017 10:30 am - LATHA Patino at [facility].10/14/2017 8:30 am - Eugenie Braden M.D. at [facility].10/27/2017 10:30 am - Eugenie Braden M.D. at [facility]10/10/2017 - Lewis Jacobs, NPZ01.818 Encounter for other preprocedural examinationNew Orders:EKGComments:As long as your labs are normal I do not see any contraindications to your surgery.You should avoid aspirin, NSAIDs (ibuprofen, Motrin, aleve) and supplements 7 days prior to the procedure.M25.561 Pain in right kneeJ45.901 Unspecified asthma with (acute) ncfterlfnsvoB79.9 Anxiety disorder, unspecifiedComments:I have prescribed the Buspar that we discussed. Start taking that once daily for three days and thenincrease to twice daily. You can increase by 2.5mg (1/2 tablet) twice daily every three days until you are taking 10mg twice daily.Follow up:3 months and PRN
--- OUTSIDE RECORDS SUMMARY | 2017-10-27 07:48 | XMS REPORT ---
:1960 External Reference #:[id number] Author Organization [facility] Address [address] [place] [address] Phone [phone] Care Team Providers Name Role Phone Ninoska Mina MD Primary Care Physician Unavailable Payers Type Date Identification Numbers Payment Provider Subscriber Commercial Effective: Policy Number: [id number] /BS Of ANNMARIE Andree De Dios 2012 PayID: [id number] [address] [address] [place] [address] Problems Date Description Provider Status Onset: 11/24/2016 Chronic allergic conjunctivitis Corrie Frye M.D. Active Onset: 11/24/2016 Uncomplicated moderate persistent asthma Corrie Frye M.D. Active Onset: 05/26/2016 Moderate persistent asthma with (acute) Corrie Frye M.D. Active exacerbation Onset: 11/19/2015 Uncomplicated moderate persistent asthma Corrie Frye M.D. Active Onset: 01/01/2015 Body Mass Index 25.0-25.9 Adult Corrie Frye M.D. Active Onset: 01/01/2015 Allergic rhinitis Corrie Frye M.D. Active Onset: 01/01/2015 Extrinsic asthma without status Corrie Frye M.D. Active asthmaticus Onset: 01/01/2015 Allergic rhinitis due to pollen Corrie Frye M.D. Active Family History Date Family Member(s) Problem(s) Comments General Seasonal Allergies General Diabetes General Heart Disease General Hypertension General sinus disorders General Stroke TIA"s Father Seasonal Allergies Father Heart Disease Father sinus disorders Father due to Autoimmune, Heart () Complications Mother Stroke Onset: () Mother Skin Disease/ rash Skin Cancer Mother Seasonal Allergies Mother Diabetes Mother Migraine Mother sinus disorders Social History Type Date Description Comments Education Highest Level Completed, Master's Degree Marital Status Legal Status: Lives With Spouse Home Environment Cotton Mattress Cover Home Environment Lives in a 1 level wood frame home Home Environment 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 Environment Has a window air conditioner Home Environment Stairs are present Home Environment The basement is dry Home Environment Finished Basement Home Environment Unfinished Basement Home Environment Uses a dehumidifier Home Environment Cotton Comforter Home Environment Mattress is 10 years old Home Environment Mattress is encased in an allergy proof case Home Environment Rubber Mattress Home Environment There are draperies in the home Home Environment The home is not manohar Home Environment The floors are tile Home Environment The floors are wood Home Environment Uses baseboard heating Home Environment [place] Home Environment Water Source: City Home Environment House built in early Smoke-Free Home is smoke-free Smoke-Free Work is smoke-free Pets 1 dog Pets Animals sleep in bedroom Occupation Teacher [employer], [employer] Has been inside Work Status Full-Time Employment Work Environment School Hobbies Gardening Hobbies Hiking Hobbies Reading Hobbies Golfing ETOH Use Denies alcohol use Smoking Patient has never smoked Recreational Drug Use Denies Drug Use Parental Marital Status Parents Parental Involvement Mother and father are very involved Allergies, Adverse Reactions, Alerts Date Description Reaction Status Severity Comments 01/01/2015 Ceclor Urticaria active Medications Medication Date Status Form Strength Qnty SIG Indications Ordering Provider Desloratadine 11/24/ Active Tablets 5mg 30tab Dissolve J30.2 Maryana 2016 Dispers s 1 Tablet Dussing, In Mouth PROCESS IMPROVEMENT CONSULTANT-C Daily Epipen 2-Ricardo 11/18/ Active Solution 0.3mg/0.3M 2unit use as 2015 Auto-Inject L s directed VOLODYMYR Farley Dulera 11/18/ Active Aerosol 200-5mcg/A 13uni Inhale 2015 ct ts Puffs By Ronnie Frye In M.D. The Morning, And In The Evening Pazeo 03/26/ Active Solution 0.7% 2.5un instill 1 J45.40 2014 its drop into Robbins-Jam both eyes constantin, once PROCESS IMPROVEMENT CONSULTANT-C daily as needed Montelukast 01/03/ Active Tablets 10mg 30tab Take One L50.9 Corrie Sodium 2015 s Tablet By McRenettarross, Mouth M.D. Nightly At Bedtime Clonazepam / Active Tablets 0.5mg take 08/16 Unknown 0000 tablet by mouth twice a day then 1 every evening Max 2/Day Effexor XR / Active Caps ER 24HR 150mg bid Unknown 0000 Trazodone HCL / Active Tablets 50mg bedtime Unknown 0000 Toprol XL / Active Tablets ER 20mg bid Unknown 0000 24HR Ventolin HFA / Active Aerosol 108(90Base 1unit 2 every 4 Tammie 0000 ) mcg/Act s hours as Robbins-Jam needed constantin, PROCESS IMPROVEMENT CONSULTANT-C Dymista / Active Suspension 137-50mcg/ 23uni use 1 Act ts spray in Robbins-Jam each constantin, nostril PROCESS IMPROVEMENT CONSULTANT-C twice daily Calcium/Mag/Zin / Active one tab Unknown c/D3 0000 daily Stress B / Active Tablets one tab Unknown Complex 0000 daily Ilene-C / Active one daily Unknown 0000 L-Lysine / Active Tablets 1000mg 1-2 tabs Unknown 0000 daily Hair/Skin/Nails 00/ Active Tablets one tab Unknown /Biotin 0000 daily Aspirin / Active Chewtabs 81mg one daily Unknown 0000 Oxybutynin / Active Tablets 5mg one tab Unknown Chloride 0000 daily Botox / Active Solution Rec every Unknown 0000 three months Stool Softener / Active Capsules 250mg prn Unknown 0000 Medications Administered in Office Medication Date Status Form Strength Qnty SIG Indications Ordering Provider Celestone/Devante Administered Injection Corrie melone 015 Melva, [id number] M.D. cc Injection Administered Injection Brad Lozano M.D. Immunizations CPT Code Status Date Vaccine Lot # 80141 Given Unknown Influenza Vaccine 54368 Given Unknown Influenza Vaccine 99160 Given Unknown Influenza Vaccine 20179 Given Unknown Influenza Vaccine 82467 Given Unknown Influenza Vaccine Vital Signs Date Vital Result Comment 09/28/2017 Height 64 inches 5'4" Weight 135.00 lb verbalized Weight in kg's 61.236 Respiratory Rate 18 /min Heart Rate 94 /min O2 % BldC Oximetry 97 % BP Systolic 120 mmHg BP Diastolic 86 mmHg Asthma Control Test 22 BMI (Body Mass Index) 23.2 kg/m2 07/21/2017 Height 64 inches 5'4" Weight 136.00 lb Weight in kg's 61.690 Respiratory Rate 20 /min Heart Rate 84 /min Body Temperature 99.3 F O2 % BldC Oximetry 97 % BP Systolic 137 mmHg BP Diastolic 91 mmHg Asthma Control Test 14 BMI (Body Mass Index) 23.3 kg/m2 03/23/2017 Height 64 inches 5'4" Weight 136.00 lb Weight in kg's 61.690 Respiratory Rate 16 /min Heart Rate 62 /min O2 % BldC Oximetry 97 % BP Systolic 129 mmHg BP Diastolic 95 mmHg Asthma Control Test 22 BMI (Body Mass Index) 23.3 kg/m2 11/24/2016 Height 64 inches 5'4" Weight 138.00 lb Weight in kg's 62.597 Respiratory Rate 20 /min Heart Rate 83 /min O2 % BldC Oximetry 96 % BP Systolic 137 mmHg BP Diastolic 94 mmHg Asthma Control Test 20 BMI (Body Mass Index) 23.7 kg/m2 05/26/2016 Height 64 inches 5'4" Weight 139.00 lb Weight in kg's 63.050 Respiratory Rate 18 /min Heart Rate 89 /min O2 % BldC Oximetry 95 % BP Systolic 135 mmHg BP Diastolic 86 mmHg Asthma Control Test 20 BMI (Body Mass Index) 23.9 kg/m2 11/19/2015 Height 64 inches 5'4" Weight 143.00 lb Weight in kg's 64.865 Respiratory Rate 18 /min Heart Rate 86 /min O2 % BldC Oximetry 96 % BP Systolic 134 mmHg BP Diastolic 87 mmHg Asthma Control Test 22 BMI (Body Mass Index) 24.5 kg/m2 03/26/2015 Height 64 inches 5'4" Weight 138.00 lb pt stated Weight in kg's 62.597 Respiratory Rate 20 /min Heart Rate 103 /min O2 % BldC Oximetry 96 % BP Systolic 126 mmHg BP Diastolic 96 mmHg Asthma Control Test 23 BMI (Body Mass Index) 23.7 kg/m2 01/24/2015 Height 64 inches 5'4" Weight 146.00 lb Weight in kg's 66.226 Respiratory Rate 18 /min Heart Rate 83 /min O2 % BldC Oximetry 98 % BP Systolic 118 mmHg BP Diastolic 70 mmHg Asthma Control Test 22 BMI (Body Mass Index) 25.1 kg/m2 01/03/2015 Height 64 inches 5'4" Weight 146.00 lb Weight in kg's 66.226 Respiratory Rate 16 /min Heart Rate 77 /min O2 % BldC Oximetry 97 % BP Systolic 126 mmHg BP Diastolic 80 mmHg BMI (Body Mass Index) 25.1 kg/m2 01/01/2015 Height 64 inches 5'4" Weight 146.00 lb Weight in kg's 66.226 Respiratory Rate 18 /min Heart Rate 74 /min O2 % BldC Oximetry 98 % BP Systolic 118 mmHg BP Diastolic 76 mmHg BMI (Body Mass Index) 25.1 kg/m2 Results Test Date Test Result H/L Range Note Xray 06/03/2016 Chest Xray, 2 views <pending> Procedures Date CPT Code Description Status 09/28/2017 24111 Pre PFT Completed 07/21/2017 68945 Ippb Completed 03/23/2017 60481 Ippb Completed 03/23/2017 11997 Pre PFT Completed 11/24/2016 98346 Pre PFT Completed 05/26/2016 39743 Ippb Completed 05/26/2016 54243 Pre PFT Completed 11/19/2015 58774 Pre PFT Completed 03/26/2015 58537 Pre PFT Completed 01/24/2015 70752 Pre PFT Completed 01/01/2015 84522 Pulmonary Function Test Completed 06/11/2011 48175 Pulmonary Function Test Completed 03/17/2007 48103 Injection Completed 03/16/2007 75479 Extract 1-10 Completed 03/03/2007 09177 Skin Test Scratch # Of Units ____ Completed Encounters Type Date Location Provider CPT E/M Dx Office Visit 07/21/2017 2:20p VOLODYMYR Herrera 79913 J06.9 J30.2 J30.89 J45.40 Office Visit 03/23/2017 3:20p Andrés Frye M.D. 69137 J30.2 J30.89 J45.40 H10.45 Office Visit 11/24/2016 3:40p Andrés Frye M.D. 40666 J30.2 J30.89 J45.40 H10.45 Z68.23 Office Visit 05/26/2016 3:20p Andrés Frye M.D. 57748 J45.41 J30.2 J30.89 Z23 Z68.23 Office Visit 11/19/2015 3:40p Andrés Frye M.D. 53496 J45.40 J30.2 J30.89 Z68.24 Office Visit 03/26/2015 11:00a Andrés Frye M.D. 18022 493.00 493.00 477.8 477.8 V85.1 V85.1 Office Visit 01/24/2015 3:40p Andrés Schumacher, PH.D, [facility] 06535 493.00 477.8 477.0 708.9 V85.21 Office Visit 01/03/2015 1:20p Andrés Schumacher, PH.D, [facility] 98958 708.9 477.0 477.8 493.00 V85.21 Office Visit 01/01/2015 2:20p Andrés Frye M.D. 16726 477.0 493.00 477.8 V85.21 Office Visit 01/02/2010 4:20p Andrés Ching M.D. 11068 477.0 477.8 Office Visit 03/22/2007 4:00p Andrés Lozano M.D. 79588 477.0 477.8 Office Visit 03/10/2007 3:45p Andrés Ching M.D. 76450 477.0 477.8 Office Visit 02/10/2007 10:00a Andrés Ching M.D. 92017 477.0 477.8 Office Visit 11/16/2006 2:45p Andrés Lozano M.D. 63093 477.0 477.8 Office Visit 08/13/2005 3:15p Andrés Ching M.D. 41094 477.0 477.8 Plan of Care 09/28/2017 - Corrie Frye M.D.J45.40 Moderate persistent asthma, xnrnsvwilrctvR69.89 Other allergic ugimwnczB08.2 Other seasonal allergic iygmpcigC66.45 Other chronic allergic conjunctivitisFollow up:January 2018, but call next week to report how youRecommendations:Refrain from wearing perfumes/ scented colognes while visiting our office. Continue to monitor your symptoms If you continue to have more sinus and chest symptoms/congestion, you may need an antibiotics call the office to check in Increase the Dulera 200/5 2 puffs twice daily through your surgery Continue all other medications including the eye drops, montelukast, Dymista, and desloratdine
[2017-10-27] MEDS ORDERED: fentaNYL* 50 MCG/ML 2 ML VIAL (100 MCG VIAL) ONE ×3 (08:47→20:50)
[2017-10-27] MEDS ORDERED: Ondansetron INJ* 2 MG/ML VIAL ONE (08:48)
[2017-10-27] MEDS ORDERED: Phenylephrine INJ* 10 MG/ML 1 ML VIAL (10 MG) ONE (08:48)
[2017-10-27] MEDS ORDERED: Midazolam* 1 MG/ML 10 ML VIAL (10 MG) ONE ×3 (08:48→20:50)
[2017-10-27] MEDS ORDERED: Propofol* 10 MG/ML 20 ML BTL IV PUSH ONE (08:48)
[2017-10-27] MEDS ORDERED: ROPIVACAINE 5 MG/ML 30 ML BTL (0.5%) ONE (08:49)
[2017-10-27] MEDS ORDERED: Levalbuterol 0.63MG/3ML NEB* UNIT OF USE INH ONE ×2 (09:16→09:17)
[2017-10-27] MEDS ORDERED: Bupivacaine 0.5% SDV PF* 10-30ML VIAL ONE (09:31)
[2017-10-27] MEDS ORDERED: Polyethylene Glycol 3350* 17 GM PACKET PO PRN (09:40)
[2017-10-27] MEDS ORDERED: Magnesium Hydroxide LIQ* 30 ML UDC PO PRN (09:40)
[2017-10-27] MEDS ORDERED: oxyCODONE/Acetamin 5/325 MG* TAB PO PRN ×2 (09:40→11:32)
[2017-10-27] MEDS ORDERED: Acetaminophen TAB* 325 MG PO PRN (09:40)
[2017-10-27] MEDS ORDERED: diPHENhydraMINE IV* 50 MG/ML 1 ml VIAL (BENADRYL) IV PRN (09:40)
[2017-10-27] MEDS ORDERED: Bisacodyl SUPP* 10 MG SUPP PR PRN (09:40)
[2017-10-27] MEDS ORDERED: Cyclobenzaprine TAB* 10 MG PO PRN (09:40)
[2017-10-27] MEDS ORDERED: Ondansetron TAB* 4 MG PO PRN (09:40)
[2017-10-27] MEDS ORDERED: Albuterol HFA INHALER* 8 gm MDI INH PRN (09:48)
[2017-10-27] MEDS ORDERED: Atracurium* 10 MG/ML 10 ML VIAL ONE (10:04)
[2017-10-27] MEDS ORDERED: fentaNYL* 50 MCG/ML 2 ML VIAL (100 MCG VIAL) IV PRN (11:32)
[2017-10-27] MEDS ORDERED: Ondansetron INJ* 2 MG/ML VIAL IV PRN (11:32)
[2017-10-27] MEDS ORDERED: DiMENhydriNATE IV* 50 MG/ML VIAL IV PUSH PRN (11:32)
[2017-10-27] MEDS ORDERED: Naloxone* 0.4 MG/ML 1 ML VIAL IV PRN (11:32)
[2017-10-27] MEDS ORDERED: HYDROmorphone INJ* 1 MG/ML CARPUJECT SYRINGE IV PRN (11:32)
--- NOTE | 2017-10-27 13:13 | RAD ---
INDICATION: Status post total right knee replacement surgery. TECHNIQUE: 2 views of the right lower leg were obtained. FINDINGS: The patient is status post total right knee replacement surgery. The bones and prostheses are in normal alignment. No fracture is seen. There is a surgical drain adjacent to the anterior distal femur. IMPRESSION: STATUS POST TOTAL RIGHT KNEE REPLACEMENT SURGERY.
--- NOTE | 2017-10-27 14:14 | RAD ---
Indication: Immediate postop exam following RIGHT total knee replacement. Comparison: October 14, 2017 Technique: Portable AP and cross table lateral views RIGHT knee. Report: Status post total knee replacement. Anterior surgical drain in place. Previous surgical anchors from ACL reconstruction remaining at the femur and tibia. Post-op fluid and gas is seen in the joint space and anterior subcutaneous tissues. Alignment is anatomic. No periprosthetic fracture evident. IMPRESSION: Unremarkable immediate postoperative appearance following RIGHT knee replacement.
[2017-10-27] MEDS ORDERED: oxyCODONE/Acetamin 5/325 MG* TAB ONE (15:24)
[2017-10-27] MEDS: oxyCODONE/Acetamin 5/325 MG* TAB PO PRN ×2 (15:26→22:00)
[2017-10-27] MEDS ORDERED: Warfarin TAB(*) 6 MG PO ONE (17:00)
[2017-10-27] MEDS: clonazePAM TAB(*) 0.5 MG PO SCH ×2 (17:00→22:00)
[2017-10-27] MEDS: Morphine INJ* 2 MG/ML 1 ML CARPUJECT IV PRN ×2 (17:08→19:30)
[2017-10-27] MEDS: ceFAZolin 1 GM in Dextrose (*) 1 GM/50 ML BAG IVPB SCH (17:33)
[2017-10-27] MEDS: oxyCODONE TAB* 5 MG TAB PO PRN (17:33)
[2017-10-27] MEDS ORDERED: Glucagon* 1 MG VIAL IV ONE (18:12)
--- NOTE | 2017-10-27 19:24 | PN ---
Hospitalist Progress Note Date of Service: 10/27/17 [place] [facility] [place] piece of chicken stuck in her esophagus. She is able to talk and is in no respiratory distress. Pt is unable to swallow her saliva. Called Dr. Johnson and he will be in to do an emergent endo to remove the chicken. Pt states that this has happened once prior and she received medication at urgent care and was then able to swallow the food that was stuck. ~ 0, Pt received IV Glucogon. ~ 0. Pt still feels like the chicken is stuck, with effort she is now able to swallow saliva.
[2017-10-27] MEDS: Magnesium Hydroxide LIQ* 30 ML UDC PO SCH (21:57)
[2017-10-27] MEDS: Oxybutynin TAB* 5 MG PO SCH (21:57)
[2017-10-27] MEDS: Propranolol TAB* 20 MG PO SCH (21:57)
[2017-10-27] MEDS: Docusate CAP* 100 MG PO SCH (21:59)
[2017-10-27] MEDS: traZODone TAB* 50 MG TAB PO SCH (22:00)
[2017-10-27] MEDS: Venlafaxine EXT RELEASE CAP* 75 MG PO SCH (22:00)
--- NOTE | 2017-10-27 23:32 | CONS ---
CC: Dr. Ninoska Mina; Dr. Eugenie Braden* CONSULTATION REPORT: DATE OF CONSULT: 10/27/17 PRIMARY CARE PROVIDER: Dr. Ninoska Mina. ATTENDING PHYSICIAN: Dr. Barbra Fallon (dictated by Kirsten Law NP). REASON FOR CONSULT: Co-medical management in a patient with a history of hypertension, anxiety, and chronic pain syndrome. HISTORY OF PRESENT ILLNESS: Ms. De Dios is a 57-year-old female with past medical history significant for hypertension, anxiety, cervical dystonia, chronic pain syndrome, ankylosing spondylitis, hyperlipidemia, and asthma, who presented to the hospital today to undergo an elective right total knee arthroplasty with Dr. Braden. Leading up to the procedure today, the patient states that she has been in her usual state of health and has been feeling well. She denies any fever, chills, chest pain, shortness of breath, nausea, vomiting, or diarrhea. Postoperatively, the patient is doing well. She states that her pain is controlled. Hospitalists were asked to assist with the co-medical management of this patient during her hospitalization. PAST MEDICAL HISTORY: 1. Hypertension. 2. Anxiety. 3. Cervical dystonia. 4. Chronic pain syndrome. 5. Ankylosing spondylitis. 6. Hyperlipidemia. 7. Asthma. PAST SURGICAL HISTORY: 1. Status post tubal ligation. 2. Status post hysterectomy and bilateral salpingo-oophorectomy. 3. Status post saphenous vein stripping. 4. Status post 5 right knee arthroscopies. 5. Status post ACL repair. 6. Status post left axillary lymphadenectomy. 7. Status post laser eye surgery. HOME MEDICATIONS: 1. Singulair 10 mg oral daily. 2. EpiPen 0.3 mg subcu as needed for anaphylaxis. 3. Trazodone 50 mg oral at bedtime as needed for sleep. 4. Propranolol 20 mg oral twice daily. 5. Clonazepam 0.25 mg twice daily and 0.5 mg at bedtime. 6. Dymista 137/50 mcg 2 sprays to both nares twice daily. 7. Lilli Allergy 1 tablet oral daily. 8. Dulera 200/5 one puff inhalation twice daily. 9. Pazeo 0.7% one drop to both eyes daily. 10. Ventolin HFA 1 to 2 puffs inhalation twice daily as needed for shortness of breath. 11. Oxybutynin 5 mg oral daily. 12. Hair, Skin, and Nails vitamin 5000 mcg oral daily. 13. Calcium with vitamin D 500/200 one tablet oral twice daily. 14. Calcium/bioflavonoids 1 tablet oral daily. 15. Effexor 150 mg oral twice daily. 16. B-complex 1 tablet oral daily. 17. Fish oil 1000 mg oral daily. 18. BuSpar 5 mg oral twice daily. 19. Lysine 500 to 1000 mg oral every evening. 20. Colace 200 mg oral daily as needed for constipation. 21. Aspirin 81 mg oral daily. ALLERGIES: BIAXIN, CORN, ENVIRONMENTAL, CODEINE. FAMILY HISTORY: The patient's father had a history of heart disease, mother with a history of diabetes and cerebrovascular accident. SOCIAL HISTORY: The patient denies tobacco, alcohol, or recreational drug use. She is a retired after school coordinator. Her , Osiris De Dios, will be her surrogate decision maker in the event she is unable to make decisions for herself. REVIEW OF SYSTEMS: I performed 14-point review of systems. All the pertinent positives and negatives are mentioned in the history of present illness. The remaining review of systems is negative. PHYSICAL EXAM: Vital Signs: Temperature 98.4, heart rate 113, respiratory rate 16, O2 sat 97% on 2 L nasal cannula, blood pressure 99/60. Appearance: The patient is alert, pleasant, appears to be in no acute distress. HEENT: Normocephalic, atraumatic. Pupils are equal and reactive to light. Extraocular movements are intact. Neck is supple. Respiratory: There is no accessory muscle use. Lungs are clear to auscultation bilaterally. Cardiovascular: Regular rate and rhythm. S1, S2 present. There are no murmurs , rubs, or gallops heard. Abdomen: Soft, nontender, and nondistended. Bowel sounds present x4. Extremities: No lower extremity edema. DP and PT pulses are 2+ and symmetric. Musculoskeletal: There is no clubbing or cyanosis noted. Skin: There is dressing to the right knee that is clean, dry, and intact with a Hemovac intact draining bloody drainage. Neurovascular: Cranial nerves II through XII are grossly intact. The patient moves all extremities. Psychological: The patient is calm and cooperative. DIAGNOSTIC STUDIES/LAB DATA: Preoperative labs from 10/10/17, weight blood cell count 7.4, hemoglobin 14.1, hematocrit 42, platelet count 177. Sodium 136 , potassium 4.1, chloride 99, CO2 30, BUN 14, creatinine 0.72, glucose 90. Urinalysis negative on 10/13/17. IMPRESSION: Ms. De Dios is a 57-year-old female with past medical history significant for hypertension, anxiety, cervical dystonia, chronic pain syndrome , ankylosing spondylitis, hyperlipidemia, and asthma, who presented to the hospital today for an elective right total knee arthroplasty with Dr. Eugenie Braden. Hospitalists were asked to assist with co-medical management in this patient during her hospitalization. ASSESSMENT/PLAN: 1. Status post right total knee arthroplasty postop day, management will be per Orthopedic Surgery. The patient will be placed on pain medication regimen in addition to a bowel regimen. Her H and H will be trended. She will have physical therapy and occupational therapy starting in the morning. She will have the urinary catheter removed in the morning. 2. Hypertension. The patient's blood pressures have been on the soft side. She is not currently on any antihypertensives. We will continue to monitor her blood pressure. 3. History of asthma. The patient will be continued on her Singulair, Dulera, Lilli, and albuterol inhaler as needed. 4. Anxiety. The patient will be continued on her home propranolol, clonazepam , venlafaxine, and BuSpar. 5. Cervical dystonia. Continue clonazepam. 5. Fluid, electrolytes, and nutrition. The patient will be on a clear liquid advanced diet as tolerated. 6. DVT prophylaxis. The patient will have Lovenox bridge to warfarin per Orthopedic Surgery in addition to SCDs. 7. Code status. Full code. 8. Disposition. Inpatient with disposition per Orthopedic Surgery. TIME SPENT: Time for this consultation was approximately 60 minutes, greater than half of that was spent with the patient and her discussing medications, past medical history, and the events leading up to her arrival today. Reviewed by VOLODYMYR ROMEO 10/29/17 1735 [id number]/[facility] #: [id number] ABILIO
--- NOTE | 2017-10-27 23:32 | CONS ---
CONSULTATION REPORT: DATE OF CONSULTATION: 10/27/17. REQUESTING PHYSICIAN: Kirsten Agosto NP INDICATION: Dysphagia. NARRATIVE: Ms. De Dios is a 57-year-old female who underwent a right total knee arthroplasty today. She has a history of dysphagia. The dysphagia is to solids usually. She had one episode where she had to go to [facility]. It appears that they gave her Glucagon and the foreign body sensation resolved. The patient was eating her hospital chicken tonight and it felt like a piece of the hospital chicken became stuck in her esophagus. She tried to swallow saliva, but was unable to. The hospitalist PA did give her some Glucagon and by the time I came into see her, she was able to tolerate some liquids; however , she still states it feels like there is something obstructing her esophagus. She can swallow her saliva. She does have a history of asthma and allergies. She states that this has happened to her numerous times in the past; however, it has always passed on it own. She has mild upper chest discomfort below her sternum. She denies any difficulty breathing at this time. PAST MEDICAL HISTORY: Hypertension, cervical dystonia, anxiety, chronic pain, ankylosing spondylitis, hyperlipidemia and asthma. PAST SURGICAL HISTORY: Status post right knee arthroplasty today, tubal ligation, hysterectomy, right knee arthroscopy x5, laser eye surgery. MEDICATIONS: Upon admission include: 1. Oxybutynin. 2. Ventolin. 3. Dulera. 4. Lilli. 5. Dymista. 6. Clonazepam. 7. Propranolol. 8. Trazodone. 9. EpiPen. 10. Montelukast. ALLERGIES: BIAXIN. FAMILY HISTORY: Significant for coronary artery disease, stroke, Castleman's syndrome, schizophrenia, diabetes, aortic aneurysm. SOCIAL HISTORY: She denies any tobacco or IV drug use. No alcohol. REVIEW OF SYSTEMS: 12 systems were reviewed, other than that mentioned in the HPI were unremarkable. PHYSICAL EXAM: Vital Signs: Temperature is 98.2, her blood pressure is 103/68 , pulse is 96, respiratory rate of 18, O2 sat is 97% on 2 L. General: Well- appearing female, lying flat in bed. Alert, oriented, pleasant, fluent. HEENT : Mucous membranes are moist without lesions, ulcers or exudate. Neck is supple. Trachea is midline. Head is normocephalic, atraumatic. Lymphs: No supraclavicular, cervical lymphadenopathy. Heart: Regular rate and rhythm. No murmurs, rubs or gallops. Lungs: Expiratory wheeze. Okay air movement. Abdomen: Positive bowel sounds, soft, nontender and nondistended. No hepatosplenomegaly, masses, rebound or guarding. Skin: Warm and dry. Right knee has dressing applied to it. It is clean, dry and intact. LABORATORY DATA: None. She also currently is on warfarin. ASSESSMENT AND PLAN: A 57-year-old female with long history of dysphagia to solids, who developed a sensation of foreign body obstruction after eating her hospital chicken tonight. Currently, she can swallow some liquids. I am not sure if the foreign body persists or not. I have my doubt; however, the patient feels like it is still lodged in there. Given this fact, I think we should perform an upper endoscopy tonight. I do wonder if she could have eosinophilic esophagitis. I can take biopsies for this eosinophilic esophagitis ; however, if the patient has stricture or ring given her heparin, I cannot do anything about it at that time. [id number]/[facility] #: [id number] MTDD
[2017-10-28] MEDS: ceFAZolin 1 GM in Dextrose (*) 1 GM/50 ML BAG IVPB SCH ×2 (01:49→08:36)
[2017-10-28] MEDS: oxyCODONE TAB* 5 MG TAB PO PRN ×4 (01:54→21:33)
[2017-10-28 06:18] LABS: Hematocrit 29 % (35-47); Hemoglobin 9.6 g/dl (12.0-16.0); Mean Platelet Volume 10 um3 (7.4-10.4); Platelet Count 112 10^3/ul (150-450)
[2017-10-28] MEDS: oxyCODONE/Acetamin 5/325 MG* TAB PO PRN ×3 (06:20→17:28)
[2017-10-28 06:31] LABS: EGFR Non-African American 97.1 (>60)
[2017-10-28] MEDS: Docusate CAP* 100 MG PO SCH ×2 (08:35→21:32)
[2017-10-28] MEDS: clonazePAM TAB(*) 0.5 MG PO SCH ×3 (08:35→21:34)
[2017-10-28] MEDS: Venlafaxine EXT RELEASE CAP* 75 MG PO SCH ×2 (08:35→21:32)
[2017-10-28] MEDS: Propranolol TAB* 20 MG PO SCH ×2 (08:36→21:32)
[2017-10-28] MEDS: Magnesium Hydroxide LIQ* 30 ML UDC PO SCH ×2 (08:36→21:32)
--- NOTE | 2017-10-28 09:21 | PN ---
Progress Note - Progress Note Date of Service: 10/28/17 SOAP: Subjective: 57 y/o female s/p Right TKA by Dr. Braden 10/27. Overnight, patient complained of "something stuck in throat", seen by GI--> scoped. no throat pain currently , rec's to chew food well, patient understands. VSS, afebrile overnight. c/o pain, feeling like "poo". Objective: General- Well appearing, NAD, AO resting in bed, at bedside MSK- RLE- DF/PF +, PT 2+, negative homans sign dressing intact, no induration/ erythema around dressing site. Assessment: Stable 57 y/o female s/p Right TKA by Dr. Braden 10/27. Plan: - DVT prophylaxis- lovenox, coumadin 6mg tonight. - Continue PT/ OT - Follow up with Dr. Braden within 10-14 days - H&H - stable - post-op IV ABX -- running - LIkely d/c home tuesday Vital Signs Temp 98.9 F 10/28/17 07:59 Pulse 88 10/28/17 07:59 Resp 16 10/28/17 08:35 BP 149/41 10/28/17 07:59 Pulse Ox 94 10/28/17 07:59 Intake & Output 10/27/17 10/28/17 10/28/17 18:59 06:59 18:59 Intake Total 3450 1447 Output Total 1650 2600 Balance 1800 -1153 Weight 62.686 kg Intake: IV Fluids 3450 1087 ABX - CEFAZOLIN 100 LR 3400 987 NS 50ML, Cefazolin 2G 50 Oral 360 Output: Coy 1400 2600 Estimated Blood Loss 250 Other: # Bowel Movements 0 Acetaminophen (Tylenol Tab*) 650 mg PO Q4H PRN PRN Reason: PAIN OR TEMPERATURE Albuterol (Ventolin Hfa Inhaler*) 1 puff INH BID PRN PRN Reason: SOB/WHEEZING Bisacodyl (Dulcolax Supp*) 10 mg IN DAILY PRN PRN Reason: constipation Clonazepam (Klonopin Tab(*)) 0.25 mg PO 0900,1700 MICHELLE Last Admin: 10/28/17 08:35 Dose: 0.25 mg Clonazepam (Klonopin Tab(*)) 0.5 mg PO 2100 [facility] Last Admin: 10/27/17 22:00 Dose: 0.5 mg Cyclobenzaprine HCl (Flexeril Tab*) 10 mg PO TID PRN PRN Reason: SPASMS Diphenhydramine HCl (Benadryl Iv*) 12.5 mg IV Q6H PRN PRN Reason: PRURITIS Docusate Sodium (Colace Cap*) 100 mg PO BID [facility] Last Admin: 10/28/17 08:35 Dose: 100 mg Enoxaparin Sodium (Lovenox(*)) 30 mg SUBCUT Q24H [facility] Cefazolin Sodium/Dextrose (Kefzol 1 Gm In Dextrose Duplex (*)) 1 gm in 50 mls @ 200 mls/hr IVPB Q8H [facility] Stop: 10/28/17 10:14 Last Admin: 10/28/17 08:36 Dose: 200 mls/hr Lactated Ringer's (Lactated Ringers 1000 Ml Bag*) 1,000 mls @ 100 mls/hr IV PER RATE [facility] Last Admin: 10/28/17 03:25 Dose: 100 mls/hr Lactulose (Lactulose*) 30 ml PO Q6H PRN PRN Reason: constipation Magnesium Hydroxide (Milk Of Magnesia Liq*) 30 ml PO BID [facility] Last Admin: 10/28/17 08:36 Dose: 30 ml Magnesium Hydroxide (Milk Of Magnesia Liq*) 30 ml PO Q6H PRN PRN Reason: constipation Morphine Sulfate (Morphine Inj (Syringe)*) 2 mg IV Q2H PRN PRN Reason: PAIN Last Admin: 10/27/17 19:30 Dose: 2 mg Ondansetron HCl (Zofran Inj*) 4 mg IV Q6H PRN PRN Reason: nausea Ondansetron HCl (Zofran Tab*) 4 mg PO Q6H PRN PRN Reason: NAUSEA Oxybutynin Chloride (Ditropan Tab*) 5 mg PO BEDTIME [facility] Last Admin: 10/27/17 21:57 Dose: Not Given Oxycodone HCl (Roxycodone Tab*) 10 mg PO Q4H PRN PRN Reason: SEVERE PAIN Last Admin: 10/28/17 08:35 Dose: 10 mg Oxycodone/Acetaminophen (Percocet 5/325 Tab*) 2 tab PO Q4H PRN PRN Reason: PAIN Last Admin: 10/28/17 06:20 Dose: 2 tab Oxycodone/Acetaminophen (Percocet 5/325 Tab*) 1 tab PO Q4H PRN PRN Reason: PAIN Pharmacy Profile Note (Coumadin Daily Reminder*) 1 note FOLLOW UP 1700 [facility] Last Admin: 10/27/17 16:59 Dose: 1 note Polyethylene Glycol/Electrolytes (Miralax*) 17 gm PO DAILY PRN PRN Reason: Constipation Propranolol HCl (Inderal Tab*) 20 mg PO BID [facility] Last Admin: 10/28/17 08:36 Dose: 20 mg Trazodone HCl (Desyrel Tab*) 50 mg PO BEDTIME [facility] Last Admin: 10/27/17 22:00 Dose: 50 mg Venlafaxine HCl (Effexor Xr Cap*) 150 mg PO BID [facility] Last Admin: 10/28/17 08:35 Dose: 150 mg Warfarin Sodium (Coumadin Tab(*)) 6 mg PO ONCE@1700 [facility] PRN Reason: Protocol Stop: 10/28/17 17:01
[2017-10-28] MEDS ORDERED: Enoxaparin(*) 30 MG/0.3 ML SYR SUBCUT SCH (12:00)
--- NOTE | 2017-10-28 15:28 | OP ---
OPERATIVE REPORT: DATE OF OPERATION: 10/27/17 DATE OF : 58 SURGEON: Eugenie Braden MD. RN POST PARTUM: LATHA Barkley. Ms. Myles did help throughout the procedure with preparations of the leg, wound retraction, manipu lation of the knee and wound closure. ANESTHESIOLOGIST: Dr. Alvarado. ANESTHESIA: Spinal. 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 POST-OP DIAGNOSIS: Severe posttraumatic osteoarthritis of the right knee joint. OPERATIVE PROCEDURE: Right total knee arthroplasty. TOURNIQUET TIME: 51 minutes. COMPLICATIONS: None. SPECIMEN: Multiple culture swabs sent to Pathology and Microbiology and multiple pieces of bone and cartilage from the right knee joint sent to Pathology. HARDWARE USED: This is a cemented, [employer] total knee arthroplasty hardware. Two packages o f Simplex bone cement. For the femur, a right, size 5, narrow posterior stabilized Legion Oxinium fe moral component. For the tibia, a size 3 right, tibial base plate Shelbi II. For the insert, a 9-m m posterior stabilized articular insert size 3-4 and for the patella, a 32-mm 7.56 and 3-peg all poly patella. BRIEF HISTORY/INDICATION: Ms. De Dios is a 57-year-old female with a long history of right knee pain. She had ACL reconstruction in the past. Over the years, she developed posttraumatic arthritis in the knee, which was tricompartmental and failed conservative treatment with antiinflammatories, pain med ications, intraarticular injections, physical therapy as well as brace wear. Her radiographs showed [id number] contact with advanced arthritis which did appear to be posttraumatic. Due to continued pain and decreased quality of life, the patient elected to undergo right total knee arthroplasty. In formed consent was obtained from the patient. She understood the risk of surgery included, but were not limited to bleeding, infection, damage to nearby structures, continued pain, need for further niki lavonne, intraoperative fracture, nerve palsy, hardware failure or loosening, knee stiffness, loss of mo tion, stroke, heart attack, blood clot and . She wished to proceed. INTRAOPERATIVE FINDINGS: Intraoperatively, the patient had tricompartmental advanced arthritis and f ull thickness loss of cartilage. She did not have any evidence of infection or purulence. Her inter ference screws were not encountered during the procedure. She did have valgus deformity of 10 degree s that was corrected to anatomic valgus at the end of the procedure. DESCRIPTION OF PROCEDURE: Ms. De Dios was identified in the preanesthesia unit. Her right lower extrem ity was marked as the correct operative side. Informed consent was signed and placed in the chart. The patient was taken to the operating room and placed under spinal anesthesia. A Coy catheter was placed. Tourniquet was placed on the right thigh. Right lower extremity was prepped and draped in the usual sterile fashion. Preop time-out was made to correctly identify the patient's side and site . Appropriate perioperative antibiotics were given within 1 hour of incision. Tourniquet was inflated and total tourniquet time for this procedure was 51 minutes. The patient's p rior medial incision was used and extended 2 to 3 cm proximally. A 10 blade was used to make the inc ision and carried down to the extensor mechanism. A new 10 blade was used to make a standard medial parapatellar arthrotomy. The patella was subluxed laterally. Electrocautery was used to elevate the soft tissue off the superomedial tibia to the mid sagittal plane. The knee was flexed up. The anter ior horn of the lateral meniscus was sharply released. There was no ACL. A drill was used to enter the distal femur. Intramedullary distal femoral cutting guide was pinned on the distal femur. Dista l femoral condylar, lateral condylar hypoplasia was noted and accounted for. Oscillating saw was use d to make the distal cut. Next, the external rotation guide was pinned on the distal femur and the d istal femur was sized to a size 5. A size 5 multi-cutting jig was pinned on the distal femur. Oscil lating saw was used to make the appropriate 4 chamfer cuts. The PCL was completely released. Tibia was subluxed anteriorly. The intramedullary tibial cutting g uide was used to make the proximal tibial cut with the oscillating saw. This cut was made perpendicu lar to the mechanical axis of the tibia. The tibial interference screw was not encountered during th is part of the procedure. The knee was brought out into full extension. The spacer block had good f it with some tightness laterally. A 15-blade was used to perform pie crusting technique of the later al ligaments and medial lateral ligamentous balancing was improved. Flexion and extension gaps were well balanced. The knee was flexed up. Lamina coke drawer was placed both medially and laterally. Any remaining menisc us was carefully removed using electrocautery. Any posterior osteophytes were removed with a curved osteotome. Tibial tray and drop agusto were placed and confirmed a satisfactory tibial cut. A size 5 right narrow femoral trial was chosen. This was impacted on to the distal femur and had exc ellent fit. The box for the posterior stabilized implant was prepared using a box osteotome. A size 3 tibial tray trial with a 9-mm insert trial was chosen. The knee was taken through a range of rochelle on and had full extension to 130 degrees of flexion with very satisfactory patellofemoral tracking. The patella was everted. 7 mm of patellar bone and cartilage was carefully removed using an oscillat ing saw. The patella was sized to a size 32. Three-peg holes were drilled through the size 32 guide . A size 32 patella with a 7.5 thickness trial was placed and the knee was taken through a range of motion. There was satisfactory patellofemoral tracking. All trials were carefully removed. The tibia was subluxed anteriorly and sized to a size 3. Proxima l tibia was prepared using a size 3 keel punch. All bony cut surfaces were copiously irrigated with sterile saline and dried. Final implants were cemented into place starting with the tibia followed b y the femur and last the patella. A 9-mm insert trial was placed and the knee was brought out into f ull extension. Tourniquet was turned down at 51 minutes. The knee was copiously irrigated with ster ile saline. Once the cement had fully cured, the insert trial was removed. Excess cement from around the capsule and hardware was carefully removed. Final insert chosen was a 9- mm posterior stabilized articular insert, size 3-4. This was locked into position on the tibial tray. Stability of the insert was eze cked and rechecked and noted to be stable. The knee was once again copiously irrigated with sterile saline. The extensor mechanism was closed o denise a medium Hemovac drain using interrupted #1 Vicryl. The rest of the incision was closed in a lay ered fashion using 0 and 2-0 Vicryl. The skin was closed using running 3-0 nylon suture. Sterile Xe roform, 4x4s and Webril were used to cover the incision. Elkin wrap and cold pack were placed over thi s. The patient's anesthesia was reversed without difficulty. She was taken to the PACU in stable condit ion. Intended weightbearing will be weightbearing as tolerated. Intended DVT prophylaxis will be Co umadin with a Lovenox bridge. [id number]/[facility] #: [id number]
--- NOTE | 2017-10-28 16:02 | PRO ---
CC: Dr. Mina PROCEDURE REPORT: DATE OF PROCEDURE: 10/27/17 PROCEDURE: EGD. INDICATION: Esophageal foreign body sensation, emergently performed in the hospital. REFERRING PHYSICIAN: Dr. Mina. MEDICATIONS GIVEN: 1. 25 mcg IV fentanyl. 2. 3 mg IV Versed. PROCEDURE IN DETAIL: After the EGD procedure, including the risks, benefits, and alternatives, not l imited to perforation, surgery and/or were explained to Mrs. De Dios, written consent was then obt ained. IV medication was given and a bite- block was placed between the teeth. An Olympus pediatric gastroscope was then inserted into the patient's mouth, advanced down the esophagus, into the stomac h, and into the proximal duodenum. In the esophagus at the GE junction, the Z-line was intact. No e rosive esophagitis, stricture or ring was seen. No foreign body was seen. I did take biopsies for e osinophilic esophagitis. The scope was advanced through the GE junction and into the body of the sto mach. Retroflex and forward views revealed a large amount of water. The scope was advanced through the pylorus into the duodenal bulb. The scope was then withdrawn from the patient. She tolerated the procedure well and was returned to her hospital room in stable condition. IMPRESSION: 1. Complete upper endoscopy into the duodenum with biopsies. 2. No esophageal foreign body, biopsies for eosinophilic esophagitis. 3. I will follow up on all the biopsies. [id number]/[facility] #: [id number]
--- NOTE | 2017-10-28 16:05 | PN ---
Subjective Date of Service: 10/28/17 Interval History: Patient seen and examined at bedside. Denies fever, chills, lightheadedness or dizziness, shortness of breath, chest discomfort, N/V/D. Pt states that she is having a lot of pain in her left hip. She also continues to have some discomfort , stating that it still felt like she had food in her esophagus. She underwent an emergent EGD last night and no food was found in her esophagus. Per Pt and her she has an episode of food getting stuck about once a month. Family History: Unchanged from Admission Social History: Unchanged from Admission Past Medical History: Unchanged from Admission Objective Active Medications: Acetaminophen (Tylenol Tab*) 650 mg PO Q4H PRN Reason: PAIN OR TEMPERATURE Albuterol (Ventolin Hfa Inhaler*) 1 puff INH BID PRN Reason: SOB/WHEEZING Bisacodyl (Dulcolax Supp*) 10 mg [place] DAILY PRN Reason: constipation Clonazepam (Klonopin Tab(*)) 0.25 mg PO 0900,1700 [facility] Clonazepam (Klonopin Tab(*)) 0.5 mg PO 2100 [facility] Cyclobenzaprine HCl (Flexeril Tab*) 10 mg PO TID PRN Reason: SPASMS Diphenhydramine HCl (Benadryl Iv*) 12.5 mg IV Q6H PRN Reason: PRURITIS Docusate Sodium (Colace Cap*) 100 mg PO BID [facility] Enoxaparin Sodium (Lovenox(*)) 30 mg SUBCUT Q24H [facility] Lactated Ringer's (Lactated Ringers 1000 Ml Bag*) 1,000 mls @ 100 mls/hr IV PER RATE [facility] Lactulose (Lactulose*) 30 ml PO Q6H PRN Reason: constipation Magnesium Hydroxide (Milk Of Magnesia Liq*) 30 ml PO BID [facility] Magnesium Hydroxide (Milk Of Magnesia Liq*) 30 ml PO Q6H PRN Reason: constipation Morphine Sulfate (Morphine Inj (Syringe)*) 2 mg IV Q2H PRN Reason: PAIN Ondansetron HCl (Zofran Inj*) 4 mg IV Q6H PRN Reason: nausea Ondansetron HCl (Zofran Tab*) 4 mg PO Q6H PRN Reason: NAUSEA Oxybutynin Chloride (Ditropan Tab*) 5 mg PO BEDTIME [facility] Oxycodone HCl (Roxycodone Tab*) 10 mg PO Q4H PRN Reason: SEVERE PAIN Oxycodone/Acetaminophen (Percocet 5/325 Tab*) 2 tab PO Q4H PRN Reason: PAIN Oxycodone/Acetaminophen (Percocet 5/325 Tab*) 1 tab PO Q4H PRN Reason: PAIN Pharmacy Profile Note (Coumadin Daily Reminder*) 1 note FOLLOW UP 1700 [facility] Polyethylene Glycol/Electrolytes (Miralax*) 17 gm PO DAILY PRN Reason: Constipation Propranolol HCl (Inderal Tab*) 20 mg PO BID [facility] Trazodone HCl (Desyrel Tab*) 50 mg PO BEDTIME [facility] Venlafaxine HCl (Effexor Xr Cap*) 150 mg PO BID [facility] Warfarin Sodium (Coumadin Tab(*)) 6 mg PO ONCE@1700 [facility] Stop: 10/28/17 17:01 Vital Signs - 8 hr 10/28/17 10/28/17 10/28/17 08:00 08:35 10:49 Temperature Pulse Rate Respiratory 16 16 14 Rate Blood Pressure (mmHg) O2 Sat by Pulse Oximetry 10/28/17 10/28/17 10/28/17 11:10 11:52 12:26 Temperature 98.8 F Pulse Rate 83 Respiratory 16 16 16 Rate Blood Pressure 114/69 (mmHg) O2 Sat by Pulse 98 Oximetry 10/28/17 14:24 Temperature Pulse Rate Respiratory 16 Rate Blood Pressure (mmHg) O2 Sat by Pulse Oximetry Oxygen Devices in Use Now: None Appearance: NAD, laying in bed Ears/Nose/Mouth/Throat: Mucous Membranes Moist Respiratory: Symmetrical Chest Expansion and Respiratory Effort, Clear to Auscultation Cardiovascular: NL Sounds; No Murmurs; No JVD, RRR Abdominal: NL Sounds; No Tenderness; No Distention Extremities: No Edema Skin: No Rash or Ulcers, - - Dressing to right knee clean, dry and intact Neurological: Alert and Oriented x 3, NL Muscle Strength and Tone Lines/Tubes/Other Access: Clean, Dry and Intact Peripheral IV - site benign Nutrition: Taking PO's Result Diagrams: 10/28/17 06:03 10/28/17 06:03 Microbiology and Other Data: Microbiology 10/27/17 10:32 Anaerobic Culture - Preliminary Wound - Knee Right No Growth Day 1 Gram Stain - Final Wound Culture - Preliminary No Growth Day 1 Assess/Plan/Problems-Billing Assessment: Ms. De Dios is a 57 yo female with PMH significant for HTN, anxiety, cervical dystonia, chronic pain syndrome, ankylosing spondylitis, HLD, asthma, and osteoarthritis who presented to the hospital for an elective right total knee arthroplasy with Dr. Braden. - Patient Problems (1) Status post total right knee replacement Code(s): Z96.651 - PRESENCE OF RIGHT ARTIFICIAL KNEE JOINT SNOMED Code(s): 7836554681274 Comment: - POD #1, management per ortho - HH down from baseline, continue to trend - Continue OT, PT, pain management, and bowel regimen (2) Anemia Code(s): D64.9 - ANEMIA, UNSPECIFIED SNOMED Code(s): 343969322 Comment: - Acute blood loss anemia secondary to surgery - Continue to trend HH (3) Dysphagia Code(s): R13.10 - DYSPHAGIA, UNSPECIFIED SNOMED Code(s): 91084131 Comment: - S/P EGD last evening - GI consult, input appreciated - Biopsy pending (4) HTN (hypertension) Code(s): I10 - ESSENTIAL (PRIMARY) HYPERTENSION SNOMED Code(s): 14584663 Comment: - SBP 80-140's - Continue to hold lisinopril, will resume when able (5) History of asthma Code(s): Z87.09 - PERSONAL HISTORY OF OTHER DISEASES OF THE RESPIRATORY SYSTEM SNOMED Code(s): 432911036 Comment: - No signs of acute exacerbation - Continue singulair, dulera, rubina, and albuterol MDI PRN (6) Anxiety Code(s): F41.9 - ANXIETY DISORDER, UNSPECIFIED SNOMED Code(s): 43333745 Comment: - Continue propranolol, clonazepam, venlafaxine, and BuSpar (7) Cervical dystonia Code(s): G24.3 - SPASMODIC TORTICOLLIS SNOMED Code(s): 053509526 Comment: - Continue clonazepam (8) DVT prophylaxis Code(s): ELE5435 - SNOMED Code(s): 344521608 Comment: - Lovenox bridge to warfarin (9) Full code status Code(s): Z78.9 - OTHER SPECIFIED HEALTH STATUS SNOMED Code(s): 417128500 Status and Disposition: Inpatient. Disposition per Ortho. Thank you for this consultation, we will continue to follow along.
[2017-10-28] MEDS ORDERED: Warfarin TAB(*) 6 MG PO ONE (17:00)
[2017-10-28] MEDS: Ondansetron INJ* 2 MG/ML VIAL IV PRN (19:23)
[2017-10-28] MEDS: Oxybutynin TAB* 5 MG PO SCH (21:32)
[2017-10-28] MEDS: traZODone TAB* 50 MG TAB PO SCH (21:53)
[2017-10-29] MEDS: oxyCODONE/Acetamin 5/325 MG* TAB PO PRN ×4 (01:56→20:40)
[2017-10-29] MEDS: oxyCODONE TAB* 5 MG TAB PO PRN (04:08)
[2017-10-29 05:44] LABS: Hematocrit 32 % (35-47); Hemoglobin 10.9 g/dl (12.0-16.0); Mean Platelet Volume 10 um3 (7.4-10.4); Platelet Count 120 10^3/ul (150-450)
[2017-10-29 05:49] LABS: INR 1.74 (0.77-1.02)
[2017-10-29] MEDS: Mometasone/Formoter 200/5 MDI INH SCH ×2 (08:04→19:34)
[2017-10-29] MEDS: Docusate CAP* 100 MG PO SCH ×2 (08:07→20:42)
[2017-10-29] MEDS: Venlafaxine EXT RELEASE CAP* 75 MG PO SCH ×2 (08:07→20:42)
[2017-10-29] MEDS: Propranolol TAB* 20 MG PO SCH ×2 (08:07→20:41)
[2017-10-29] MEDS: clonazePAM TAB(*) 0.5 MG PO SCH ×3 (08:08→20:42)
[2017-10-29] MEDS: Magnesium Hydroxide LIQ* 30 ML UDC PO SCH ×2 (08:17→20:43)
--- NOTE | 2017-10-29 10:53 | PN ---
Subjective Date of Service: 10/29/17 Interval History: Patient seen and examined at bedside. Denies fever, chills, shortness of breath , chest discomfort, N/V/D. Pt reports lightheadedness when up and "feeling sleepy" today. She has not been up with physical therapy yet. She reports that the sensation of something in her esophagus has resolved. Family History: Unchanged from Admission Social History: Unchanged from Admission Past Medical History: Unchanged from Admission Objective Active Medications: Acetaminophen (Tylenol Tab*) 650 mg PO Q4H PRN Reason: PAIN OR TEMPERATURE Albuterol (Ventolin Hfa Inhaler*) 1 puff INH BID PRN Reason: SOB/WHEEZING Azelastine/Fluticasone (Dymista(Nf)) 1 spray BOTH NARES BID MICHELLE Bisacodyl (Dulcolax Supp*) 10 mg [place] DAILY PRN Reason: constipation Clonazepam (Klonopin Tab(*)) 0.25 mg PO 0900,1700 MICHELLE Clonazepam (Klonopin Tab(*)) 0.5 mg PO 2100 MICHELLE Cyclobenzaprine HCl (Flexeril Tab*) 10 mg PO TID PRN Reason: SPASMS Diphenhydramine HCl (Benadryl Iv*) 12.5 mg IV Q6H PRN Reason: PRURITIS Docusate Sodium (Colace Cap*) 100 mg PO BID MICHELLE Lactated Ringer's (Lactated Ringers 1000 Ml Bag*) 1,000 mls @ 100 mls/hr IV PER RATE MICHELLE Lactulose (Lactulose*) 30 ml PO Q6H PRN Reason: constipation Magnesium Hydroxide (Milk Of Magnesia Liq*) 30 ml PO BID MICHELLE Magnesium Hydroxide (Milk Of Magnesia Liq*) 30 ml PO Q6H PRN Reason: constipation Mometasone Furoate/Formoterol Fumar (Dulera 200/5 Mdi*) 1 puff INH BID MICHELLE Montelukast Sodium (Singulair Tab*) 10 mg PO QPM MICHELLE Morphine Sulfate (Morphine Inj (Syringe)*) 2 mg IV Q2H PRN Reason: PAIN Nf: [place] Eye Drops (0.7%) 1 drop BOTH EYES QAM MICHELLE Ondansetron HCl (Zofran Inj*) 4 mg IV Q6H PRN Reason: nausea Ondansetron HCl (Zofran Tab*) 4 mg PO Q6H PRN Reason: NAUSEA Oxybutynin Chloride (Ditropan Tab*) 5 mg PO BEDTIME MICHELLE Oxycodone HCl (Roxycodone Tab*) 10 mg PO Q4H PRN Reason: SEVERE PAIN Oxycodone/Acetaminophen (Percocet 5/325 Tab*) 2 tab PO Q4H PRN Reason: PAIN Oxycodone/Acetaminophen (Percocet 5/325 Tab*) 1 tab PO Q4H PRN Reason: PAIN Pharmacy Profile Note (Coumadin Daily Reminder*) 1 note FOLLOW UP 1700 [facility] Polyethylene Glycol/Electrolytes (Miralax*) 17 gm PO DAILY PRN Reason: Constipation Propranolol HCl (Inderal Tab*) 20 mg PO BID MICHELLE Trazodone HCl (Desyrel Tab*) 50 mg PO BEDTIME MICHELLE Venlafaxine HCl (Effexor Xr Cap*) 150 mg PO BID [facility] Vital Signs - 8 hr 10/29/17 10/29/17 10/29/17 03:15 04:05 04:08 Temperature 99.1 F Pulse Rate 93 Respiratory 16 16 Rate Blood Pressure 120/77 (mmHg) O2 Sat by Pulse 98 91 Oximetry 10/29/17 10/29/17 10/29/17 07:46 07:51 08:00 Temperature 97.8 F Pulse Rate 87 Respiratory 14 14 14 Rate Blood Pressure 112/76 (mmHg) O2 Sat by Pulse 92 92 Oximetry 10/29/17 08:08 Temperature Pulse Rate Respiratory 14 Rate Blood Pressure (mmHg) O2 Sat by Pulse Oximetry Oxygen Devices in Use Now: Nasal Cannula - 2L Appearance: NAD, laying in bed Ears/Nose/Mouth/Throat: Mucous Membranes Moist Respiratory: Symmetrical Chest Expansion and Respiratory Effort, Clear to Auscultation Cardiovascular: NL Sounds; No Murmurs; No JVD, RRR Abdominal: NL Sounds; No Tenderness; No Distention Extremities: No Edema Skin: No Rash or Ulcers, - - Dressing to right knee clean, dry and intact Neurological: Alert and Oriented x 3, NL Muscle Strength and Tone Lines/Tubes/Other Access: Clean, Dry and Intact Peripheral IV - site benign Nutrition: Taking PO's Result Diagrams: 10/29/17 05:30 10/28/17 06:03 Microbiology and Other Data: Microbiology 10/27/17 10:32 Anaerobic Culture - Preliminary Wound - Knee Right No Growth Day 1 Gram Stain - Final Wound Culture - Preliminary No Growth Day 1 Assess/Plan/Problems-Billing Assessment: Ms. De Dios is a 57 yo female with PMH significant for HTN, anxiety, cervical dystonia, chronic pain syndrome, ankylosing spondylitis, HLD, asthma, and osteoarthritis who presented to the hospital for an elective right total knee arthroplasy with Dr. Braden. - Patient Problems (1) Status post total right knee replacement Code(s): Z96.651 - PRESENCE OF RIGHT ARTIFICIAL KNEE JOINT SNOMED Code(s): 2848878783265 Comment: - POD #2, management per ortho - HH down from baseline, but stable, continue to trend - Continue OT, PT, pain management, and bowel regimen (2) Anemia Code(s): D64.9 - ANEMIA, UNSPECIFIED SNOMED Code(s): 510957513 Comment: - Acute blood loss anemia secondary to surgery - Continue to trend HH (3) Dysphagia Code(s): R13.10 - DYSPHAGIA, UNSPECIFIED SNOMED Code(s): 82114404 Comment: - S/P EGD 10/27 - GI consult, input appreciated - Biopsy pending (4) HTN (hypertension) Code(s): I10 - ESSENTIAL (PRIMARY) HYPERTENSION SNOMED Code(s): 27749736 Comment: - SBP 110-140's - Continue propanolol (5) History of asthma Code(s): Z87.09 - PERSONAL HISTORY OF OTHER DISEASES OF THE RESPIRATORY SYSTEM SNOMED Code(s): 784423923 Comment: - No signs of acute exacerbation - Continue singulair, dulera, rubina, and albuterol MDI PRN (6) Anxiety Code(s): F41.9 - ANXIETY DISORDER, UNSPECIFIED SNOMED Code(s): 28675065 Comment: - Continue propranolol, clonazepam, venlafaxine, and BuSpar (7) Cervical dystonia Code(s): G24.3 - SPASMODIC TORTICOLLIS SNOMED Code(s): 277104393 Comment: - Continue clonazepam (8) DVT prophylaxis Code(s): ZDY4522 - SNOMED Code(s): 510053020 Comment: - Lovenox bridge to warfarin (9) Full code status Code(s): Z78.9 - OTHER SPECIFIED HEALTH STATUS SNOMED Code(s): 396679388 Status and Disposition: Inpatient. Disposition per Ortho. Thank you for this consultation, we will continue to follow along.
[2017-10-29] MEDS: AZELASTINE BOTH NARES SCH ×2 (11:23→20:39)
[2017-10-29] MEDS: FLUTICASONE BOTH NARES SCH ×2 (11:23→20:39)
[2017-10-29] MEDS: PAZEO EYE BOTH EYES SCH (11:23)
--- NOTE | 2017-10-29 12:51 | PN ---
Progress Note - Progress Note Date of Service: 10/29/17 SOAP: Subjective: Pt resting comfortably in chair. States feeling very sleepy this AM. No complaints overnight. Pain well controlled. Denies F/C/N/T Vital Signs: Temp Pulse Resp BP Pulse Ox 98.0 F 82 16 116/78 94 10/29/17 12:04 10/29/17 12:04 10/29/17 12:04 10/29/17 12:04 10/29/17 12:10 Laboratory Last Values Hgb 10.9 g/dl (12.0-16.0) L 10/29/17 05:30 Hct 32 % (35-47) L 10/29/17 05:30 Plt Count 120 10^3/ul (150-450) L 10/29/17 05:30 MPV 10 um3 (7.4-10.4) 10/29/17 05:30 INR (Anticoag Therapy) 1.74 (0.77-1.02) H 10/29/17 05:30 Sodium 138 mmol/L (133-145) 10/28/17 06:03 Potassium 3.7 mmol/L (3.5-5.0) 10/28/17 06:03 Chloride 104 mmol/L (101-111) 10/28/17 06:03 Carbon Dioxide 32 mmol/L (22-32) 10/28/17 06:03 Anion Gap 2 mmol/L (2-11) 10/28/17 06:03 BUN 8 mg/dL (6-24) 10/28/17 06:03 Creatinine 0.63 mg/dL (0.51-0.95) 10/28/17 06:03 Est GFR ( Amer) 124.8 (>60) 10/28/17 06:03 Est GFR (Non-Af Amer) 97.1 (>60) 10/28/17 06:03 BUN/Creatinine Ratio 12.7 (8-20) 10/28/17 06:03 Glucose 90 mg/dL (70-100) 10/28/17 06:03 Calcium 8.4 mg/dL (8.6-10.3) L 10/28/17 06:03 Blood Type O Positive 10/27/17 08:11 Antibody Screen Negative 10/27/17 08:11 Objective: Dressing changed by Dr. Sampson, incision C/D/I. Calves soft, nontender. No edema. Sensation intact to lite touch. 2+ DP pulses. Assessment: 57 yo female s/p Right TKA POD#2 Plan: OOB, PT/OT WBAT Pain control DVT Prophylaxis - Coumadin 4 mg tonight Plan for D/C home tomorrow
[2017-10-29] MEDS ORDERED: Warfarin TAB(*) 4 MG PO ONE (17:00)
[2017-10-29] MEDS: Montelukast Sodium TAB* 10 MG PO SCH (17:34)
[2017-10-29] MEDS: traZODone TAB* 50 MG TAB PO SCH (20:42)
[2017-10-29] MEDS: Oxybutynin TAB* 5 MG PO SCH (20:42)
[2017-10-30] MEDS ORDERED: NS 0.9% 500 ML* 500 ML IV SCH (01:00)
[2017-10-30 05:32] LABS: Hematocrit 30 % (35-47); Hemoglobin 10.3 g/dl (12.0-16.0); Mean Platelet Volume 10 um3 (7.4-10.4); Platelet Count 136 10^3/ul (150-450)
[2017-10-30 05:38] LABS: INR 2.76 (0.77-1.02)
[2017-10-30] MEDS ORDERED: oxyCODONE TAB* 5 MG TAB PO PRN ×2 (07:55→07:56)
[2017-10-30] MEDS ORDERED: Acetaminophen TAB* 325 MG PO ONE (07:57)
--- NOTE | 2017-10-30 07:58 | PN ---
Subjective Date of Service: 10/30/17 Interval History: Patient seen and examined at bedside. Denies fever, chills, shortness of breath , chest discomfort, V/D. Pt states that she continues to have lightheadedness and dizziness when up. She received a 500 ml fluid bolus overnight. Pt has orthostatic VS this AM and is significantly orthostatic. Pt states that pain is better controlled today, and NSG staff are trying to limit narcotics. Pt isn't eating much, she is a picky eater but has been forcing herself to eat while she has been her. She also reports a poor appetite. She also reports intermittent nausea when up. Family History: Unchanged from Admission Social History: Unchanged from Admission Past Medical History: Unchanged from Admission Objective Active Medications: Acetaminophen (Tylenol Tab*) 650 mg PO Q4H PRN Reason: PAIN OR TEMPERATURE Albuterol (Ventolin Hfa Inhaler*) 1 puff INH BID PRN Reason: SOB/WHEEZING Azelastine/Fluticasone (Dymista(Nf)) 1 spray BOTH NARES BID MICHELLE Bisacodyl (Dulcolax Supp*) 10 mg [place] DAILY PRN Reason: constipation Clonazepam (Klonopin Tab(*)) 0.25 mg PO 0900,1700 MICHELLE Clonazepam (Klonopin Tab(*)) 0.5 mg PO 2100 MICHELLE Cyclobenzaprine HCl (Flexeril Tab*) 10 mg PO TID PRN Reason: SPASMS Diphenhydramine HCl (Benadryl Iv*) 12.5 mg IV Q6H PRN Reason: PRURITIS Docusate Sodium (Colace Cap*) 100 mg PO BID MICHELLE Sodium Chloride (Ns 0.9% 500 Ml*) 500 mls @ 150 mls/hr IV PER RATE MICHELLE Lactated Ringer's (Lactated Ringers 1000 Ml Bag*) 1,000 mls @ 1,000 mls/hr IV .BOLUS MICHELLE Lactulose (Lactulose*) 30 ml PO Q6H PRN Reason: constipation Magnesium Hydroxide (Milk Of Magnesia Liq*) 30 ml PO BID MICHELLE Magnesium Hydroxide (Milk Of Magnesia Liq*) 30 ml PO Q6H PRN Reason: constipation Mometasone Furoate/Formoterol Fumar (Dulera 200/5 Mdi*) 1 puff INH BID MICHELLE Montelukast Sodium (Singulair Tab*) 10 mg PO QPM [facility] Morphine Sulfate (Morphine Inj (Syringe)*) 2 mg IV Q2H PRN Reason: PAIN Pto: [place] Eye Drops (0.7%) 1 drop BOTH EYES QAM [facility] Ondansetron HCl (Zofran Inj*) 4 mg IV Q6H PRN Reason: nausea Ondansetron HCl (Zofran Tab*) 4 mg PO Q6H PRN Reason: NAUSEA Oxybutynin Chloride (Ditropan Tab*) 5 mg PO BEDTIME MICHELLE Oxycodone HCl (Roxycodone Tab*) 10 mg PO Q4H PRN Reason: SEVERE PAIN Oxycodone/Acetaminophen (Percocet 5/325 Tab*) 2 tab PO Q4H PRN Reason: PAIN Oxycodone/Acetaminophen (Percocet 5/325 Tab*) 1 tab PO Q4H PRN Reason: PAIN Pharmacy Profile Note (Coumadin Daily Reminder*) 1 note FOLLOW UP 1700 [facility] Polyethylene Glycol/Electrolytes (Miralax*) 17 gm PO DAILY PRN Reason: Constipation Propranolol HCl (Inderal Tab*) 20 mg PO BID [facility] Trazodone HCl (Desyrel Tab*) 50 mg PO BEDTIME [facility] Venlafaxine HCl (Effexor Xr Cap*) 150 mg PO BID [facility] Vital Signs - 8 hr 10/30/17 10/30/17 10/30/17 00:16 00:35 03:28 Temperature 98.8 F 98.9 F 99.3 F Pulse Rate 107 105 93 Respiratory 18 16 16 Rate Blood Pressure 100/57 103/71 126/77 (mmHg) O2 Sat by Pulse 84 93 95 Oximetry 10/30/17 10/30/17 10/30/17 07:29 07:31 07:35 Temperature 98.8 F Pulse Rate 81 86 93 Respiratory 16 16 Rate Blood Pressure 106/74 82/60 57/39 (mmHg) O2 Sat by Pulse 95 91 96 Oximetry Oxygen Devices in Use Now: None Appearance: NAD, laying in bed Respiratory: Symmetrical Chest Expansion and Respiratory Effort, Clear to Auscultation Cardiovascular: NL Sounds; No Murmurs; No JVD, RRR Abdominal: NL Sounds; No Tenderness; No Distention Extremities: - - Mild right LE edema Skin: - - Dressing to right knee clean, dry and intact Neurological: Alert and Oriented x 3, NL Muscle Strength and Tone Lines/Tubes/Other Access: Clean, Dry and Intact Peripheral IV - site benign Nutrition: Taking PO's Result Diagrams: 10/30/17 05:12 10/28/17 06:03 Microbiology and Other Data: Microbiology 10/27/17 10:32 Anaerobic Culture - Preliminary Wound - Knee Right No Growth Day 1 Gram Stain - Final Wound Culture - Preliminary No Growth Day 1 Assess/Plan/Problems-Billing Assessment: Ms. De Dios is a 57 yo female with PMH significant for HTN, anxiety, cervical dystonia, chronic pain syndrome, ankylosing spondylitis, HLD, asthma, and osteoarthritis who presented to the hospital for an elective right total knee arthroplasy with Dr. Braden. - Patient Problems (1) Status post total right knee replacement Code(s): Z96.651 - PRESENCE OF RIGHT ARTIFICIAL KNEE JOINT SNOMED Code(s): 1304143569728 Comment: - POD #3, management per ortho - HH down from baseline, but stable, continue to trend - Limit narcotics, will start Tylenol ATC - Continue OT, PT, pain management, and bowel regimen (2) Orthostatic dizziness Code(s): R42 - DIZZINESS AND GIDDINESS SNOMED Code(s): 666066165 Comment: - Pt with significant orthostatic hypotension - Suspect she is dehydrated - Will give a 1 L fluid bolus, hold propanolol and check orthostatic VS later today. Will also give gentle IVFs overnight (3) Anemia Code(s): D64.9 - ANEMIA, UNSPECIFIED SNOMED Code(s): 091087838 Comment: - Acute blood loss anemia secondary to surgery - HH stable, continue to trend HH (4) Dysphagia Code(s): R13.10 - DYSPHAGIA, UNSPECIFIED SNOMED Code(s): 83554782 Comment: - S/P EGD 10/27 - GI consult, input appreciated - Pt encouraged to take small bites and chew food well - Biopsy pending (5) HTN (hypertension) Code(s): I10 - ESSENTIAL (PRIMARY) HYPERTENSION SNOMED Code(s): 30958807 Comment: - SBP 90-120's - Hold propanolol (6) History of asthma Code(s): Z87.09 - PERSONAL HISTORY OF OTHER DISEASES OF THE RESPIRATORY SYSTEM SNOMED Code(s): 007339954 Comment: - No signs of acute exacerbation - Continue singulair, dulera, rubina, and albuterol MDI PRN (7) Anxiety Code(s): F41.9 - ANXIETY DISORDER, UNSPECIFIED SNOMED Code(s): 16716535 Comment: - Continue clonazepam, venlafaxine, and BuSpar (8) Cervical dystonia Code(s): G24.3 - SPASMODIC TORTICOLLIS SNOMED Code(s): 888983815 Comment: - Continue clonazepam (9) DVT prophylaxis Code(s): KXR0640 - SNOMED Code(s): 697692176 Comment: - Lovenox bridge to warfarin (10) Full code status Code(s): Z78.9 - OTHER SPECIFIED HEALTH STATUS SNOMED Code(s): 277490330 Status and Disposition: Inpatient. Disposition per Ortho. Thank you for this consultation, we will continue to follow along.
[2017-10-30] MEDS ORDERED: Acetaminophen TAB* 325 MG ONE (08:06)
[2017-10-30] MEDS: Mometasone/Formoter 200/5 MDI INH SCH ×2 (08:47→19:54)
[2017-10-30] MEDS: Docusate CAP* 100 MG PO SCH ×2 (08:51→19:50)
[2017-10-30] MEDS: Magnesium Hydroxide LIQ* 30 ML UDC PO SCH ×2 (08:51→19:50)
[2017-10-30] MEDS: clonazePAM TAB(*) 0.5 MG PO SCH ×3 (08:51→20:03)
[2017-10-30] MEDS: PAZEO EYE BOTH EYES SCH (08:52)
[2017-10-30] MEDS: Venlafaxine EXT RELEASE CAP* 75 MG PO SCH ×2 (08:52→20:03)
[2017-10-30] MEDS: AZELASTINE BOTH NARES SCH ×2 (08:53→20:04)
[2017-10-30] MEDS: FLUTICASONE BOTH NARES SCH ×2 (08:53→20:04)
--- NOTE | 2017-10-30 10:33 | PN ---
Progress Note - Progress Note Date of Service: 10/30/17 SOAP: Subjective: Pt lying comfortably in bed. She reports dizziness when standing. Pain is well controlled. Denies CP, SOB, F/C Vital Signs: Temp Pulse Resp BP Pulse Ox 98.8 F 93 16 57/39 96 10/30/17 07:29 10/30/17 07:35 10/30/17 08:51 10/30/17 07:35 10/30/17 07:35 Laboratory Last Values Hgb 10.3 g/dl (12.0-16.0) L 10/30/17 05:12 Hct 30 % (35-47) L 10/30/17 05:12 Plt Count 136 10^3/ul (150-450) L 10/30/17 05:12 MPV 10 um3 (7.4-10.4) 10/30/17 05:12 INR (Anticoag Therapy) 2.76 (0.77-1.02) H 10/30/17 05:12 Sodium 138 mmol/L (133-145) 10/28/17 06:03 Potassium 3.7 mmol/L (3.5-5.0) 10/28/17 06:03 Chloride 104 mmol/L (101-111) 10/28/17 06:03 Carbon Dioxide 32 mmol/L (22-32) 10/28/17 06:03 Anion Gap 2 mmol/L (2-11) 10/28/17 06:03 BUN 8 mg/dL (6-24) 10/28/17 06:03 Creatinine 0.63 mg/dL (0.51-0.95) 10/28/17 06:03 Est GFR ( Amer) 124.8 (>60) 10/28/17 06:03 Est GFR (Non-Af Amer) 97.1 (>60) 10/28/17 06:03 BUN/Creatinine Ratio 12.7 (8-20) 10/28/17 06:03 Glucose 90 mg/dL (70-100) 10/28/17 06:03 Calcium 8.4 mg/dL (8.6-10.3) L 10/28/17 06:03 Blood Type O Positive 10/27/17 08:11 Antibody Screen Negative 10/27/17 08:11 Objective: Dressing C/D/I. Calves soft, nontender. No edema. Sensation intact. 2+ DP pulses Assessment: 57 yo Female s/p right TKA 10/27/[address] Braden POD #3 Plan: OOB, PT/OT WBAT Pain control DVT prohylaxis - Hold coumadin today Orthostatic hypotension - Agree with fluid bolus, Appreciate hospitalist input D/C likely held today until medically stable
[2017-10-30] MEDS: Acetaminophen TAB* 325 MG PO SCH ×3 (12:47→23:46)
[2017-10-30] MEDS: Montelukast Sodium TAB* 10 MG PO SCH (17:32)
[2017-10-30] MEDS: Oxybutynin TAB* 5 MG PO SCH (20:03)
[2017-10-30] MEDS: traZODone TAB* 50 MG TAB PO SCH (20:04)
[2017-10-31] MEDS: Ondansetron INJ* 2 MG/ML VIAL IV PRN (04:22)
[2017-10-31 04:57] LABS: Hematocrit 28 % (35-47); Hemoglobin 9.4 g/dl (12.0-16.0); Mean Platelet Volume 10 um3 (7.4-10.4); Platelet Count 142 10^3/ul (150-450)
[2017-10-31 05:03] LABS: INR 2.1 (0.77-1.02)
[2017-10-31] MEDS: Acetaminophen TAB* 325 MG PO SCH ×2 (05:50→12:23)
[2017-10-31] MEDS: Magnesium Hydroxide LIQ* 30 ML UDC PO SCH (07:42)
[2017-10-31] MEDS: Docusate CAP* 100 MG PO SCH (07:42)
--- NOTE | 2017-10-31 08:19 | PN ---
Progress Note - Progress Note Date of Service: 10/31/17 SOAP: Subjective: 57 y/o female s/p Right TKA by Dr. Braden 10/27. Pt with orthostatic, dizziness over weekend. Multiple bouts of diarrhea, c/o weakness. holding down water well, + nausea, no vomiting. Pain controlled. [place] with PT in room. VSS afebrile overnight. Objective: General- Well appearing, NAD MSK- RLE- dressing removed, i c/d/i, no swelling, erythema, sutures in place, redressed. SITLT, PT 2+, + DF/PF against resistence. Vital Signs Temp 98.9 F 10/31/17 07:27 Pulse 111 10/31/17 08:00 Resp 18 10/31/17 08:59 BP 109/83 10/31/17 08:00 Pulse Ox 92 10/31/17 07:27 Intake & Output 10/30/17 10/31/17 10/31/17 18:59 06:59 18:59 Intake Total 1811 2030 Output Total 1200 1000 Balance 611 1030 Intake: IV Fluids 991 880 LR 880 NS (0.9%) 991 Oral 820 1150 Output: Urine 1200 1000 Other: Estimated Void Medium Date of Last Bowel Movement # Bowel Movements 1 1 Estimated Stool Amount Large Medium # Voids 1 Assessment: Stable 57 y/o female s/p Right TKA by Dr. Braden 10/27. Plan: - Orthostatics- increase in HR, BP stable, patient denies symptoms - H&H stable - DVT prophylaxis- INR theraputic. COumadin dosin/19- 2 mg 11/01- 4mg 11/02- 2mg 11/03- INR draw - OR cx's neg. - Home today - Follow up with within 7-10 days
[2017-10-31] MEDS: Venlafaxine EXT RELEASE CAP* 75 MG PO SCH (08:59)
[2017-10-31] MEDS: FLUTICASONE BOTH NARES SCH (08:59)
[2017-10-31] MEDS: Mometasone/Formoter 200/5 MDI INH SCH (08:59)
[2017-10-31] MEDS: AZELASTINE BOTH NARES SCH (08:59)
[2017-10-31] MEDS: clonazePAM TAB(*) 0.5 MG PO SCH (08:59)
[2017-10-31] MEDS: PAZEO EYE BOTH EYES SCH (09:00)
[2017-10-31] MEDS ORDERED: D5W 1/2 NS 1000 ML BAG* 1,000 ML IV SCH (10:00)
[2017-10-31] MEDS ORDERED: Scopolamine 1.5 mg* PATCH TRANSDERM SCH (10:00)
--- NOTE | 2017-10-31 12:04 | PN ---
Subjective Date of Service: 10/31/17 Interval History: Patient seen and examined at bedside. Denies fever, chills, shortness of breath , chest discomfort, N/V/D. Pt states that her pain is well controlled. Family History: Unchanged from Admission Social History: Unchanged from Admission Past Medical History: Unchanged from Admission Objective Active Medications: Acetaminophen (Tylenol Tab*) 975 mg PO Q6H MICHELLE Albuterol (Ventolin Hfa Inhaler*) 1 puff INH BID PRN Reason: SOB/WHEEZING Azelastine/Fluticasone (Dymista(Nf)) 1 spray BOTH NARES BID MICHELLE Bisacodyl (Dulcolax Supp*) 10 mg [place] DAILY PRN Reason: constipation Clonazepam (Klonopin Tab(*)) 0.25 mg PO 0900,1700 MICHELLE Clonazepam (Klonopin Tab(*)) 0.5 mg PO 2100 MICHELLE Cyclobenzaprine HCl (Flexeril Tab*) 10 mg PO TID PRN Reason: SPASMS Diphenhydramine HCl (Benadryl Iv*) 12.5 mg IV Q6H PRN Reason: PRURITIS Docusate Sodium (Colace Cap*) 100 mg PO BID MICHELLE Lactated Ringer's (Lactated Ringers 1000 Ml Bag*) 1,000 mls @ 1,000 mls/hr IV .BOLUS MICHELLE Dextrose/Sodium Chloride (D5w 1/2 Ns 1000 Ml Bag*) 1,000 mls @ 100 mls/hr IV PER RATE MICHELLE Lactulose (Lactulose*) 30 ml PO Q6H PRN Reason: constipation Magnesium Hydroxide (Milk Of Magnesia Liq*) 30 ml PO BID MICHELLE Magnesium Hydroxide (Milk Of Magnesia Liq*) 30 ml PO Q6H PRN Reason: constipation Mometasone Furoate/Formoterol Fumar (Dulera 200/5 Mdi*) 1 puff INH BID MICHELLE Montelukast Sodium (Singulair Tab*) 10 mg PO QPM MICHELLE Pto: [place] Eye Drops (0.7%) 1 drop BOTH EYES QAM MICHELLE Ondansetron HCl (Zofran Inj*) 4 mg IV Q6H PRN Reason: nausea Ondansetron HCl (Zofran Tab*) 4 mg PO Q6H PRN Reason: NAUSEA Oxybutynin Chloride (Ditropan Tab*) 5 mg PO BEDTIME MICHELLE Oxycodone HCl (Roxycodone Tab*) 5 mg PO Q4H PRN Reason: PAIN - MODERATE TO SEVERE Oxycodone HCl (Roxycodone Tab*) 10 mg PO Q4H PRN Reason: SEVERE PAIN Pharmacy Profile Note (Coumadin Daily Reminder*) 1 note FOLLOW UP 1700 [facility] Pharmacy Profile Note (Scopolamine Patch Remove*) 1 note PATCH OFF .AFTER 72 HOURS MICHELLE Polyethylene Glycol/Electrolytes (Miralax*) 17 gm PO DAILY PRN Reason: Constipation Scopolamine (Transderm-Scop 1.5 Mg Patch*) 1 patch TRANSDERM Q72H [place] Trazodone HCl (Desyrel Tab*) 50 mg PO BEDTIME MICHELLE Venlafaxine HCl (Effexor Xr Cap*) 150 mg PO BID [facility] Vital Signs - 8 hr 10/31/17 10/31/17 10/31/17 04:17 07:27 07:55 Temperature 98.6 F 98.9 F Pulse Rate 103 98 98 Respiratory 16 16 Rate Blood Pressure 131/84 124/76 120/77 (mmHg) O2 Sat by Pulse 94 92 Oximetry 10/31/17 10/31/17 10/31/17 07:57 08:00 08:59 Temperature Pulse Rate 108 111 Respiratory 18 18 Rate Blood Pressure 128/48 109/83 (mmHg) O2 Sat by Pulse 92 Oximetry 10/31/17 10:59 Temperature Pulse Rate Respiratory 18 Rate Blood Pressure (mmHg) O2 Sat by Pulse Oximetry Oxygen Devices in Use Now: None Appearance: NAD, laying in bed Ears/Nose/Mouth/Throat: Mucous Membranes Moist Respiratory: Symmetrical Chest Expansion and Respiratory Effort, Clear to Auscultation Cardiovascular: NL Sounds; No Murmurs; No JVD, RRR Abdominal: NL Sounds; No Tenderness; No Distention Extremities: - - Mild right LE edema Skin: - - Dressing to right knee clean, dry, and intact Neurological: Alert and Oriented x 3, NL Muscle Strength and Tone Lines/Tubes/Other Access: Clean, Dry and Intact Peripheral IV - site benign Nutrition: Taking PO's Result Diagrams: 10/31/17 04:48 10/28/17 06:03 Microbiology and Other Data: Microbiology 10/27/17 10:32 Anaerobic Culture - Preliminary Wound - Knee Right No Growth Day 1 Gram Stain - Final Wound Culture - Preliminary No Growth Day 1 Assess/Plan/Problems-Billing Assessment: Ms. De Dios is a 57 yo female with PMH significant for HTN, anxiety, cervical dystonia, chronic pain syndrome, ankylosing spondylitis, HLD, asthma, and osteoarthritis who presented to the hospital for an elective right total knee arthroplasy with Dr. Braden. - Patient Problems (1) Status post total right knee replacement Code(s): Z96.651 - PRESENCE OF RIGHT ARTIFICIAL KNEE JOINT SNOMED Code(s): 5588697364661 Comment: - POD #4, management per ortho - HH down from baseline, but stable, continue to trend - Limit narcotics, will start Tylenol ATC - Continue OT, PT, pain management, and bowel regimen (2) Orthostatic dizziness Code(s): R42 - DIZZINESS AND GIDDINESS SNOMED Code(s): 610084847 Comment: - Pt with significant orthostatic hypotension - Suspect she is dehydrated - Received fluid boluses, hold propanolol - Orthostatic hypotension improving (3) Anemia Code(s): D64.9 - ANEMIA, UNSPECIFIED SNOMED Code(s): 406190957 Comment: - Acute blood loss anemia secondary to surgery - HH stable, continue to trend HH (4) Dysphagia Code(s): R13.10 - DYSPHAGIA, UNSPECIFIED SNOMED Code(s): 92423037 Comment: - S/P EGD 10/27 - GI consult, input appreciated - Pt encouraged to take small bites and chew food well - Biopsy pending (5) HTN (hypertension) Code(s): I10 - ESSENTIAL (PRIMARY) HYPERTENSION SNOMED Code(s): 81749581 Comment: - SBP 90-120's - Hold propanolol (6) History of asthma Code(s): Z87.09 - PERSONAL HISTORY OF OTHER DISEASES OF THE RESPIRATORY SYSTEM SNOMED Code(s): 301961883 Comment: - No signs of acute exacerbation - Continue singulair, dulera, rubina, and albuterol MDI PRN (7) Anxiety Code(s): F41.9 - ANXIETY DISORDER, UNSPECIFIED SNOMED Code(s): 91259684 Comment: - Continue clonazepam, venlafaxine, and BuSpar (8) Cervical dystonia Code(s): G24.3 - SPASMODIC TORTICOLLIS SNOMED Code(s): 095320210 Comment: - Continue clonazepam (9) DVT prophylaxis Code(s): MDT1799 - SNOMED Code(s): 021236647 Comment: - Warfarin (10) Full code status Code(s): Z78.9 - OTHER SPECIFIED HEALTH STATUS SNOMED Code(s): 745220560 Status and Disposition: Inpatient. Disposition per Ortho. Thank you for this consultation.
[2017-10-31 12:28] VITALS: BP 137/81
--- NOTE | 2017-11-01 13:56 | DS ---
DISCHARGE SUMMARY: DATE OF ADMISSION: 10/27/17 DATE OF DISCHARGE: 10/31/17 ATTENDING PROVIDER: Eugenie Braden MD * (DICTATED BY LATHA CHAKRABORTY) PROCEDURE: Right total knee arthroplasty. CHIEF COMPLAINT: 1. Right knee pain. 2. Hypertension. 3. Anxiety. 4. Cervical dystonia on the right side. 5. Chronic pain syndrome. 6. Ankylosing spondylitis. 7. Hyperlipidemia. 8. Asthma. DISCHARGE DIAGNOSES: 1. Status post right total knee arthroplasty, uncomplicated. 2. Hypertension. 3. Anxiety. 4. Cervical dystonia. 5. Chronic pain syndrome. 6. Ankylosing spondylitis. 7. Hyperlipidemia. 8. Asthma. 9. Foreign body sensation in the esophagus. CONSULTATIONS: 1. Physical Therapy. 2. Occupational Therapy. 3. Medicine. 4. GI. BRIEF HISTORY: Ms. De Dios is a very pleasant 57-year-old female with severe end- stage degenerative arthritis of the right knee who failed conservative treatment and elected to undergo a right total knee arthroplasty on 10/27/[address] Braden. HOSPITAL COURSE: The patient was admitted to [facility] on 10/27/17 where she underwent a right total knee arthroplasty which was uncomplicated. Postoperatively she recovered on the surgical short-stay unit. On postoperative day #1, the patient had a sensation of foreign body and was seen by GI, she had no evidence on upper endoscopy which did not show a foreign body and the patient was told to chew her food well. Her Coy was removed on postoperative day 2 and she was voiding on her own without difficulty. The patient also suffered from nausea as well as orthostatic hypotension which was treated with IV boluses as well as holding her hypertension medications. She advanced to a regular diet. The pain was controlled with p.o. oxycodone. She was restarted on her home medications other than her propranolol blood pressure. Her labs and vital signs remained stable on the date of discharge. She was able to bear weight and tolerated physical therapy in the right lower extremity. Her DVT prophylaxis was managed with Lovenox and Coumadin until she reached a therapeutic INR. By postoperative day 4, she was orthopedically and medically stable for discharge to home with home services. PHYSICAL EXAMINATION: General: Well appearing, in no acute distress, alert and oriented, appeared her stated age, resting in bed comfortably. Musculoskeletal: Right lower extremity dressing was removed. The incision was clean, dry and intact. No swelling, erythema. Sutures in place. Area was re- dressed without difficulties. Sensation was intact to light touch. Posterior tibial pulses were 2+, positive dorsiflexion and plantar flexion . Vital Signs: Temperature 98.9, pulse 101, respirations 18, blood pressure 109/83, pulse oxygenation 92% on room air. LABORATORY DATA: On the date of discharge includes H and H of 9.4 and 28 with INR of 2.10. DISCHARGE MEDICATIONS: 1. Acetaminophen 325 mg p.o. q.6 hours p.r.n. for pain. 2. Albuterol 1 to 2 puffs inhale b.i.d. p.r.n. 3. Ilene-C 1000 mg 1 tablet p.o. daily. 4. Aspirin 81 mg p.o. daily. 5. Azelastine/fluticasone 1 spray both nares b.i.d. 6. Botox p.r.n. 7. Calcium, mag, zinc with vitamin D3 tablet 1 tablet p.o. q.a.m. 8. Zyrtec 10 mg p.o. q.a.m. 9. Clonazepam 0.5 mg to 1 mg p.o. p.r.n. 10. Flexeril 5 mg p.o. t.i.d. 11. Colace 100 mg p.o. b.i.d. 12. Epinephrine 1 injection p.r.n. allergic reaction. 13. Lidocaine 100 mg p.o. 14. Dulera 1 puff inhalation b.i.d. 15. Singulair 10 mg p.o. q.p.m. 16. Oxybutynin 5 mg p.o. q.h.s. 17. Oxycodone 5 to 10 mg p.o. q.4 to 6 hours for postoperative pain. 18. Pazeo eye drops 0.7% 1 drop both eyes q.a.m. 19. Scopolamine 1.5 mg patch topically every 72 hours. 20 Trazodone 50 mg p.o. q.h.s. 21. Effexor 150 mg p.o. b.i.d. 22. B-complex 1 capsule p.o. daily. 23. Coumadin 10 mg p.o. 1 to 3 tablets daily per physician's instructions at 5 p.m. CONDITION ON DISCHARGE: Stable. DISCHARGE INSTRUCTIONS: Mrs. De Dios is a very pleasant 57-year-old female status post right total knee arthroplasty which was uncomplicated. She is orthopedically and medically stable to return home at the same place, she is to hold her blood pressure medication and be seen by Dr. Winchester within the next 2 to 3 days. Have blood pressure rechecked to resume her medication. She is allowed to shower; however, no bathing or submerging her wound. She was advised not to rise too fast from a lying or sitting position due to her history of orthostatic hypotension while inhouse. She was set up for home care for the visiting nurses to do wound check as well as check her blood level for INR on Mondays and . Her Coumadin home dosing is 2 mg on 10/31/17 and 4 mg on 11/01/17 and 2 mg on 11/02/17 with INR draw on 11/03/17. She will take oxycodone 5 to 10 mg as needed every 4 to 6 hours for pain as well as Colace to prevent constipation. She will contact the office immediately if she has any fever, chills, redness, erythema or drainage around the wound site or go to the ER immediately if any chest pain or shortness of breath. LATHA CHAKRABORTY [id number]/[facility] #: [id number] ABILIO
[2017-11-03] MEDS ORDERED: Scopolamine PATCH Remove* 1 NOTE MISC PATCH OFF SCH (10:00)
== END 2017-10-31 13:10 | disposition home health service (06) | DRG 302 ==
LOC: AA 07:39 → SSU 09:40
PROVIDERS: ADMIT Orthopaedic Surgery Adult Reconstructive Orthopaedic Surgery; ATTEND Orthopaedic Surgery Adult Reconstructive Orthopaedic Surgery
PROC: 0DB98ZX Excision of Duodenum, Via Natural or Artificial Opening Endoscopic, Diagnostic (ICD-10-PCS; 2017-10-27)
PROC: 0DB58ZX Excision of Esophagus, Via Natural or Artificial Opening Endoscopic, Diagnostic (ICD-10-PCS; 2017-10-27)
PROC: 0SRC069 Replacement of Right Knee Joint with Oxidized Zirconium on Polyethylene Synthetic Substitute, Cemented, Open Approach (ICD-10-PCS; principal; 2017-10-27 10:00)
DX: M17.31 Unilateral post-traumatic osteoarthritis, right knee (principal); D62 Acute posthemorrhagic anemia; I10 Essential (primary) hypertension; F41.9 Anxiety disorder, unspecified; G89.4 Chronic pain syndrome; M45.9 Ankylosing spondylitis of unspecified sites in spine; J45.909 Unspecified asthma, uncomplicated; E78.5 Hyperlipidemia, unspecified; M25.461 Effusion, right knee; M21.061 Valgus deformity, not elsewhere classified, right knee; M25.761 Osteophyte, right knee; X58.XXXS Exposure to other specified factors, sequela; Z98.51 Tubal ligation status; Z90.710 Acquired absence of both cervix and uterus; Z88.5 Allergy status to narcotic agent; Z82.49 Family history of ischemic heart disease and other diseases of the circulatory system; Z88.8 Allergy status to other drugs, medicaments and biological substances; Z79.01 Long term (current) use of anticoagulants; Z79.82 Long term (current) use of aspirin; Z83.3 Family history of diabetes mellitus; Z82.3 Family history of stroke; Z81.8 Family history of other mental and behavioral disorders; T14.90XS Injury, unspecified, sequela; R19.7 Diarrhea, unspecified; R13.10 Dysphagia, unspecified; R09.89 Other specified symptoms and signs involving the circulatory and respiratory systems; R42 Dizziness and giddiness; I95.1 Orthostatic hypotension; R53.1 Weakness; R11.0 Nausea
CPT/HCPCS: 36415; 80048; 85014; 85018; 85049; 85610; 86850; 86900; 86901; 87045; 87046; 87070; 87073; 87077; 87205; 87493; 87899; 88305; 88311; 88312; 94640; 94760; 99156; 99157; A9270-GY; C1776; J0690; J1100; J1610; J1650; J2250; J2270; J2405; J2704; J2795; J3010; J7614